=== PATIENT | male | born 1985 | race Caucasian/White ===

== ENCOUNTER 2023-08-26 14:33 | Outpatient (AMB) | payer MEDICAID, SELFPAY ==
--- NOTE | 2023-08-26 15:16 | A.SPINEOV_ITS ---
Intake Intake Visit Reasons: Recurrent back pain. Intake Note: Mr. Faust is here today c/o recurrent back pain. 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 We did an L4-S1 anterior/oblique interbody fusion on him a few years back. He recovered nicely from surgery, and eventually went back to work. 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 He was in his usual state of function, until sometime over the last 6 months to a year when he started to notice progressive intense pain in between his shoulder blades at the base of his neck radiating down into his left arm as well as a significant increase in his back pain going down to his left leg into his foot. The patient tried [id number] medications as needed without any relief. He continues to work as he needed the income. 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 He has not done any physical therapy or injections at this point because those things have not worked for him in the past. On my exam, he does have slight left hand weakness but other than that his exam is intact with normal reflexes, no Yanez's sign. What I suspect is going on here is that he has had a progression of the degeneration above his fusion that was seen on his previous MRI last year. Also, given that he is having hand weakness and pain radiating down his left arm with neck pain I suspect he also has progression of his previous cervical degenerative disc disease as well. Since all of his imaging is over a year old I would like to repeat cervical and lumbar and see him back for evaluation. I will get a set of x-rays on him when he returns to assess his lumbar hardware as well. He gets extremely claustrophobic in the MRIs, so I told him to find out what we gave him last time at his pharmacy and I would be glad to prescribe it. Total amount of time spent in this visit was 20 minutes in discussion of symptoms, previous cervical and lumbar imaging results and subsequent plan of care Yuval Valdez MD,PhD [facility] Orders: Orders MR lumbar spine wo/w con Today M51.36 - Other intervertebral disc degeneration, lumbar region MR cervical spine wo con Today M54.12 - Radiculopathy, cervical region Coding Level of Care Code Est Pt Level 3 (17996) Diagnoses Cervical radiculopathy M54.12 Lumbar degenerative disc disease M51.36
== END 2023-08-26 15:58 | disposition home or self-care (01) ==
PROVIDERS: Visit Provider Physician Assistant
DX: M54.12 Radiculopathy, cervical region (principal); M51.36 Other intervertebral disc degeneration, lumbar region
CPT/HCPCS: 99213

== ENCOUNTER → 2023-08-26 14:33 | Outpatient (BNVA) | payer MEDICAID, SELFPAY | PROVIDERS: Visit Provider Physician Assistant | DX: M54.12 Radiculopathy, cervical region (principal); M51.36 Other intervertebral disc degeneration, lumbar region | CPT/HCPCS: 99212 ==

== ENCOUNTER → 2023-12-02 14:22 | Outpatient (BNV) | payer MEDICAID, SELFPAY | PROVIDERS: Visit Provider Internal Medicine Cardiovascular Disease | DX: R94.31 Abnormal electrocardiogram [ECG] [EKG] (principal); Z01.810 Encounter for preprocedural cardiovascular examination | CPT/HCPCS: 93010 ==

== ENCOUNTER 2023-12-16 06:23 | Day surgery (SDC) | payer MEDICAID, SELFPAY ==
--- NOTE | 2023-12-02 | ECG_ITS ---
Test Reason : PREOP Blood Pressure : / mmHG Vent. Rate : 090 BPM Atrial Rate : 090 BPM P-R Int : 146 ms QRS Dur : 090 ms QT Int : 372 ms P-R-T Axes : 031 -11 027 degrees QTc Int : 455 ms Normal sinus rhythm Minimal voltage criteria for LVH, may be normal variant ( R in aVL ) Borderline ECG No previous ECGs available Referred By: Krista Camacho Electronically Signed By:JIM CHÁVEZ MD
[2023-12-02 13:23] VITALS: BP 167/82; PULSE 90; RESP 20; O2SAT 98; BMI 50.5
[2023-12-02 14:49] LABS: Hematocrit 47.6 % (42.0-52.0); Hemoglobin 15.9 g/dl (14.0-18.0); Mean Corpuscular HGB Conc 33.4 g/dl (31.0-36.0); Mean Corpuscular Hemoglobin 29.2 pg (27.0-33.0); Mean Corpuscular Volume 87.3 fL (80.0-98.0); Mean Platelet Volume 10.4 fL (9.4-12.4); Platelet Count 280 X10*3/uL (160-400); Red Blood Count 5.45 X10*6/uL (4.60-5.80); Red Cell Distribution Width 13.3 % (11.0-16.0); White Blood Count 9.6 X10*3/uL (4.8-10.8)
[2023-12-02 15:31] LABS: Estimated Average Glucose 111 mg/dL; Hemoglobin A1c % 5.5 % (<6.0)
[2023-12-02 16:13] LABS: Anion Gap 9 (12-20); Blood Urea Nitrogen 15 mg/dL (9-16); Calcium 9.5 mg/dL (8.4-10.2); Carbon Dioxide 29 mmol/L (22-29); Chloride 105 mmol/L (96-108); Creatinine Clr Calc Pharmacy 159.4; Estimated Glomerular Filt Rate > 60; Glucose Random 75 mg/dL (60-115); Potassium 3.9 mmol/L (3.3-5.1); Sodium 139 mmol/L (135-145)
[2023-12-16] VITALS (10 sets, daily range): BP systolic 107–165; BP diastolic 58–103; PULSE 81–113; RESP 12–20; TEMP 36.1–36.2; O2SAT 94–98
--- NOTE | ~2023-12-16 | FL_ITS ---
EXAMINATION: XR FLUOROSCOPY WITH IMAGES CLINICAL INFORMATION: Cervical disc replacement. COMPARISON: None available. TECHNIQUE: Fluoroscopy Supervised By: Dr. Flaquito Valdez. Fluoroscopy Time: 13.2. Cumulative Dose: 26673 mGy. DAP: 0.5420 Gy-cm2. Images: 4. FINDINGS: Intraoperative fluoroscopy and spot films were performed during a procedure in the OR. An anterior needle is seen at the C5-C6 level. A disc prosthesis is placed however based upon the cone nature of the radiographs I cannot ascertain the level but presumably this is C5-C6. Please see Dr. Flaquito Valdez' report for complete details. FL/FL guidance in OR IMPRESSION: Intraoperative fluoroscopy and spot films were obtained. Please see Dr. Flaquito Valdez' report for complete details.
[2023-12-16] MEDS: Gabapentin 300 MG CAPSULE PO ×2 (06:25)
[2023-12-16] MEDS: methocarbamoL 750 MG TABLET PO (06:25)
[2023-12-16] MEDS: Lactated Ringers 1,000 ML 100 ML IVCONT (06:48)
--- NOTE | 2023-12-16 06:57 | MHC.SHP ---
Pre-Procedural Eval Section A - 24 Hr Update-Section A only Date of Service: 12/16/23 The patient is an INPATIENT: No Changes since office visit: No Cold of Flu in the past 2 weeks, No New Medical Problems, No Changes in Medication and No Patient answered all questions The patient has been examined within 24 hours of the surgical procedure. The History & Physical has been completed within 30 days and I have reviewed it.: No Section B - Complete if H&P > 30 days Chief Complaint: Radiculopathy, cervical region Allergies: Allergies Allergy/AdvReac Type Severity Reaction Status Date / Time aluminum Allergy Intermediate Rash Verified 12/01/23 14:15 banana Allergy Intermediate Itching Verified 12/01/23 14:15 Review of Systems Sugical H&P ROS: Negative: Constitution, Cardiovascular, Respiratory, Neurological, Psychiatric, Hem-Onc, Allergic/Immunologic, Gastrointestinal, Genitourinary, Musculoskeletal, Integumentary, Endocrine and Eyes/Ears/Nose/Throat Exam Surgical H&P Exam: Not Evaluated: HEENT, Not Evaluated: Heart, Not Evaluated: Lungs, Not Evaluated: Extremities, Not Evaluated: Abdomen, Not Evaluated: Skin and Not Evaluated: Neurological Plan Diagnosis/Plan: Unchanged C5-6 total disk arthroplasty Time Spent With Patient Time: Total time managing care of this patient today __5__ minutes.
--- NOTE | 2023-12-16 07:15 | HO.ANESPROP2 ---
Documented by User: Krista Camacho NP 12/14/23 10:54 HPI - Anesthesia Eval Consult details Narrative: 38yo M for C5-6 Cervical Disc Replacement, 12/16/23 No recent illness No CP/SOB with work/walking daily Asthma. Stable. Symbicort. Albuterol 2-3 x weekly HTN. BP up at PAT. Takes arb QAM. Pt reports pain related GERD. Diet controlled, prn tums High risk STOP-bang Possible FAYE - Dr Lopez aware [facility] Active Problems Active Problems: All Active Problems Lumbar degenerative disc disease (Acute) Cervical radiculopathy (Acute) Past Medical History Medical History (Updated 12/02/23 @ 13:16 by Rand Neumann RN) History of MRSA infection Basal cell carcinoma Back pain Neck pain GERD (gastroesophageal reflux disease) Elevated cholesterol HTN (hypertension) Asthma Family History Family history of problems with anesthesia: No Surgical History Surgical History (Updated 12/02/23 @ 13:19 by Rand Neumann RN) Hx of wisdom tooth extraction Hx of tonsillectomy Hx of vasectomy Hx of hand surgery Hx of carpal tunnel repair Hx of lumbar discectomy History of lumbar fusion History of Problems with Anesthesia: No Social History Social History Are you a primary medicare sales representative to a significant other at home: No Do you presently have visiting nurse or other home services: No Patient Tobacco Use Status: Never used Tobacco Substance Use Type Other:: edibles Substance Use Frequency: Occasionally Have you been hit, kicked, punched, or otherwise hurt by someone within the past year? If so, by whom?: No Are you DNR?: No Advance Directives: No (significant other is primary contact) Advance Directives Information Provided: Yes Advance Directives on File: No Recently lost weight without trying: No Eating poorly because of decreased appetite: No Nutrition Risks: No Nutritional Risk Poor oral hygiene: No (extracted teeth) Meds Allergies Allergy/AdvReac Type Severity Reaction Status Date / Time aluminum Allergy Intermediate Rash Verified 12/01/23 14:15 banana Allergy Intermediate Itching Verified 12/01/23 14:15 Home Medications ?Medication ?Instructions ?Recorded ?Confirmed ?Last Taken ?Type albuterol sulfate 90 mcg/actuation 2 puff inhalation Q4H PRN wheezing 12/01/23 12/02/23 12/16/23 History aerosol inhaler (Ventolin HFA) budesonide-formoterol HFA 160 2 puff inhalation BID 12/01/23 12/02/23 12/16/23 History mcg-4.5 mcg/actuation aerosol inhaler (Symbicort) ibuprofen 800 mg tablet 800 mg PO TID 12/01/23 12/02/23 12/07/23 History loratadine 10 mg tablet 10 mg PO QAM 12/01/23 12/02/23 12/15/23 History losartan 25 mg tablet 25 mg PO QAM 12/01/23 12/02/23 12/15/23 History montelukast 10 mg tablet 10 mg PO QAM 12/01/23 12/02/23 12/15/23 History atorvastatin 10 mg tablet 10 mg PO QAM 12/02/23 12/02/23 12/16/23 History Exam Height,Weight and Vital Signs: Height 5 ft 4 in Weight 133.519 kg Last Vital Signs Pulse 90 12/02/23 13:23 Resp 20 12/02/23 13:23 BP 167/82 H 12/02/23 13:23 Pulse Ox 98 12/02/23 13:23 O2 Del Method Room Air 12/02/23 13:23 Pertinent Lab Results Pertinent Lab Results: Lab Results 12/02/23 Range/Units 14:18 WBC 9.6 (4.8-10.8) X10*3/uL RBC 5.45 (4.60-5.80) X10*6/uL Hgb 15.9 (14.0-18.0) g/dl Hct 47.6 (42.0-52.0) % MCV 87.3 (80.0-98.0) fL MCH 29.2 (27.0-33.0) pg MCHC 33.4 (31.0-36.0) g/dl RDW 13.3 (11.0-16.0) % Plt Count 280 (160-400) X10*3/uL MPV 10.4 (9.4-12.4) fL Absolute Nucleated RBC 0.000 (0.0-0.012) X10*3/uL Nucleated RBC % (auto) 0.0 (0.0-0.2) /100WBC Sodium 139 (135-145) mmol/L Potassium 3.9 (3.3-5.1) mmol/L Chloride 105 (96-108) mmol/L Carbon Dioxide 29 (22-29) mmol/L Anion Gap 9 L (12-20) BUN 15 (9-16) mg/dL Creatinine 0.79 (0.5-1.4) mg/dL Estim Creat Clear Calc 159.4 Estimated GFR > 60 Random Glucose 75 (60-115) mg/dL Estimat Average Glucose 111 mg/dL Hemoglobin A1c % 5.5 (<6.0) % Calcium 9.5 (8.4-10.2) mg/dL Narrative Narrative: EKG 11/2023 Vent. Rate : 090 BPM Atrial Rate : 090 BPM P-R Int : 146 ms QRS Dur : 090 ms QT Int : 372 ms P-R-T Axes : 031 -11 027 degrees QTc Int : 455 ms Normal sinus rhythm Minimal voltage criteria for LVH, may be normal variant ( R in aVL ) Borderline ECG No previous ECGs available Airway Mallampati Class: III TM Dist: <=3cm Neck ROM: Limited Loose/Missing/Broken Teeth: Yes (Molars missing, crowned molars) Heart: RRR Lungs: CTAB Assessment and Plan Assessment Anesthesia Assessment: Anesthesia Plan Discussed and PAT Visit Final Anesthetic Review Family History of Problems with Anesthesia: No History of Problems with Anesthesia: No Documented by User: Sandra Ellison DO 12/16/23 07:22 HPI - Anesthesia Eval Consult details Narrative: 38yo M for C5-6 Cervical Disc Replacement, 12/16/23 No recent illness No CP/SOB with work/walking daily Asthma. Stable. Symbicort. Albuterol 2-3 x weekly HTN. BP up at PAT. Takes arb QAM. Pt reports pain related GERD. Diet controlled, prn tums High risk STOP-bang [facility] Past Medical History Medical History (Updated 12/02/23 @ 13:16 by Rand Neumann RN) History of MRSA infection Basal cell carcinoma Back pain Neck pain GERD (gastroesophageal reflux disease) Elevated cholesterol HTN (hypertension) Asthma Family History Family history of problems with anesthesia: No Surgical History Surgical History (Updated 12/02/23 @ 13:19 by Rand Neumann RN) Hx of wisdom tooth extraction Hx of tonsillectomy Hx of vasectomy Hx of hand surgery Hx of carpal tunnel repair Hx of lumbar discectomy History of lumbar fusion History of Problems with Anesthesia: No Social History Social History Are you a primary medicare sales representative to a significant other at home: No Do you presently have visiting nurse or other home services: No Patient Tobacco Use Status: Never used Tobacco Substance Use Type Other:: edibles Substance Use Frequency: Occasionally Have you been hit, kicked, punched, or otherwise hurt by someone within the past year? If so, by whom?: No Are you DNR?: No Advance Directives: No (significant other is primary contact) Advance Directives Information Provided: Yes Advance Directives on File: No Recently lost weight without trying: No Eating poorly because of decreased appetite: No Nutrition Risks: No Nutritional Risk Poor oral hygiene: No (extracted teeth) Meds Allergies Allergy/AdvReac Type Severity Reaction Status Date / Time aluminum Allergy Intermediate Rash Verified 12/01/23 14:15 banana Allergy Intermediate Itching Verified 12/01/23 14:15 Home Medications ?Medication ?Instructions ?Recorded ?Confirmed ?Last Taken ?Type albuterol sulfate 90 mcg/actuation 2 puff inhalation Q4H PRN wheezing 12/01/23 12/02/23 12/16/23 History aerosol inhaler (Ventolin HFA) budesonide-formoterol HFA 160 2 puff inhalation BID 12/01/23 12/02/23 12/16/23 History mcg-4.5 mcg/actuation aerosol inhaler (Symbicort) ibuprofen 800 mg tablet 800 mg PO TID 12/01/23 12/02/23 12/07/23 History loratadine 10 mg tablet 10 mg PO QAM 12/01/23 12/02/23 12/15/23 History losartan 25 mg tablet 25 mg PO QAM 12/01/23 12/02/23 12/15/23 History montelukast 10 mg tablet 10 mg PO QAM 12/01/23 12/02/23 12/15/23 History atorvastatin 10 mg tablet 10 mg PO QAM 12/02/23 12/02/2312/15/24 History Exam Exam Date and Time: December 16, 2023 0712 Height,Weight and Vital Signs: Height 5 ft 4 in Weight 133.519 kg Last Vital Signs Pulse 90 12/02/23 13:23 Resp 20 12/02/23 13:23 BP 167/82 H 12/02/23 13:23 Pulse Ox 98 12/02/23 13:23 O2 Del Method Room Air 12/02/23 13:23 Height 5 ft 4 in Weight 133.519 kg Vital Signs Pulse Rate 90 12/02/23 13:23 Respiratory Rate 20 12/02/23 13:23 Blood Pressure 167/82 H 12/02/23 13:23 Pulse Oximetry 98 12/02/23 13:23 Oxygen Delivery Method Room Air 12/02/23 13:23 Temperature 97.1 F 12/16/23 06:27 Pulse Rate 81 12/16/23 06:27 Respiratory Rate 20 12/16/23 06:27 Blood Pressure 137/85 12/16/23 06:27 Pulse Oximetry 96 12/16/23 06:27 Oxygen Delivery Method Room Air 12/16/23 06:27 Airway Mallampati Class: III TM Dist: <=3cm Neck ROM: Poor (secondary to pain) Loose/Missing/Broken Teeth: Yes (some missing molars but patient denies any loose or broken teeth) Heart: S1S2 Assessment and Plan Assessment Anesthesia Assessment: Anesthesia Plan Discussed and Chart Reviewed Final Anesthetic Review Family History of Problems with Anesthesia: No History of Problems with Anesthesia: No NPO: Yes ASA Class: III Final Preanesthetic Review: No Changes in Pt Med Stat, Meds/Allgs Chart Reviewed, Consent Obtained/Reviewed and Anes Risks/Benef Reviewed Patient Risk: Intermediate Procedure Risk: Intermediate Anesthetic Plan Anesthetic Plan: GA and Agree w/ Assess. and Plan Disposition: Standard PACU
--- NOTE | 2023-12-16 07:39 | P.DS_ITS ---
DS: Providers Provider Date of Service: 12/16/23 Date of discharge: 12/16/23 Primary care physician: Nonstaff Physician Admitting clinician: Flaquito Valdez DS: Diagnosis Discharge Diagnosis (1) Cervical radiculopathy: Status: Acute DS: Summary Time Attestation Discharge Coordination Time (in mins): 4 Quality: Safe Use of Opioids Does Pt have an Active Cancer Diagnosis on the Problem List?: No Quality: Stroke Does the patient have a stroke diagnosis?: No Physical Exam Vital Signs: Vital Signs: Last Vital Signs Temp 97.1 F 12/16/23 06:27 Pulse 81 12/16/23 06:27 Resp 20 12/16/23 06:27 BP 137/85 12/16/23 06:27 Pulse Ox 96 12/16/23 06:27 O2 Del Method Room Air 12/16/23 06:27 BMI result Body Mass Index 50.5 Discharge Plan Discharge Patient Disposition: Home, Self-Care Referrals: Physician,Nonstaff [Primary Care Provider] - 1 Week Discharge Medications: New oxycodone 5 mg tablet 5 mg PO Q4H PRN (Reason: pain) Qty: 30 0RF Rx Instructions: Partial Fill upon patient request. docusate sodium [Colace] 100 mg capsule 100 mg PO BID Qty: 20 0RF Continued losartan 25 mg tablet 25 mg PO QAM albuterol sulfate [Ventolin HFA] 90 mcg/actuation HFA aerosol inhaler 2 puff INHALATION Q4H PRN (Reason: wheezing) loratadine 10 mg Tablet 10 mg PO QAM budesonide-formoterol [Symbicort] 160-4.5 mcg/actuation HFA aerosol inhaler 2 puff INHALATION BID ibuprofen 800 mg tablet 800 mg PO TID montelukast 10 mg tablet 10 mg PO QAM atorvastatin 10 mg tablet 10 mg PO QAM Discharge Orders: Discharge Order (Routine); Ordered 12/16/23 Ordered By: Yuval Franco Diet: Advance to usual diet Activity on Discharge: As tolerated Activity Restrictions/Additional Instructions: After your spinal surgery we ask you to observe the following restrictions/guidelines: Activity: It is normal to feel some discomfort as you increase your activity, but that will improve with time. We ask you avoid heavy lifting or acitivities that cause pain. As a general rule, 8lbs is a safe limit for lifting right after surgery. Walk as much as you feel comfortable but not to exhaustion. You will feel extra tired the first few days after surgery. Stay well hydrated. It is OK to walk up and down stairs You may return to driving when you are off narcotics (such as vicodin, oxycodone, dilaudid, etc), and you are back to normal functional capacity. If you have any concerns please check with office before driving. Return to work is specific to each patient and each surgery, so please speak with your doctor/PA at first follow up. Please bring paperwork such as FMLA at that time if you need it filled out. Medications: For optimum pain control, it is best to start with a combination of 500 mg of Tylenol every 4 hours with 600 mg of Motrin every 8 hours, and use narcotics as needed in between for breakthrough pain. We will give you a short supply of narcotics after surgery (usually one weeks worth). If you need more please call the office but do not use more than presc ribed. You will need to give our office 48 hours notice if you need narcotics refilled and we do not fill narcotics on weekends or evenings. If you are on a narcotic, it is a good idea to take a stool softener such as colace or senna to avoid constipation If you take blood thinner such as aspirin, Plavix, Coumadin, Effient, Eliquis etc for conditions such as Afib, DVT, Pulmonary embolus, coronary disease, stents etc please speak with your surgeon about specific details as to when you can resume these medications. You can resume NSAIDs on post op day 1 (eg: Motrin, Naproxen, etc). Follow up: Please call the office, , after surgery to arrange a 3 week follow up for wound check. Wound Care: You may remove your dressing on the first day after surgery. ?You may ?leave open to air. Please do not remove the steri strips underneath. they will fall off on their own in one week. IT IS NORMAL FOR THE WOUND TO OOZE OR BE BLOODY FOR A FEW DAYS AFTER SURGERY. ?IF THIS HAPPENS JUST PLACE NEW DRESSING OVER IT TO AVOID STAINING CLOTHES. You may shower on post op day # 1 We ask that you do not let the water soak the wound. If it does get wet, just t mayteel dry lightly. Please do not scrub your incision or place any type of chemical/ointment on the wound. No tub baths, pools or jacuzzis for one month. If you have any leaking or redness from your wound, or fevers, please call office Print Language: Mongolian
--- NOTE | 2023-12-16 09:12 | W.PM.OPN ---
Operative Note Operative Note Date of Service: 12/16/23 Narrative: Preoperative Diagnosis: Bilateral cervical radiculopathy, left more than right Procedure: C5-C6 total disc arthropathy; microscope Informed Consent was obtained for this operation. I have explained the nature, purpose and benefits of the operation. I have discussed the risks and benefit of the operation including possible complications or adverse events with patient/family. Alternative(s) were discussed with the patient with their relative benefits and risks as well as the consequences of not accepting the operation were included in obtaining consent. Surgeon: URIEL LOZANO MD, PHD Procedure Assisted By: kieran Rausch Description of Procedure: This patient is suffering from a bilateral cervical radiculopathy. MRI shows compression of the bilateral C6 nerve roots, left more than right. He was offered a total disc arthroplasty of this level. The procedure complications were explained. The patient was consented. The patient was brought to the operating room and endotracheally intubated. The patient was put in supine position with slight extension of the neck. Prep and drape was done followed by timeout. A mid cervical incision was made followed by opening of the platysma. The prevertebral fascia was reached following the natural planes while the physician assistant offset press operator provided manual retraction. The prevertebral fascia was opened to expose the disc space. A spinal needle was placed in the disk space to confirm the correct level with xray. The longus colli muscles were released bilaterally and a self retaining retractor was inserted. Two Edwards pins were placed in the [] vertebral bodies and distraction was give over the interspace. The discectomy was completed toward the posterior annulus of the disc. The microscope was brought in. The remainder of the discectomy was completed. The posterior ligament was opened and resected to expose the underlying dura. Bilateral foraminotomies were done. A trial implant was inserted and was centered in the AP projection. Then the final implant with the diameters of 17 x 14 x 5 mm height of [place] spine was inserted under fluoroscopic guidance. Final x-rays in AP and lateral projection showed a satisfactory position of the artificial disc. The physician assistant offset press operator took over. The Edwards pin was removed. Hemostasis was done. He closed the incision in 2 layers with a 3-0 Vicryl. Steri-Strips used to approximate incision. An OpSite with Tegaderm was used to cover the incision. All sponge and needle counts were correct. Patient was extubated and transported in stable is to recovery room. Anesthesia: General Estimated Blood Loss (ml): 20 mL Duration of Surgery: 50 minutes Postoperative Plan: Discharge home Complications: None
[2023-12-16] MEDS: HYDROmorphone HCl 0.5 MG/0.5 ML SYRINGE IVPUSH (09:34)
[2023-12-16] MEDS: Albuterol Sulfate (0.083%) 2.5 MG/3 ML VIAL.NEB INHALE (09:48)
[2023-12-16] MEDS: oxyCODONE HCl Immed Release 5 MG TABLET 10 MG PO (10:01)
== END 2023-12-16 11:39 | disposition home or self-care (01) ==
PROVIDERS: Nurse Practitioner; Visit Provider Neurological Surgery
PROC: (CPT 22856; principal; 2023-12-16 07:30)
DX: M54.12 Radiculopathy, cervical region (principal); M51.36 Other intervertebral disc degeneration, lumbar region; I10 Essential (primary) hypertension; J45.909 Unspecified asthma, uncomplicated; Z79.899 Other long term (current) drug therapy; Z79.51 Long term (current) use of inhaled steroids
CPT/HCPCS: 22856; 36415; 80048; 83036; 85027; 93005; C1776; J0131; J0330; J0690; J1100; J1170; J2250; J2405; J2704; J3010

== ENCOUNTER → 2023-12-16 06:23 | Outpatient (BNV) | payer MEDICAID, SELFPAY | PROVIDERS: Visit Provider Physician Assistant | DX: M54.12 Radiculopathy, cervical region (principal) | CPT/HCPCS: 22856; 99499 ==

== ENCOUNTER 2024-01-10 11:33 | Outpatient (REF) | payer MEDICAID, SELFPAY ==
--- NOTE | ~2024-01-10 | XR_ITS ---
EXAMINATION: XR LUMBOSACRAL SPINE WITH FLEXION AND EXTENSION CLINICAL INFORMATION: Other intervertebral disc degeneration, lumbar spine COMPARISON: None available. TECHNIQUE: Standing AP, lateral, lateral flexion and extension views of the lumbar spine were obtained FINDINGS: Small riblets extend off the T12 vertebral body. There are 5 nonrib-bearing lumbar-type vertebral bodies. The height of vertebral bodies is well-maintained. There is no significant disc space narrowing. Transpedicular screws and and adjoining rods are seen at L4-S1. Interbody disc spacers are seen at L4-L5 and L5-S1. The hardware appears intact. There is grade 1 anterolisthesis of L5 with respect to S1. This increases with flexion and decreases with extension. XR/XR lumbar spine 4V min IMPRESSION: 1. L4-S1 fusion without evidence of hardware complication. 2. Grade 1 anterolisthesis of L5 with respect to S1, as discussed above.
== END 2024-01-10 11:34 | disposition home or self-care (01) ==
LOC: HO.HOSX 11:33
PROVIDERS: Visit Provider Physician Assistant
DX: M51.36 Other intervertebral disc degeneration, lumbar region (principal); M54.12 Radiculopathy, cervical region; Z98.1 Arthrodesis status
CPT/HCPCS: 72110; 99212

== ENCOUNTER 2024-01-10 11:33 | Outpatient (AMB) | payer MEDICAID, SELFPAY ==
--- NOTE | 2024-01-10 12:19 | HO.SPINEOV ---
Intake Visit Reasons: 1st post op Intake Note: Mr. Faust is here today for his 1st post-op. 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 He is doing generally very well with complete resolution of his right arm pain and minimal postoperative affects. Had a little bit of dysphagia in the beginning but that went away. He still has some stiffness in between his shoulder blades lower in the cervical spine. Is strength is normal in his wound healed up beautifully. We discussed activity guidelines, restrictions and expectations after total disc arthroplasty. With regard to his lumbar spine which has been a revolving door pain and discomfort forearm over the last year. I reviewed his MRI with him again showing some early signs adjacent segment disease but he has not fully more out the disc. Despite this he has intense amounts of pain primarily on the left side of his low back. I will get a set of flexion-extension x-rays. We talked about the fact that he is very young and we would like to avoid doing anymore fusion surgeries on him unless we absolutely have to. I am going to see him back in [address] Valdez and we can re-evaluate the lumbar spine with the x-rays at that time and see how he is doing in terms of his overall pain. Yuval Valdez MD, PhD [facility] Orders: Orders XR lumbar spine 4V min Today M51.36 - Other intervertebral disc degeneration, lumbar region Coding Level of Care Code Global (62462) Diagnoses Lumbar degenerative disc disease M51.36 Cervical radiculopathy M54.12
== END 2024-01-10 13:04 | disposition home or self-care (01) ==
PROVIDERS: Visit Provider Physician Assistant
DX: M51.36 Other intervertebral disc degeneration, lumbar region (principal); M54.12 Radiculopathy, cervical region
CPT/HCPCS: 99024

== ENCOUNTER 2024-07-13 15:16 | Outpatient (AMB) | payer MEDICAID, SELFPAY ==
--- NOTE | 2024-07-13 15:18 | A.SPINEOV_ITS ---
Intake Visit Reasons: severe back pain Intake Note: Mr. Faust is here today c/o Severe back pain. Survey Coordinator Required: No Allergies aluminum Allergy (Intermediate, Verified 07/13/24 15:19) Rash banana Allergy (Intermediate, Verified 07/13/24 15:19) Itching Assessment & Plan Assessment & Plan (1) Cervical radiculopathy: Code(s): M54.12 - Radiculopathy, cervical region Category: Medical Plan: Mr Faust is here in follow up. We did a C5-6 total disc arthroplasty on him earlier this year and he seemed to have good relief of the symptoms. Unfortunately over the last few months, he has had a return of the pain shooting down his right arm even more intense than it was before surgery. It seems now to go to his hand and is giving him some weakness and he is dropping things in his hand. There is also numbness of the right hand now was well more toward the center of the hand. It is very intense when he is trying to sleep. He has tried btwy-toj-acsdjju medications for like ibuprofen and Tylenol without any relief. Muscle relaxers etc.. He is also having a lot of increased pain in his low back. We knew about some adjacent segment disease at the L3-4 area (previous history of L4-S1 anterior lumbar interbody fusion). Unfortunately the pain going down the right leg has intensified significantly since his last MRI. He works a very physical and active job and due to the amount of lifting and work on heavy equipment, the combination of these 2 pains together his made it almost impossible to get any relief. He is not sleeping, work is absolutely miserable and he is here today to follow up to see if there is anything we can do. On my exam he appears uncomfortable, he is demonstrating some right hand weakness which is new. Has diminished right triceps reflex now. Lower extremity as well, he has diminished patellar reflex now which was not present during my last visit. His strength in the lower extremities normal. My suspicion is he is getting some kind of progression of degeneration in his neck and his lumbar spine. I would like new MRIs of both of these areas to re- evaluate to see if he is a surgical candidate. He is requesting Xanax for the MRI, I told him to find out how much he took last time and I would be happy to prescribe it as it worked well for him. Total amount of time spent in this visit was 20 minutes in discussion of symptoms, ordering MRI imaging results and subsequent plan of care Yuval Valdez MD,PhD [facility] (2) Lumbar degenerative disc disease: Code(s): M51.36 - Other intervertebral disc degeneration, lumbar region Category: Medical Plan: See above Plan See above Orders: Orders MR lumbar spine wo con Today M51.36 - Other intervertebral disc degeneration, lumbar region MR cervical spine wo con Today M54.12 - Radiculopathy, cervical region Coding Level of Care Code Est Pt Level 3 (07961) Diagnoses Cervical radiculopathy M54.12 Lumbar degenerative disc disease M51.36
== END 2024-07-13 16:23 | disposition home or self-care (01) ==
PROVIDERS: Visit Provider Physician Assistant
DX: M54.12 Radiculopathy, cervical region (principal); M51.369 Other intervertebral disc degeneration, lumbar region without mention of lumbar back pain or lower extremity pain
CPT/HCPCS: 99213

== ENCOUNTER → 2024-07-13 15:16 | Outpatient (BNVA) | payer MEDICAID, SELFPAY | PROVIDERS: Visit Provider Physician Assistant | DX: M54.12 Radiculopathy, cervical region (principal); M51.369 Other intervertebral disc degeneration, lumbar region without mention of lumbar back pain or lower extremity pain | CPT/HCPCS: 99212 ==

== ENCOUNTER 2024-09-15 10:01 | Outpatient (REF) | payer MEDICAID, SELFPAY ==
--- OUTSIDE RECORDS SUMMARY | 2024-09-15 10:48 | XMS_ITS | Encounter Summary ---
Author Organization [facility] Address [address] [place] [address] Care Team Providers Care Food Service Steward Name Role Phone Jeanne Dobson Primary Care Provider +1- [phone] Encounter Details Date Type Department Care Team (Late st Contact Info) Description 09/07/2024 Orders Only [facility] 175 [facility] [address] [place] [address] Jeanne Dobson PA [address] [place] [address] Social History Tobacco Use Types Packs/Day Years Used Date Smoking Tobacco: Never Smokeless Tobacco: Never Comments:: Alcohol Use Standard Drinks/Week Comments Not Currently 0 (1 standard drink = 0.6 oz pur e alcohol) occ Sex and Gender Information Value Date Recorded Sex Assigned at Male 10/08/2023 4:06 PM EST Legal Sex Male 7:26 AM EDT Gender Identity Not on file Sexual Orientation Not on file documented as of this encounter Plan of Treatment Upcoming Encounters Date Type Department Care Team (Late st Contact Info) Description 10/03/2024 3:00 PM EST Follow-Up [facility] 175 [facility] [address] [place] [address] Jeanne Dobson PA [address] [place] [address] documented as of this encounter Visit Diagnoses Not on filedocumented in this encounter Care Teams Food Service Steward Relationship Specialty Start Date End Date Jeanne Dobson PA [address] [place] [address] PCP - General Physician Absorption Plant Operator 03/09/22 documented as of this encounter
--- OUTSIDE RECORDS SUMMARY | 2024-09-15 10:48 | XMS_ITS | Clinical Summary ---
Author Organization [facility], Address [address] [place] [address] Phone Care Team Providers Care Janitor Helper Name Role Phone Jeanne Dobson Primary Care Provider Unavailable Allergies No known active allergies Medications LISINOPRIL PO Take by mouth Active ALBUTEROL IN Inhale Active Loratadine 10 MG capsule Take by mouth Active dexamethasone (DECADRON) 4 MG tablet Take 4 mg by mouth 03/25/2021 Active diazePAM (VALIUM) 5 MG tablet TAKE 1 TABLET BY MOUTH EVERY 6 TO 8 HOURS NEEDED MUSCLE SPASMS 03/25/2021 Active doxycycline (VIBRAMYCIN) 100 MG capsule TAKE 1 CAPSULE BY MOUTH TWICE DAILY FOR 10 DAYS 04/17/2021 Active montelukast (SINGULAIR) 10 MG tablet Take 10 mg by mouth 1 (one) time each day 03/25/2021 Active oxyCODONE (ROXICODONE) 5 MG immediate release tablet TAKE 1 TABLET BY MOUTH EVERY 4 TO 6 HOURS NEEDED FOR SEVERE PAIN 03/25/2021 Active traMADol (ULTRAM) 50 MG tablet Take 50 mg by mouth 3 (three) times a day if needed 02/27/2021 Active Active Problems Problem Noted Date Diagnosed Date Chronic low back pain 05/01/2021 Hypertension 05/01/2021 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 Social History Tobacco Use Types Packs/Day Years Used Date Smoking Tobacco: Never Assessed Sex and Gender Information Value Date Recorded Sex Assigned at Not on file Legal Sex Male 9:16 AM EDT Gender Identity Not on file Sexual Orientation Not on file Last Filed Vital Signs Vital Sign Reading Time Taken Comments Blood Pressure 144/98 05/05/2021 11:08 AM EDT Pulse 76 05/05/2021 11:08 AM EDT Temperature 36.7 ??C (98.1 ??F) 05/05/2021 11:08 AM E DT Respiratory Rate - - Oxygen Saturation 98% 05/05/2021 11:08 AM EDT Inhaled Oxygen Concentration - - Weight 111 kg (245 lb) 05/05/2021 11:08 AM EDT Height 162.6 cm (5' 4 ) 05/05/2021 11:08 AM EDT Body Mass Index 42.05 05/05/2021 11:08 AM EDT Plan of Treatment Health Maintenance Due Date Last Done Comments Pneumococcal Vaccine: Pediat rics (0 to 5 Years) and At-Risk Patients (6 to 64 Years) (1 of 2 - PCV) 1991 Hepatitis B Vaccine (1 of 3 - 19+ 3-dose series) 06/27 Influenza Vaccine (#1) [address] [place] [id number] [place] Care Teams Janitor Helper Relationship Specialty Start Date End Date Jeanne Dobson PA [address] [place] [address] [place] [address] PCP - General Nutrition 05/13/21
--- OUTSIDE RECORDS SUMMARY | 2024-09-15 10:48 | XMS_ITS | Encounter Summary ---
Author Organization [facility] Address [address] [place] [address] Care Team Providers Care Drop Hammer Set Up Operator Name Role Phone Jeanne Dobson Primary Care Provider +1- [phone] Reason for Referral * MRI/CAT/PET Scan (Routine) - Pending Review Specialty Diagnoses / Procedures Referred By Fareed ramirez Referred To Contact Radiology Diagnoses Other intervertebral disc degeneration, lumbar region Radiculopathy, cervical region Procedures MRI Lumbar Spine WO Contrast Yuval Franco PA [address] [place] [address] Phone: tel: fax: Referral ID Status Reason Start Date Expiration Date V isits Requested Visits Authorized [id number] Pending Review 09/13/2024 03/15/2026 1 1 Encounter Details Date Type Department Care Team (Late st Contact Info) Description 09/13/2024 Orders Only [facility] [address] [place] [address] Yuval Franco PA [address] [place] [address] Other intervertebral disc degeneration, lumbar region; Radiculopathy, cervical region Social History Tobacco Use Types Packs/Day Years [...] Info) Description 10/03/2024 3:00 PM EST Follow-Up [facility] 175 [facility] 175 [place] [address] Jeanne Dobson PA [address] [place] [address] Scheduled Orders Name Type Priority Associated Diagnoses Orde r Schedule MRI Lumbar Spine WO Contrast Imaging [facility] Routine Other intervertebral disc degeneration, lumbar region Radiculopathy, cervical region 1 Occurrences starting 09/13/2024 until 10/11/2025 documented as of this encounter Visit Diagnoses Diagnosis Other intervertebral disc degeneration, lumbar region Radiculopathy, cervical region Brachial neuritis or radiculitis nos documented in this encounter Care Teams Drop Hammer Set Up Operator Relationship Specialty Start Date End Date Jeanne Dobson PA [address] [place] [address] PCP - General Physician Internet Architect 03/09/22 documented as of this encounter
--- OUTSIDE RECORDS SUMMARY | 2024-09-15 10:48 | XMS_ITS | Encounter Summary ---
Author Organization [facility] Address [address] [place] [address] Care Team Providers Care Physician Practice Market Manager Name Role Phone Jeanne Dobson Primary Care Provider +1- [phone] Reason for Visit * Reason Onset Date Comments Medication PA 08/30/2024 Encounter Details Date Type Department Care Team (Late st Contact Info) Description 08/30/2024 Telephone [facility] 175 [facility] [address] [place] [address] Jeanne Dobson PA [address] [place] [address] Medication PA Social History Tobacco Use Types Packs/Day Years [...] on file documented as of this encounter Miscellaneous Notes * Telephone Encounter - Duyen Hackett MA - 08/31/2024 2:51 PM EST Patient notified that the prescription does not need a new PA and he should be able to pick it up at the pharmacy when it is available. * Telephone Encounter - Duyen Hackett MA - 08/31/2024 9:21 AM EST PA was approved for Zepbound 2.5 mg/0.5 ml from 08/09/24-02/06/25, dosing was increased and sent 08/28/2024 for Zepbound 5 mg/0.5 ml. PA was attempted on Cover My Meds and was told that medication is Available without authorization. Patient does not need PA, the pharmacy should be able to fill this prescription for this patient. * Telephone Encounter - Jyoti Rowe - 08/30/2024 2:54 PM EST Patient called to report his pharmacy will need a PA for Zepbound , Please advise documented in this encounter Plan of Treatment Upcoming Encounters Date Type Department Care Team (Late st Contact Info) Description 10/03/2024 3:00 PM EST Follow-Up [facility] 175 [facility] [address] [place] [address] Jeanne Dobson PA [address] [place] [address] documented as of this encounter Visit Diagnoses Not on filedocumented in this encounter Care Teams Physician Practice Market Manager Relationship Specialty Start Date End Date Jeanne Dobson PA [address] [place] [address] PCP - General Physician Clinical Care Leader 03/09/22 documented as of this encounter
--- OUTSIDE RECORDS SUMMARY | 2024-09-15 10:48 | XMS_ITS | Encounter Summary ---
Author Organization [facility] Address [address] [place] [address] Care Team Providers Care Trichologist Name Role Phone Jeanne Dobson Primary Care Provider +1- [phone] Reason for Referral * MRI/CAT/PET Scan (Routine) - Pending Review Specialty Diagnoses / Procedures Referred By Fareed ramirez Referred To Contact Radiology Diagnoses Other intervertebral disc degeneration, lumbar region Radiculopathy, cervical region Procedures MRI Cervical Spine WO Contrast Yuval Franco PA [address] [place] [address] Phone: tel: fax: Referral ID Status Reason Start Date Expiration Date V isits Requested Visits Authorized [id number] Pending Review 09/04/2024 03/06/2026 1 1 Encounter Details Date Type Department Care Team (Late st Contact Info) Description 09/12/2024 Orders Only [facility] [address] [address] Yuval Franco PA [address] [place] [address] Other intervertebral disc degeneration, lumbar region; Radiculopathy, [...] Info) Description 10/03/2024 3:00 PM EST Follow-Up [facility] 175 [facility] 175 [place] [address] Jeanne Dobson PA [address] [place] [address] Scheduled Orders Name Type Priority Associated Diagnoses Orde r Schedule MRI Cervical Spine WO Contrast Imaging [facility] Routine Other intervertebral disc degeneration, lumbar region Radiculopathy, cervical region 1 Occurrences starting 09/04/2024 until 10/05/2025 documented as of this encounter Visit Diagnoses Diagnosis Other intervertebral disc degeneration, lumbar region Radiculopathy, cervical region Brachial neuritis or radiculitis nos documented in this encounter Care Teams Trichologist Relationship Specialty Start Date End Date Jeanne Dobson PA [address] [place] [address] PCP - General Physician Habilitation Assistant 03/09/22 documented as of this encounter
--- OUTSIDE RECORDS SUMMARY | 2024-09-15 10:48 | XMS_ITS | Clinical Summary ---
Author Organization [facility] Address [address] [place] [address] Care Team Providers Care Washing Machine Mechanic Name Role Phone Unavailable Primary Care Provider Unavailabl e Social History Tobacco Use Types Packs/Day Years Used Date Smoking Tobacco: Never Assessed Sex and Gender Information Value Date Recorded Sex Assigned at Not on file Gender Identity Not on file Sexual Orientation Not on file Job Start Date Occupation Industry Not on file Not on file Not on file Plan of Treatment Health Maintenance Due Date Last Done Comments Hepatitis B Vaccines (1 of 3 - 3-dose series) 1985 Hepatitis C Screening 1985 COVID-19 Vaccine (#1) 1985 Depression Screening 1997 Preventative Health Evaluation 2003 DTap / Tdap / Td (1 - Tdap) 2004 Influenza Vaccine (#1) 2024 Pneumococcal Vaccine Aged Out No long er eligible based on patient's age to complete this topic RSV Ped < 20 months Aged Out No longe r eligible based on patient's age to complete this topic
--- OUTSIDE RECORDS SUMMARY | 2024-09-15 10:48 | XMS_ITS | Encounter Summary ---
Author Organization [facility] Address [address] [place] [address] Care Team Providers Care Care Process Manager Name Role Phone Jeanne Dobson Primary Care Provider +1- [phone] Reason for Visit * Reason Comments Med Refill Encounter Details Date Type Department Care Team (Late st Contact Info) Description 08/22/2024 Refill [facility] 175 [facility] [address] [place] [address] Jeanne Dobson PA [address] [place] [address] Hyperlipidemia, unspecified hyperlipidemia type Social History Tobacco Use Types Packs/Day Years Used Date Smoking Tobacco: Never Smokeless Tobacco: Never Comments:: Alcohol Use Standard Drinks/Week Comments Yes 0 (1 standard drink = 0.6 oz [...] Info) Description 10/03/2024 3:00 PM EST Follow-Up [facility] 175 [facility] [address] [place] [address] Jeanne Dobson PA [address] [place] [address] documented as of this encounter Visit Diagnoses Diagnosis Hyperlipidemia, unspecified hyperlipidemia type documented in this encounter Care Teams Care Process Manager Relationship Specialty Start Date End Date Jeanne Dobson PA [address] [place] [address] [place] [address] PCP - General Physician Stained Glass Glazier Helper 03/09/22 documented as of this encounter
--- OUTSIDE RECORDS SUMMARY | 2024-09-15 10:48 | XMS_ITS | Clinical Summary ---
Author Organization [facility] Address [address] [place] [address] Care Team Providers Care Isotope Hydrologist Name Role Phone Unavailable Primary Care Provider Unavailabl e Social History Tobacco Use Types Packs/Day Years Used Date Smoking Tobacco: Never Assessed Sex and Gender Information Value Date Recorded Sex Assigned at Not on file Gender Identity Not on file Sexual Orientation Not on file Plan of Treatment Health Maintenance Due Date Last Done Comments DTaP,Tdap,and Td Vaccines (1 - Tdap) 2004 Hepatitis B Vaccines (1 of 3 - 19+ 3-dose series) 2004 Cholesterol Screening (Lipid Panel) 07/11/2022 Depression Screening 07/11/2022 HIV Screening 07/11/2022 Hepatitis C Screening 07/11/2022 Social Influencers of Health Screening 07/11/2022 COVID-19 Vaccine (2023-2 5 season) 2024 Influenza Vaccine (#1) 2024 HIB Vaccines Aged Out No longer eligi ble based on patient's age to complete this topic HPV Vaccines Aged Out No longer eligi ble based on patient's age to complete this topic Hepatitis A Vaccines Aged Out No long er eligible based on patient's age to complete this topic IPV Vaccines Aged Out No longer eligi ble based on patient's age to complete this topic MMR Vaccines Aged Out No longer eligi ble based on patient's age to complete this topic Meningococcal ACWY Vaccine Aged Out N o longer eligible based on patient's age to complete this topic Pneumococcal Vaccine: Pediat rics (0 to 5 Years) and At-Risk Patients (6 to 64 Years) Aged Out No longer eligible b ased on patient's age to complete this topic RSV Immunization Patients Un chanelle 20 months Aged Out No longer eligible b ased on patient's age to complete this topic Varicella Vaccines Aged Out No longer eligible based on patient's age to complete this topic
--- OUTSIDE RECORDS SUMMARY | 2024-09-15 10:48 | XMS_ITS | Encounter Summary ---
Author Organization [facility] Address [address] [place] [address] Care Team Providers Care Rn Case Management Name Role Phone Jeanne Dobson Primary Care Provider +1- [phone] Reason for Referral * MRI/CAT/PET Scan (Routine) - Pending Review Specialty Diagnoses / Procedures Referred By Fareed ramirez Referred To Contact Radiology Diagnoses Other intervertebral disc degeneration, lumbar region Radiculopathy, cervical region Procedures MRI Cervical Spine WO Contrast Yuval Franco PA [address] [place] [address] Phone: tel: fax: Referral ID Status Reason Start Date Expiration Date V isits Requested Visits Authorized [id number] Pending Review 09/13/2024 03/15/2026 1 1 Encounter Details Date Type Department Care Team (Late st Contact Info) Description 09/13/2024 Orders Only [facility] [address] [address] Yuval Franco PA [address] [place] [address] Other intervertebral disc degeneration, lumbar region; Radiculopathy, [...] Info) Description 10/03/2024 3:00 PM EST Follow-Up [facility] 175 [facility] 175 [place] [address] Jeanne Dobson PA [address] [place] [address] Pending Results Name Type Priority Associated Diagnoses Date /Time MRI Cervical Spine WO Contrast Imaging [facility] Routine Other intervertebral disc degeneration, lumbar region Radiculopathy, cervical region 09/13/2024 10:00 PM EST Scheduled Orders Name Type Priority Associated Diagnoses Orde r Schedule MRI Cervical Spine WO Contrast Imaging [facility] Routine Other intervertebral disc degeneration, lumbar region Radiculopathy, cervical region 1 Occurrences starting 09/13/2024 until 10/11/2025 documented as of this encounter Visit Diagnoses Diagnosis Other intervertebral disc degeneration, lumbar region Radiculopathy, cervical region Brachial neuritis or radiculitis nos documented in this encounter Care Teams Rn Case Management Relationship Specialty Start Date End Date Jeanne Dobson PA [address] [place] [address] PCP - General Physician Burnishing Machine Operator 03/09/22 documented as of this encounter
--- OUTSIDE RECORDS SUMMARY | 2024-09-15 10:48 | XMS_ITS | Data Portability ---
Author Organization [facility] [employer] [facility] Address [address] [place] [address] Care Team Providers Care Cyber Systems Operations Specialist Name Role Phone ESTRELLA GORDILLO Primary Care Provider [phone] DUY ESTRELLA Referring Provider Assessment No assessment recorded. Plan of Treatment Reminders Order Date Submit Date Provider Last Modified By Organization Details Last Modified Time Details Appointments None recorded. Lab drug of abuse panel, urine - chain of custody - 10 drug screen 018 018 [facility] Patient Reg, [address] [place], [address], 8 17:27:37 Referral None recorded. Procedures None recorded. Surgeries None recorded. Imaging None recorded. Medication Orders None recorded. Patient TargetsNo targets recorded. Patient InstructionsNo instructions recorded. Reason for Referral None Reported. Results Created Date Observation Date Name Description Value Unit Range Abnormal Flag Note LastModifiedBy Organization Detail LastModifiedTime Result Notes None recorded. Medical Equipment None Reported. Allergies No known drug allergies Medications Name Sig Start Date Stop Date Status Note LastModified by Organization Details LastModified Time topiramate 100 mg tablet active Not Available Not Availabl e Not Available topiramate 50 mg tablet active Not Available Not Available No t Available loratadine active Not Available Not Av ailable Not Available Singulair active Not Available Not Casie ilable Not Available ProAir HFA active Not Available Not Av ailable Not Available Vitals Date Recorded Heart rate Body height Body mass index (BMI) Body weight Systolic blood pressure Diastolic blood pressure Provider Name and Address Organization Details Last Updated DateTime 8 93 /min 162.56 cm 36 kg/m2 56868.4 g 124 mm[Hg] 86 mm[Hg] Denise Lobato NP [facility] 8 10:58:29 Social History None recorded. Functional Status None recorded. Mental Status None recorded. Family History Nothing Reported. Medical History No medical history recorded. Past Encounters Encounter ID Performer Location Encounter Start Date Encounter Closed Date Diagnosis/Indication Diagnosis SNOMED-CT Code Diagnosis ICD10 Code Diagnosis Note [id number] Denise Lobato NP Occupatio formerly [employer], 1928–[address] [place] [address] 05/06/2018 09:44:02 05/06/2018 11:24:25 History and physical examination, pre-employment [id number] Z02.1 [id number] Silvio carrasquillo DO [facility] [address] [address] 08/14/2019 09:00:48 08/14/2019 09:59:25 [id number] Silvio carrasquillo DO [facility] [address] [address] 09/22/2019 12:57:49 09/22/2019 13:04:10 Health Concerns Section Related Observation LastModified by Organization Detai ls LastModified Time None Recorded Concern Status LastModified by Organization Details LastModified Time None Recorded Advance Directives Directive None Recorded Payers Encounter Date Sequence Insurance Name Policy Number Policy Drake Covered Member ID Drake Member ID Guarantor Name 05/06/2018 [employer] Yuval Faust [employer] Yuval Faust Notes Date Note Type Note Provider Name and Address Organization Details Recorded Time 05/06/2018 text/html Patient presents to the office for a pre-employment physical as a new employee for [employer]. He believes, based upon the job description that was provided to him that he can handle all duties and responsibilities of the job. He denies any history of work related injuries. Denise Lobato NP [facility] 05/06/2018 10:58:43
--- OUTSIDE RECORDS SUMMARY | 2024-09-15 10:48 | XMS_ITS | Encounter Summary ---
Author Organization [facility] Address [address] [place] [address] Care Team Providers Care Slps Name Role Phone Jeanne Dobson Primary Care Provider +1- [phone] Reason for Visit * Reason Onset Date Comments [facility] Medication Refill 09/05/2024 Encounter Details Date Type Department Care Team (Late st Contact Info) Description 09/05/2024 Telephone [facility] 175 [facility] [address] [place] [address] Jeanne Dobson PA [address] [place] [address] CHC Medication Refill Social History Tobacco Use Types Packs/Day Years [...] encounter Miscellaneous Notes * Telephone Encounter - Olya Eric RN - 09/07/2024 12:19 PM EST Spoke to patient, confirmed by full name and , made him aware Jeanne was sending Ativan for him and that he will need a ride to and from his MRI appointment. Patient verbalized understanding and stated he already has one set up for that day. * Telephone Encounter - Edgardo Mosqueda - 09/05/2024 1:05 PM EST Pt has come in stating he has an MRI being done 09/13 and is requesting medications be sent. PT does not remember what meds PCP sent last time Pt had MRI. Please advise documented in this encounter Plan of Treatment Upcoming Encounters Date Type Department Care Team (Late st Contact Info) Description 10/03/2024 3:00 PM EST Follow-Up [facility] 175 [facility] [address] [place] [address] Jeanne Dobson PA [address] [place] [address] documented as of this encounter Visit Diagnoses Not on filedocumented in this encounter Care Teams Slps Relationship Specialty Start Date End Date Jeanne Dobson PA [address] [place] [address] PCP - General Physician Office Worker 03/09/22 documented as of this encounter
--- OUTSIDE RECORDS SUMMARY | 2024-09-15 10:48 | XMS_ITS | Encounter Summary ---
Author Organization [facility] Address [address] [place] [address] Care Team Providers Care Neurology Physician Assistant Name Role Phone Jeanne Dobson Primary Care Provider +1- [phone] Reason for Visit * Reason Comments Medication Visit Flu Vaccine Pt denied Encounter Details Date Type Department Care Team (Late st Contact Info) Description 08/28/2024 1:20 PM EST Follow-Up [facility] 175 [facility] [address] [place] [address] Jeanne Dobson PA [address] [place] [address] Morbid obesity (HCC) (Primary Dx); BMI 40.0-44.9, adult (HCC) [Z68.41]; Encounter for tobacco use screening [Z01.89]; Screening for depression; Screening for substance abuse; Dietary counseling; Exercise counseling Social History Tobacco Use Types Packs/Day Years [...] on file documented as of this encounter Last Filed Vital Signs Vital Sign Reading Time Taken Comments Blood Pressure 134/87 08/28/2024 1:14 PM EST Pulse 85 08/28/2024 1:14 PM EST Temperature 36.4 ??C (97.5 ??F) 08/28/2024 1:14 PM ES T Respiratory Rate - - Oxygen Saturation 96% 08/28/2024 1:14 PM EST Inhaled Oxygen Concentration - - Weight 121 kg (266 lb 12.8 oz) 08/28/2024 1:14 P M EST Height 164.2 cm (5' 4.65 ) 08/28/2024 1:14 PM ES T Body Mass Index 44.89 08/28/2024 1:14 PM EST documented in this encounter Patient Instructions * Attachments The following attachments cannot be sent through Care Everywhere. * Heart Healthy Diet (Indian) documented in this encounter Progress Notes * MARI Rudolph - 08/28/2024 1:36 PM EST Images from the original note were not included. Patient ID: Yuval Faust is a 39 y.o. male. : 1985. . PCP: MARI Rudolph Assessment & Plan Problem List Morbid obesity (HCC) - Primary Overview Patient with alcohol use disorder and HTN, phentermine not recommended. Will increase to zepbound 5mg. Also recommend continued lifestyle changes including diet and exercise. Congratulated on his efforts! Other Visit Diagnoses BMI 40.0-44.9, adult (HCC) [Z68.41] Encounter for tobacco use screening [Z01.89] Screening for depression Screening for substance abuse Dietary counseling Exercise counseling Follow-up: Return in about 5 weeks (around 10/02/2024). Subjective Chief Complaint Patient presents with Medication Visit Flu Vaccine Pt denied He has been sober since 08/09/24. He has been eating much better, increasing his protein to around 200g and avoiding carbs. He started on zepbound 3wks ago and admits to decreased appetite otherwise noside effects. He is struggling with his pain at night since he has not been drinking. He is very restless at night. He is sleeping 4hrs at night but admits to more energy since quitting alcohol. He is happy to see he has lost 21lbs in 20days. He is feeling great. Review of Systems Eyes: Negative for blurred vision. Respiratory: Negative for shortness of breath. Cardiovascular: Negative for chest pain. Gastrointestinal: Negative for abdominal pain. Neurological: Negative for dizziness, headaches and weakness. Allergies as of 08/28/2024 - Reviewed 08/28/2024 Allergen Reaction Noted Banana Itching and Angioedema Aluminum Rash 05/13/2023 Banana extract Itching 11/09/2022 No known drug allergies Unknown Other Unknown 04/18/2019 Current Medications (Taking) as of 08/28/2024 albuterol (Ventolin HFA) 90 mcg inhaler Inhale 2 puffs (180 mcg total) by mouth every 4 hours as needed for wheezing or shortness of breath. Use with spacer. atorvastatin (LIPITOR) 10 mg tablet TAKE 1 TABLET(10 MG) BY MOUTH EVERY NIGHT budesonide-formoteroL (SYMBICORT) 160-4.5 mcg inhaler Inhale 2 puffs by mouth 2 times a day. Rinse mouth with water after use. Do not swallow. calcium carbonate (TUMS) 200 mg calcium (500 mg) chewable tablet Chew and swallow 2 tablets by mouth as needed for indigestion or heartburn. ibuprofen (MOTRIN) 800 mg tablet Take 1 tablet (800 mg total) by mouth every 8 hours as needed for pain. loratadine (CLARITIN) 10 mg tablet Take 10 mg by mouth every morning. losartan (COZAAR) 50 mg tablet Take 1 tablet (50 mg total) by mouth once a day. montelukast (SINGULAIR) 10 mg tablet Take 1 tablet (10 mg total) by mouth nightly. No results found for this or any previous visit (from the past week). Screenings PHQ-9 Assessment Little Interest or Pleasure in Doing Things: 0 Feeling Down, Depressed, or Hopeless: 0 Trouble Falling or Staying Asleep, or Sleeping too Much: 0 Feeling Tired or Having Little Energy: 0 Poor Appetite or Overeatin Feeling Bad About Yourself - or That You are a Failure or Have Let Yourself or Your Family Down: 0 Trouble Concentrating on Things, Such as Reading the Newspaper or Watching Television: 0 Moving or Speaking so Slowly That Other People Could Have Noticed, or the Opposite - Being so Fidgety or Restless That You Have Been Moving Around a lot More Than Usual: 0 Thoughts That You Would be Better off , or of Hurting Yourself in Some Way: 0 If you checked off any problems on the PHQ-9, how difficult have these problems made it for you to do your work, take care of things at home, or get along with other people?: Not difficult at all PHQ-9 Total Score (calculated): PHQ-9 Total Score: 0 (08/28/2024 1:17 PM) Depression screen: PHQ-2 0 (08/28/2024 1:17 PM) PHQ-9 0 (08/28/2024 1:17 PM) Interpretation: Based on today's screening test and additional history, I believe this patient doesnot meet criteria for depression. No further evaluation needed at this time. Plan: Screen again in 1 year. DEYVI-7 Total: DEYVI 7 Total Score: 0 (08/28/2024 1:18 PM) Interpretation: Based on today's screening test and additional history, I believe this patient doesnot meet criteria for anxiety. No further evaluation needed at this time Plan: Screen again in 1 year Alcohol/Substance Use Screening: Last 12 months: alcohol >4-5/day: Daily or Almost Daily (08/28/2024 1:17 PM) Last 12 months: use of drugs: Never (08/28/2024 1:17 PM) Last 12 months: misuse of prescription meds: Never (08/28/2024 1:17 PM) Assessment: Alcohol/Substance Use Assessment: High risk substance use (frequent use/high risk substances) Plan: Dicussed plan to reduce use. BP Readings from Last 3 Encounters: 08/28/24 134/87 07/25/24 138/76 07/19/24 (!) 176/142 Objective Vitals: 08/28/24 1314 BP: 134/87 BP Location: Right arm Patient Position: Sitting Pulse: 85 Temp: 36.4 ??C (97.5 ??F) TempSrc: Oral SpO2: 96% Weight: 121 kg (266 lb 12.8 oz) Height: 1.642 m (5' 4.65 ) Body mass index is 44.89 kg/m??. Wt Readings from Last 3 Encounters: 08/28/24 121 kg (266 lb 12.8 oz) 07/25/24 130.2 kg (287 lb) 07/19/24 132 kg (291 lb) Physical Exam Constitutional: Appearance: Normal appearance. HENT: Head: Normocephalic and atraumatic. Eyes: Conjunctiva/sclera: Conjunctivae normal. Cardiovascular: Rate and Rhythm: Normal rate. Pulmonary: Effort: Pulmonary effort is normal. Neurological: Mental Status: He is alert and oriented to person, place, and time. Mental status is at baseline. Psychiatric: Mood and Affect: Mood normal. Behavior: Behavior normal. documented in this encounter Plan of Treatment Upcoming Encounters Date Type Department Care Team (Late st Contact Info) Description 10/03/2024 3:00 PM EST Follow-Up [facility] 175 [facility] [address] [place] [address] Jeanne Dobson PA [address] [place] [address] documented as of this encounter Visit Diagnoses Diagnosis Morbid obesity (HCC)- Primary Morbid obesity BMI 40.0-44.9, adult (HCC) [Z68.41] Encounter for tobacco use screening [Z01.89] Screening for depression Screening for substance abuse Screening for unspecified condition Dietary counseling Dietary surveillance and counseling Exercise counseling documented in this encounter Care Teams Neurology Physician Assistant Relationship Specialty Start Date End Date Jeanne Dobson PA [address] [place] [address] PCP - General Physician Health Assessment And Treatment Teacher 03/09/22 documented as of this encounter
--- OUTSIDE RECORDS SUMMARY | 2024-09-15 10:48 | XMS_ITS | Encounter Summary ---
Author Organization [facility] Address [address] [place] [address] Care Team Providers Care Insulator Apprentice Name Role Phone Jeanne Dobson Primary Care Provider +1- [phone] Reason for Referral * MRI/CAT/PET Scan (Routine) - Pending Review Specialty Diagnoses / Procedures Referred By Fareed ramirez Referred To Contact Radiology Diagnoses Other intervertebral disc degeneration, lumbar region Radiculopathy, cervical region Procedures MRI Lumbar Spine WO Contrast Yuval Franco PA [address] [place] [address] Phone: tel: fax: Referral ID Status Reason Start Date Expiration Date V isits Requested Visits Authorized [id number] Pending Review 09/13/2024 03/15/2026 1 1 Encounter Details Date Type Department Care Team (Late st Contact Info) Description 09/13/2024 Orders Only [facility] MRI [facility] [address] [place] [address] Yuval Franco PA [address] [place] [phone] Other intervertebral disc degeneration, lumbar region; Radiculopathy, [...] Info) Description 10/03/2024 3:00 PM EST Follow-Up [address] [place] [address] Jeanne Dobson PA [address] [place] [address] documented as of this encounter Results * Due to [place] state law, this organization might not be sharing negative HIV tests. * MRI Lumbar Spine WO Contrast (09/13/2024 10:20 PM EST) Anatomical Region Laterality Modality Spine, L-spine Magnetic Resonan ce 09/14/2024 9:50 AM EST Impressions 09/14/2024 10:19 AM EST 1. ??Degenerative and postsurgical changes throughout the lumbar spine, as described above. 2. ??Disc protrusion at L3-L4 has mildly progressed since 2022, contributing to moderate spinal canal narrowing with moderate bilateral neural foraminal narrowing. If this radiology report contains a blank impression section, it is an incomplete radiology report. ??Please contact the interpreting radiologist or applicable radiology division as soon as possible to obtain the completed interpretation. ? Workstation ID: [id number] Narrative 09/14/2024 10:19 AM EST INDICATION: ?? M51.369 - I10 - Other intervertebral disc degeneration, lumbar region without mention of lumbar back pain or lower extremity pain M51.369 - I10 - Other intervertebral disc degeneration, lumbar region without mention of lumbar back pain or lower extremity pain TECHNIQUE: Multiplanar, multisequence MRI of the lumbar spine was performed ??without contrast using standard departmental protocol. COMPARISON: Lumbar spine MRI: 09/07/2022. FINDINGS: For the purposes of this dictation, the lowest complete intervertebral disc space is designated L5-S1. Prior multilevel posterior instrumented fusion with interbody spacers at L4-L5 and L5-S1. Hardware remains unchanged in position compared to the prior MRI. Metallic susceptibility artifact somewhat limits assessment of surrounding structures. Within these limitations, there are no hardware-related complications. There is intervertebral disc desiccation at L3-L4. No destructive osseous lesions. Vertebral body heights are preserved. Conus is normal in caliber and signal, terminating at the T12-L1 level. ??No canal collection or mass is identified. ??Normal distribution of the cauda equina nerve roots in the thecal sac. Midline scarring in the dorsal paraspinal soft tissues, related to prior surgery. No fluid collection is identified. Level by level analysis of the lumbar spine demonstrates the following: T12-L1 (sagittal images only): Tiny disc bulge. No spinal canal or neural foraminal narrowing. L1-L2: Tiny disc bulge. No spinal canal or neural foraminal narrowing. L2-L3: Tiny disc bulge. Bilateral facet arthropathy. No spinal canal or neural foraminal narrowing. L3-L4: Circumferential disc bulge, asymmetric to left, with superimposed central disc protrusion. Advanced bilateral facet arthropathy. Moderate spinal canal narrowing. Moderate bilateral neural foraminal narrowing. Findings have mildly progressed since the prior MRI from 2022. L4-L5: Postsurgical changes. No spinal canal narrowing. Mild bilateral neural foraminal narrowing. L5-S1: Postsurgical changes. Mild disc uncovering. Small central disc protrusion. No spinal canal narrowing. Mild bilateral neural foraminal narrowing. Resulting Agency Comment [id number] Procedure Note Pierce Grullon MD - 09/14/2024 INDICATION: M51.369 - I10 - Other intervertebral disc degeneration,lumbar region without mention of lumbar back pain or lower extremity painM51.369 - I10 - Other intervertebral disc degeneration, lumbar regionwithout mention of lumbar back pain or lower extremity pain TECHNIQUE: Multiplanar, multisequence MRI of the lumbar spine wasperformed without contrast using standard departmental protocol. COMPARISON: Lumbar spine MRI: 09/07/2022. FINDINGS: For the purposes of this dictation, the lowest complete intervertebraldisc space is designated L5-S1. Prior multilevel posterior instrumented fusion with interbody spacers atL4-L5 and L5-S1. Hardware remains unchanged in position compared to theprior MRI. Metallic susceptibility artifact somewhat limits assessment ofsurrounding structures. Within these limitations, there are nohardware-related complications. There is intervertebral disc desiccationat L3-L4. No destructive osseous lesions. Vertebral body heights arepreserved. Conus is normal in caliber and signal, terminating at the T12-L1 level.No canal collection or mass is identified. Normal distribution of thecauda equina nerve roots in the thecal sac. Midline scarring in the dorsalparaspinal soft tissues, related to prior surgery. No fluid collection isidentified. Level by level analysis of the lumbar spine demonstrates the following: T12-L1 (sagittal images only): Tiny disc bulge. No spinal canal or neuralforaminal narrowing. L1-L2: Tiny disc bulge. No spinal canal or neural foraminal narrowing. L2-L3: Tiny disc bulge. Bilateral facet arthropathy. No spinal canal orneural foraminal narrowing. L3-L4: Circumferential disc bulge, asymmetric to left, with superimposedcentral disc protrusion. Advanced bilateral facet arthropathy. Moderatespinal canal narrowing. Moderate bilateral neural foraminal narrowing.Findings have mildly progressed since the prior MRI from 2022. L4-L5: Postsurgical changes. No spinal canal narrowing. Mild bilateralneural foraminal narrowing. L5-S1: Postsurgical changes. Mild disc uncovering. Small central discprotrusion. No spinal canal narrowing. Mild bilateral neural foraminalnarrowing. IMPRESSION: 1. Degenerative and postsurgical changes throughout the lumbar spine, asdescribed above. 2. Disc protrusion at L3-L4 has mildly progressed since 2022,contributing to moderate spinal canal narrowing with moderate bilateralneural foraminal narrowing. If this radiology report contains a blank impression section, it is anincomplete radiology report. Please contact the interpreting radiologistor applicable radiology division as soon as possible to obtain thecompleted interpretation. Workstation ID: [id number] us Yuval GUERRA IMG MRI PROCEDURES Final R esult documented in this encounter Visit Diagnoses Diagnosis Other intervertebral disc degeneration, lumbar region Radiculopathy, cervical region Brachial neuritis or radiculitis nos documented in this encounter Care Teams Insulator Apprentice Relationship Specialty Start Date End Date Jeanne Dobson PA [address] [place] [id number] PCP - General Physician Bladder Trimmer 03/09/22 documented as of this encounter
--- OUTSIDE RECORDS SUMMARY | 2024-09-15 10:48 | XMS_ITS | Encounter Summary ---
Author Organization [facility] Address [address] [place] [address] Care Team Providers Care Human Factors Engineer Name Role Phone Jeanne Dobson Primary Care Provider +1- [phone] Reason for Referral * MRI/CAT/PET Scan (Routine) - Pending Review Specialty Diagnoses / Procedures Referred By Fareed ramirez Referred To Contact Radiology Diagnoses Other intervertebral disc degeneration, lumbar region Radiculopathy, cervical region Procedures MRI Lumbar Spine WO Contrast Yuval Franco PA [address] [place] [address] Phone: tel: fax: Referral ID Status Reason Start Date Expiration Date V isits Requested Visits Authorized [id number] Pending Review 09/04/2024 03/06/2026 1 1 Encounter Details Date Type Department Care Team (Late st Contact Info) Description 09/12/2024 Orders Only [facility] [address] [address] Yuval Franco PA [address] [place] [id number] Other intervertebral disc degeneration, lumbar region; Radiculopathy, [...] Info) Description 10/03/2024 3:00 PM EST Follow-Up [facility] 175 [facility] [address] [place] [address] Jeanne Dobson PA [address] [place] [address] Scheduled Orders Name Type Priority Associated Diagnoses Orde r Schedule MRI Lumbar Spine WO Contrast Imaging [facility] Routine Other intervertebral disc degeneration, lumbar region Radiculopathy, cervical region 1 Occurrences starting 09/04/2024 until 10/05/2025 documented as of this encounter Visit Diagnoses Diagnosis Other intervertebral disc degeneration, lumbar region Radiculopathy, cervical region Brachial neuritis or radiculitis nos documented in this encounter Care Teams Human Factors Engineer Relationship Specialty Start Date End Date Jeanne Dobson PA [address] [place] [address] PCP - General Physician Engine Wiper 03/09/22 documented as of this encounter
--- OUTSIDE RECORDS SUMMARY | 2024-09-15 10:49 | XMS_ITS | Data Portability ---
Author Organization [facility] [place] [address] [place] [address] Care Team Providers Care Sexual Assault Counselor Name Role Phone HELENE LANGFORD Primary Care Provider [phone] HELENE LANGFORD Referring Provider [phone] SAM JOHNSON Primary Care Provider Assessment No assessment recorded. Plan of Treatment Reminders Order Date Submit Date Provider Last Modified By Organization Details Last Modified Time Details Appointments None record ed. Lab None record ed. Referral None record ed. Procedures None record ed. Surgeries None record ed. Imaging None record ed. Medication Orders None record ed. Patient TargetsNo targets recorded. Patient InstructionsNo instructions recorded. Reason for Referral None Reported. Results Created Date Observation Date Name Description Value Unit Range Abnormal Flag Note LastModifiedBy Organization Detail LastModifiedTime 09/07/19 20 09/07/2019 surgi chica patho logy study surgical ----- ----- ----- ----- ----- ----- ----- ----- ----- ----- ----- ----- ----- ----- ----- ----- ----- ----- -- PATIE NT: ELSIE KEEN 840 LOC: [facility] [place] U #: [id number] AGE/S X: 34/M ROOM: RE09/[address]: Robe Alex DO : 06/27 BED: DIS: STATU S: DEP REF PROCE DURE/ OPERA TION PERFO RMED: EXCIS ION SPEC #: [id number] RECD: 09/08-0 911 STATU S: RUBIA PONCE #: [id number] ALBERTA: 09/07-[address]: Robe Alex DO ENTER ED: 09/08-0 913 SP TYPE: Surgi chica OTHR DR: Helene Langford MD TISSU E:Ski n ----- ----- ----- ----- ----- ----- ----- ----- ----- ----- ----- ----- ----- ----- ----- ----- ----- ----- -- Final Diagn osis A. SKIN, LEFT SCALP , EXCIS ION: - Epide rmal inclu kelsi cyst. B. SKIN, RIGHT SCALP , EXCIS ION: - Epide rmal inclu kelsi cyst. C. SKIN LESIO N, RIGHT NECK, EXCIS ION: - [facility] l melan ocyti c nevus . Gross Exami natio n A. Recei les in forma simi label ed [facility] Front e, 06/27 and left scalp , cyst . It consi sts of an a well- circu mscri bed cysti c lesio n measu ring 0.7 x 0.4 x 0.4 cm. Bisec ana lilia, AP, one casse tte. B. Recei les in forma simi label ed [facility] Front e, 06/27 and rig t scalp , cyst . It consi sts of a well- circu mscri bed cysti c lesio n measu ring 1 x 0.5 x 0.5 cm. Also found in the conta iner is a fragm ent of ovalle/g ray, soft tissu e measu ring 1 x 0.2 x 0.3 cm. RS, one casse tte. C. Recei les in forma simi label ed [facility], 06/27 and righ t neck, skin lesio n . It consi sts of a minut e fragm ent of ovalle/w jaqueline skin measu ring 0.2 x 0.2 x 0.2 cm. The resec timirta chuy ns are inked blue. AP, one paigee tte. (VZ) 09-08 WALTER Maria MD 09/11 1225 ----- ----- ----- ----- ----- ----- ----- ----- ----- ----- ----- ----- ----- ----- ----- ----- ----- ----- -- Not Available [facility] [address] [place], [address], 09/11/2019 12:25:56 Result Notes None recorded. Problems No Known Problems Procedures Surgical History Date Name Laterality Status Provider Name and Address Organization Details Recorded Time 0 excision of cyst completed Denise Blas [facility] 09/20/2019 15:18:59 Imaging Results None recorded. Procedure Notes None recorded. Medical Equipment None Reported. Allergies Allergen ID Allergen Name Allergen Category Reaction Reaction Severity Criticality Documentation Date Start Date Code Code System Note Provider Name and Address Organization Details Recorded Time 344562 banana extract food,medi cation itching mild Not available 08/14/2019 25[facility] 0 09:32:35 911201 aluminum environme nt,medica tion rash moderate Not available 08/14/2019 20638 [facility] 0 09:33:16 Medications Name Sig Start Date Stop Date Status Note LastModified by Organization Details LastModified Time topiramate 100 mg tablet 08/14 completed Not Available Not Available Not Available topiramate 50 mg tablet 08/14 completed Not Available Not Available Not Available loratadine active Not Available Not Av ailable Not Available Singulair active Not Available Not Casie ilable Not Available albuterol sulf 90 mcg/actuati on breath activated powder inhaler,sen sor Inhale 2 puffs every 4 hours by inhalatio n route. active Not Available Not Available No t Available Vitals Date Recorded Body weight Body height Body mass index (BMI) Heart rate Systolic blood pressure Diastolic blood pressure Provider Name and Address Organization Details Last Updated DateTime 0 105799. 83 g 162.56 cm 40.7 kg/m2 87 /min 132 mm[Hg] 84 mm[Hg] Hanna Mosqueda [facility] 0 09:31:49 Date Recorded Body height Body mass index (BMI) Body weight Provider Name and Address Organization Details Last Updated DateTime 09/22/2019 162.56 cm 40.9 kg/m2 461538.42 g Olya Mohanasseur [facility] 09/22/2019 13:00:46 Social History None recorded. Functional Status None recorded. Mental Status None recorded. Family History Nothing Reported. Medical History No medical history recorded. Past Encounters Encounter ID Performer Location Encounter Start Date Encounter Closed Date Diagnosis/Indication Diagnosis SNOMED-CT Code Diagnosis ICD10 Code Diagnosis Note [id number] Denise Lobato NP [facility] [address] [place] [address] 05/06/2018 09:44:02 05/06/2018 11:24:25 [id number] Silvio carrasquillo DO [facility] [address],[place] [address] 08/14/2019 09:00:48 08/14/2019 09:59:25 Cyst of scalp 534639953 L72.9 book for local excision Consent obtained [id number] Silvio carrasquillo DO [facility] [address],[place] [address] 09/22/2019 12:57:49 09/22/2019 13:04:10 Postoperative visit 502464001 Z09 OK to D/C and follow up prn Health Concerns Section Related Observation LastModified by Organization Detai ls LastModified Time None Recorded Concern Status LastModified by Organization Details LastModified Time None Recorded Advance Directives Directive None Recorded Payers Encounter Date Sequence Insurance Name Policy Number Policy Drake Covered Member ID Drake Member ID Guarantor Name 08/14/2019 1 [employer] [facility] [id number] Yuval Faust [id number] 1 Yuval Faust 08/14/2019 1 [place] Yuval Faust [id number] Yuval Faust 09/22/2019 1 [employer] [facility] [id number] Yuval Faust [id number] 1 Yuval Faust 09/22/2019 1 [place] Yuval Faust [id number] Yuval Faust Notes Date Note Type Note Provider Name and Address Organization Details Recorded Time 08/14/2019 text/html 34 yo M with history o2 scalp cysts 3x3 and 1x1 cysts. No erythema or induration. Denies any pain, but notes discomfort due to location. Silvio Eason DO [address] [place] [address] NAGI Schaefer, [address], [facility] 08/18/2019 13:02:37 09/22/2019 text/html 2 week follow-up from surgery fro scalp cysts removal. No complaints. Incisions healing well. Path cysts. Silvio Eason DO [address] [place] [address] NAGI Schaefer, [address], [facility] 09/22/2019 13:15:27
--- OUTSIDE RECORDS SUMMARY | 2024-09-15 10:49 | XMS_ITS | Clinical Summary ---
Author Organization [facility] Address [address] [place] [address] Care Team Providers Care Ground Intelligence Officer Name Role Phone Jeanne Dobson Primary Care Provider +1- [phone] Allergies Active Allergy Reactions Criticality Noted Date Comments Aluminum Rash Medium 05/13/2023 ALUMINUM CANS Banana Itching,Angioedema High PER PATIENT Banana Extract Itching 11/09/2022 No Known Drug Allergies Unknown Other Unknown 04/18/2019 Medications * This document contains information received from the source organization and may not represent a complete record from that organization. loratadine (CLARITIN) 10 mg tablet Take 10 mg by mouth every morning. Active calcium carbonate (TUMS) 200 mg calcium (500 mg) chewable tablet Chew and swallow 2 tablets by mouth as needed for indigestion or heartburn. Active ibuprofen (MOTRIN) 800 mg tabletIndications :Spondylolysis Take 1 tablet (800 mg total) by mouth every 8 hours as needed for pain. 90 tablet 1 024 Active montelukast (SINGULAIR) 10 mg tabletIndications :Moderate persistent asthma, unspecified whether complicated Take 1 tablet (10 mg total) by mouth nightly. 90 tablet 1 024 Active losartan (COZAAR) 50 mg tabletIndications :Essential hypertension Take 1 tablet (50 mg total) by mouth once a day. 90 tablet 024 Active budesonide-formot Tho (SYMBICORT) 160-4.5 mcg inhalerIndication s:Moderate persistent asthma without complication Inhale 2 puffs by mouth 2 times a day. Rinse mouth with water after use. Do not swallow. 10.2 g 5 024 Active albuterol (Ventolin HFA) 90 mcg inhalerIndication s:Moderate persistent asthma, unspecified whether complicated Inhale 2 puffs (180 mcg total) by mouth every 4 hours as needed for wheezing or shortness of breath. Use with spacer. 18 g 3 024 Active atorvastatin (LIPITOR) 10 mg tabletIndications :Hyperlipidemia, unspecified hyperlipidemia type TAKE 1 TABLET(10 MG) BY MOUTH EVERY NIGHT 30 tablet 2 025 Active tirzepatide, weight loss, (Zepbound) 5 mg/0.5 mL pen injector pen injector Inject 0.5 mL (5 mg total) under the skin once a week. 2 mL 1 025 Active LORazepam (ATIVAN) 0.5 mg tablet One po 1hr prior to procedure, may repeat x1 2 tablet 025 Active atorvastatin (LIPITOR) 10 mg tabletIndications :Hyperlipidemia, unspecified hyperlipidemia type Take 1 tablet (10 mg total) by mouth nightly. 30 tablet 024 2024 Discontinued tirzepatide, weight loss, (Zepbound) 2.5 mg/0.5 mL pen injector pen injectorIndicatio ns:Morbid obesity (HCC) Inject 0.5 mL (2.5 mg total) under the skin once a week. 2 mL 1 024 2024 Discontinued Active Problems Problem Noted Date Diagnosed Date Hyperlipidemia 01/12/2024 Assessment & Plan (01/12/2024 6:48 PM EDT): Check fasting labs at earliest convenience. Continue lipitor and lifestyle changes. Morbid obesity 10/13/2023 Overview (08/28/2024): Patient with alcohol use disorder and HTN, phentermine not recommended. Will increase to zepbound 5mg. Also recommend continued lifestyle changes including diet and exercise. Congratulated on his efforts! Assessment & Plan (07/19/2024 8:42 AM EST): Discuss GLP1s at OV next week. Assessment & Plan (01/12/2024 6:47 PM EDT): Continue with weight loss efforts. Use food for fuel, not comfort. Basal cell carcinoma (BCC) o f skin of left upper extremity including shoulder 05/26/2023 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 Trigger middle finger of right hand 09/12/2020 Left arm numbness 06/08/2017 Assessment & Plan (06/09/2017 7:19 AM EDT): Patient complains of intermittent shoulder, arm, leg numbness that is more prominent on L vs R side. No recent injury, trauma. 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 No clear triggers. -MRI brain -MRI cervical spine Assessment & Plan (06/08/2017 11:26 AM EDT): Admit to inpatient for further workup concerning stroke vs complex migraine vs MS MRI brain and C spine with and without contrast Cervicogenic headache 06/08/2017 Assessment & Plan (06/08/2017 3:02 PM EDT): Physical therapy and massage Cubital tunnel syndrome 03/27/2016 Bilateral carpal tunnel syndrome 01/28/2016 Overview (05/11/2017): Right hand pain mostly around the right thumb which returned after the carpal tunnel surgery last year. Assessment & Plan (06/08/2017 3:03 PM EDT): Recommend using splint Physical therapy Assessment & Plan (05/11/2017 10:44 AM EDT): Hard splint for right hand during sleep for 6-8 weeks and soft splint during awake time. Probable Post-traumatic stress disorder 07/07/20 12 Essential hypertension 2012 3 Assessment & Plan (07/19/2024 8:49 AM EST): Distracted by the of his father's which he found out while in waiting room. Did well on losartan 25mg. Will increased to 50mg based on current BP and recent weight gain, stress, pain level. Follow up 1wk. Go to ER with GARRIDO, CP, shortness of breath, dizziness, blurry vision, confusion, weakness. Assessment & Plan (01/12/2024 6:36 PM EDT): Stable on losartan Assessment & Plan (11/10/2023 9:27 AM EDT): Follow up 2-3mo for HTN. Continue losartan. Assessment & Plan (10/13/2023 8:35 AM EST): Start losartan. Follow up 4wks. Assessment & Plan (10/08/2023 4:47 PM EST): BP elevated today. Reviewed past values. Patient states PCP aware. Likely would benefit from anti-hypertensive medication. Will defer to PCP during follow up appointment. Asymptomatic at present time. Hypertrophy of nasal turbinates 05/13/2012 Lower back pain 05/12/2012 Overview (05/11/2017): Patient has been having increasing low back pain. Hasn't been able to go physical therapy due to scheduling issues. He has history of low back surgery. Assessment & Plan (05/11/2017 1:30 PM EDT): Physical therapy Massage Stretching exercises Ibuprofen/Tylenol as needed Asthma 04/05/2012 Assessment & Plan (01/12/2024 6:36 PM EDT): Continue symbicort. Claustrophobia 04/05/2012 Possible Tics of organic origin 04/05/2012 Obstructive sleep apnea 04/05/2012 Attention-deficit hyperactivity disorder 012 Allergic rhinitis 09/08/2011 11/09/2022 Resolved Problems Problem Noted Date Diagnosed Date Resolved Date Alcohol use disorder, moderate, dependence 01/12/2024 01/12/2024 Seizure disorder 05/23/2014 10/13/2023 Overview (05/11/2017): No breakthrough seizures or anything concerning for seizure like activities. Patient complains of some word finding difficulties. Assessment & Plan (07/12/2019 8:29 AM EST): Patient is a 34 year old man with history of epilepsy with semiology of staring. He has been off Topiramate since May 2017 and was seizure free until an episode of loss of consciousness at work 04/04/2019. This episode happened under the circumstance of sleep deprivation and drinking excessive energy drinks. He has been free of any types of seizure like activities since and he continues to be off medication. 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 Terri suggested the patient to check with [employer] leaders to see what type of accomodation they can make for him. After our conversation with Terri was completed, I also extensively discussed with the patient and his regarding various other vocational options. Seizure and fall precaution No driving until seizure free for 6 months in [place]. Please check with local DMV if need to drive elsewhere Please avoid sleep deprivation, excessive caffeine/energy drink, dehydration, prolonged fasting and other potential seizure triggering factors. Follow up in 3 months Assessment & Plan (06/08/2017 11:25 AM EDT): Patient has been off Topiramate since the last visit and he is currently complaining of memory issues. Differential diagnosis includes subclinical seizures vs other causes of memory issues such as mood disorder. In addition, the fact that he started having left sided numbness, concerns me of multiple sclerosis. Recommend urgent Epilepsy Monitoring Unit admission today for continuous video EEG and MRI brain and C spine with and without contrast. Spoke to Dr. Scott, EMU attending on service regarding this admission. Assessment & Plan (05/11/2017 10:43 AM EDT): Wean off Topiramate by 50 mg weekly. Seizure and fall precaution Call me if there are any concerns for recurrent seizures while weaning or after completing the weaning. Encounters Date Type Department Care Team Description 09/13/2024 Orders Only [facility] [address] [address] Yuval Franco, MARI Other intervertebral disc degeneration, lumbar region; Radiculopathy, cervical region 09/13/2024 Orders Only [facility] [address] [place] [address] Yuval Fracno PA Other intervertebral disc degeneration, lumbar region; Radiculopathy, cervical region 09/13/2024 Orders Only [facility] [address] [address] Yuval Franco, MARI Other intervertebral disc degeneration, lumbar region; Radiculopathy, cervical region 09/12/2024 Orders Only [facility] [address] [address] Yuval Franco PA Other intervertebral disc degeneration, lumbar region; Radiculopathy, cervical region 09/12/2024 Orders Only [facility] [address] [address] Yuval Franco, MARI Other intervertebral disc degeneration, lumbar region; Radiculopathy, cervical region 09/07/2024 Orders Only [facility] [address] [address] Jeanne Dobson PA 09/05/2024 Telephone [facility] [address] [address] Jeanne Dobson PA [facility] Medication Refill 08/30/2024 Telephone [facility] [address] [address] Jeanne Dobson PA Medication PA 08/28/2024 1:20 PM EST Follow-Up [facility] [address] [address] Jeanne Dobson PA Morbid obesity (HCC) (Primary Dx); BMI 40.0-44.9, adult (HCC) [Z68.41]; Encounter for tobacco use screening [Z01.89]; Screening for depression; Screening for substance abuse; Dietary counseling; Exercise counseling 08/22/2024 Refill [facility] [address] [address] Jeanne Dobson PA Hyperlipidemia, unspecified hyperlipidemia type 08/07/2024 myChart Message [facility] [address] [address] Elizabeth Biggs RNgluing pressman- Zepbound 08/07/2024 Telephone [facility] [address] [address] Jeanne Dobson PA 07/26/2024 Orders Only [facility] [address] [address] Yuval Franco PA 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); Other intervertebral disc degeneration, lumbar region 07/26/2024 Orders Only [facility] [address] [address] Yuval Franco PA Other intervertebral disc degeneration, lumbar region 07/26/2024 Orders Only [facility] [address] [address] Yuval Franco PA Other intervertebral disc degeneration, lumbar region 07/26/2024 Orders Only [facility] [address] [address] Yuval Franco PA Radiculopathy, cervical region 07/26/2024 Orders Only [facility] [address] [address] Yuval Franco PA Other intervertebral disc degeneration, lumbar region 07/26/2024 Orders Only [facility] [address] [address] Yuval Franco PA Other intervertebral disc degeneration, lumbar region 07/26/2024 Orders Only [facility] [address] [address] Yuval Franco PA Radiculopathy, cervical region 07/25/2024 3:20 PM EST Follow-Up [facility] [address] [address] Jeanne Dobson PA Morbid obesity (HCC) (Primary Dx); Essential hypertension; Need for pneumococcal vaccination; Encounter for tobacco use screening [Z01.89] 07/25/2024 Telephone [facility] [address] [place] [address] Jeanne Dobson PA [facility] Other 07/19/2024 8:20 AM EST Office Visit [facility] [address] [place] [address] Jeanne Dobson PA Morbid obesity (HCC) (Primary Dx); BMI 45.0-49.9, adult (HCC) [Z68.42]; Encounter for tobacco use screening [Z01.89]; Essential hypertension; Hyperlipidemia, unspecified hyperlipidemia type; Moderate persistent asthma without complication; Moderate persistent asthma, unspecified whether complicated [address] [facility] [address] [place] [id number] Supervisor Plastering: Jluis Combs [place] OTHER (Called to see if patient is coming in for his follow-up appointment. LVM with office phone numbers so patient can reschedule his appointment.) from Last 3 Months Immunizations Name Administration Dates Next Due Covid-19 Monovalent Vaccine, Moderna, mRNA, PF 07/31/2021,11/11/2020,10/14/2020 Pneumococcal conjugate PCV20 ,polysaccharide HQN144 conjugate, adjuvant, PF (Prevnar 20) 07/25/2024 Tetanus Toxoid, Reduced Diph theria Toxoid, and Acellular Pertussis Vaccine, Adsorbed 05/19/2023,09/15/2010 Family History Medical History Relation Name Comments Other Father Family history of Emphysema/COPD /Family History of type C viral hepatitis Other Mother Family history of No pertinent family history Other Paternal Grandfather Family History of lung cancer Relation Name Status Comments Father Mother Paternal Grandfather Social History Tobacco Use Types Packs/Day Years Used Date Smoking Tobacco: Never Smokeless Tobacco: Never Tobacco Cessation:Counseling Given: Not Answered Comments:: Alcohol Use Standard Drinks/Week Comments Not [...] 08/28/2024 1:14 PM ES T Respiratory Rate 20 05/20/2023 1:10 PM EDT Oxygen Saturation 96% 08/28/2024 1:14 PM EST Inhaled Oxygen Concentration - - Weight 121 kg (266 lb 12.8 oz) 08/28/2024 1:14 P M EST Height 164.2 cm (5' 4.65 ) 08/28/2024 1:14 PM ES T Body Mass Index 44.89 08/28/2024 1:14 PM EST Plan of Treatment Upcoming Encounters Date Type Department Care Team (Late st Contact Info) Description 10/03/2024 3:00 PM EST Follow-Up [facility] 175 [facility] [address] [place], [place] [id number] Jeanne Dobson PA [address] [place] [address] Health Maintenance Due Date Last Done Comments COVID-19 Vaccine (2023-2 5 season) 2024 07/31/2021, 11/11/2020, 10/14/2020 Influenza Vaccine (#1) 2024 Basic Metabolic Panel 05/19/2024 05/19/2023 , 06/08/2017, 04/23/2015, Additional history exists Depression Screening and Follow-Up 08/28/2025 08/28/2024, 08/28/2024 DTaP,Tdap,and Td Vaccines (3 - Td or Tdap) 05/19/2033 05/19/2023, 09/15/2010 RSV Vaccine (60+ years old a nd patients) (1 - 1-dose 75+ series) 2060 HIV Screening Completed 05/19/2023 Hepatitis C Screening Completed 05/19/2023 Pneumococcal Vaccine: Pediat theron (0-5 Years) and At-Risk Patients (6-64 Years) Completed 07/25/2024 Alcohol/Substance Use Screening Completed Oral Health Screening Completed 08/28/2024 Hepatitis B Vaccines Discontinued Varicella Vaccines Discontinued Procedures * Due to [place] DDRdrive law, this organization might not be sharing negative HIV tests. Procedure Name Priority Date/Time Associated Diagnosis Comments MRI LUMBAR SPINE WO CONTRAST Routine 09/13/2024 10:20 PM EST Other intervertebral disc degeneration, lumbar region Radiculopathy, cervical region HEPATITIS C ANTIBODY W/REFLEX TO HCV RNA, QUANTITATIVE PCR Routine 05/19/2023 10:31 AM EDT Essential (primary) hypertension COMPREHENSIVE METABOLIC PANEL Routine 05/19/2023 10:31 AM EDT Essential (primary) hypertension from Last 3 Months or Most Recently Relevant to Health Maintenance Results * Due to [place] DDRdrive law, this organization might not be sharing [...] obtain the completed interpretation. ? Workstation ID: [id number] Narrative 09/14/2024 10:19 AM EST INDICATION: ?? [...] bilateral neural foraminal narrowing. Resulting Agency Comment [id number] Procedure Note Pierce Grullon MD - 09/14/2024 [...] possible to obtain thecompleted interpretation. Workstation ID: [id number] Yuval [facility]RA [facility] MRI PROCEDURES Final R esult * Hepatitis C Antibody w/Reflex to HCV RNA, Quantitative PCR (05/19/2023 10:31 AM EDT) Hepatitis C Antibody NON-REACT SVETLANA NON-REACT SVETLANA 05/20/2023 7:25 AM EDT [facility] Comment: HCV antibody was non-reactive. There is no laboratory evidence of HCV infection. In most cases, no further action is required. However, if recent HCV exposure is suspected, a test for HCV RNA (test code 20201) is suggested. For additional information please refer to http://education.[facility]/faq/IEB91a6 (This link is being provided for informational/ educational purposes only.) Blood Structure of peripheral vein / Unknown 05/19/2023 10:31 AM EDT 05/19/2023 11:20 PM EDT Narrative [facility] - 05/20/2023 7:28 AM EDT FASTING:NO Jeanne GUERRA LAB BLOOD ORDERABLES Final Result [facility] [address] [facility] 3rd Floor, [place] [address], [employer] [facility] [address] [place] [address] * Comprehensive Metabolic Panel (05/19/2023 10:31 AM EDT) Glucose 93 65 - 139 mg/dL 05/20/2023 2:36 AM EDT [facility] Comment: ? Non-fasting reference interval BUN 12 7 - 25 mg/dL 05/20/2023 2:36 AM EDT [facility] Creatinine 0.89 0.60 - 1.26 mg/dL 05/20/2023 2:36 AM EDT [facility] eGFR 113 > OR = 60 mL/min/1. 73m2 05/20/2023 2:36 AM [facility] Bun/Creatinine Ratio SEE NOTE: 6 - 22 (calc) 05/20/2023 2:36 AM [facility] Comment: ?? Not Reported: BUN and Creatinine are within ?? reference range. ? Sodium 137 135 - 146 mmol/L 05/20/2023 2:36 AM [facility] Potassium 4.5 3.5 - 5.3 mmol/L 05/20/2023 2:36 AM [facility] Chloride 101 98 - 110 mmol/L 05/20/2023 2:36 AM [facility] Carbon Dioxide 27 20 - 32 mmol/L 05/20/2023 2:36 AM [facility] Calcium 9.6 8.6 - 10.3 mg/dL 05/20/2023 2:36 AM [facility] Protein, Total 6.9 6.1 - 8.1 g/dL 05/20/2023 2:36 AM [employer] [facility] Albumin 4.4 3.6 - 5.1 g/dL 05/20/2023 2:36 AM [employer] [facility] Globulin 2.5 1.9 - 3.7 g/dL (calc) 05/20/2023 2:36 AM [employer] [facility] Albumin/Globuli n Ratio 1.8 1.0 - 2.5 (calc) 05/20/2023 2:36 AM [employer] [facility] Bilirubin, Total 0.5 0.2 - 1.2 mg/dL 05/20/2023 2:36 AM [employer] [facility] Alkaline Phosphatase 57 36 - 130 U/L 05/20/2023 2:36 AM [employer] [facility] AST 19 10 - 40 U/L 05/20/2023 2:36 AM [employer] [facility] ALT 29 9 - 46 U/L 05/20/2023 2:36 AM [facility] Blood Structure of peripheral vein / Unknown 05/19/2023 10:31 AM EDT 05/19/2023 11:02 PM EDT Narrative [facility] - 05/20/2023 7:28 AM EDT FASTING:NO us Jeanne GUERRA LAB BLOOD ORDERABLES Final Result [facility] [address] [facility] 3rd Floor, [place] [address], [place] [phone] [facility] [address] [place] [address] from Last 3 Months or Most Recently Relevant to Health Maintenance Insurance [facility] Advance Directives Documents on File Type Date Recorded Patient Nail Professional Expl anation Advance Directive 01/16/2013 12:00 AM Adva nce Care Directives Advance Directive 01/12/2013 12:00 AM sf Me dical Dec Making (Adv.Dir) * Full Code (Latest Code Status on File) Date Activated Date Inactivated Comments 09/08/2017 8:04 AM 09/08/2017 1:14 PM * Full Code Date Activated Date Inactivated Comments 06/08/2017 3:51 PM 06/11/2017 2:33 PM * Full Code Date Activated Date Inactivated Comments 06/08/2017 3:12 PM 06/08/2017 3:51 PM Care Teams Ground Intelligence Officer Relationship Specialty Start Date End Date Jeanne Dobson PA [address] [place] [id number] PCP - General Physician Volunteer Services Specialist 03/09/22
--- OUTSIDE RECORDS SUMMARY | 2024-09-15 10:49 | XMS_ITS | Encounter Summary ---
Author Organization [facility] Address [address] [place] [address] Care Team Providers Care Marketing Database Analyst Name Role Phone Jeanne Dobson Primary Care Provider +1- [phone] Reason for Visit * Reason Onset Date Comments [facility] Other 07/25/2024 Encounter Details Date Type Department Care Team (Late st Contact Info) Description 07/25/2024 Telephone [facility] 175 [facility] 175 [place] [address] Jeanne Dobson PA [address] [place] [address] [facility] Other Social History Tobacco Use Types Packs/Day Years [...] encounter Miscellaneous Notes * Telephone Encounter - Yann Rios - 07/25/2024 1:20 PM EST Mary calling from [facility] neurosurgery. The patients insurance is requesting notes on patients physical therapy visits to approve the neuro referral. Mary would like to have those Ov dates and notes faxed to them if possible, to fax#[phone]. documented in this encounter Plan of Treatment Upcoming Encounters Date Type Department Care Team (Late st Contact Info) Description 10/03/2024 3:00 PM EST Follow-Up [facility] 175 [facility] 175 [place] [address] Jeanne Dobson PA [address] [place] [address] documented as of this encounter Visit Diagnoses Not on filedocumented in this encounter Care Teams Marketing Database Analyst Relationship Specialty Start Date End Date Jeanne Dobson PA 175 [facility] [place] [address] PCP - General Physician Material Controller 03/09/22 documented as of this encounter
--- OUTSIDE RECORDS SUMMARY | 2024-09-15 10:49 | XMS_ITS | Encounter Summary ---
Author Organization [facility] Address [address] [place] [address] Care Team Providers Care Chemical Dependency Nurse Name Role Phone Jeanne Dobson Primary Care Provider +1- [phone] Encounter Details Date Type Department Care Team (Late st Contact Info) Description 08/07/2024 Telephone [facility] 175 [facility] 175 [place] [address] Jeanne Dobson PA [address] [place] [address] Social History Tobacco Use Types Packs/Day Years [...] encounter Miscellaneous Notes * Telephone Encounter - Edgardo Mosqueda - 08/21/2024 10:32 AM EST Pt received medication 2 weeks ago and using without issue. Pt will follow up with PCP during 08/28appt * Telephone Encounter - Duyen Hackett MA - 08/10/2024 1:57 PM EST Patient notified of approval, he is going to call the pharmacy as they needed to order the medication. Patient was also told that he needs appointment with a Nurse to go over how to use the medication. Advised I would have someone from that department reach out to the patient. * Telephone Encounter - Duyen Hackett MA - 08/10/2024 1:55 PM EST PA Case: [id number], Status: Approved, Coverage Starts on: 08/09/2024, Coverage Ends on: 02/06/2025 * Telephone Encounter - Duyen Hackett MA - 08/10/2024 11:05 AM EST PA completed on Cover My Meds. (Ge: [id number]) * Telephone Encounter - Sherry Tom RN - 08/08/2024 1:14 PM EST Please complete PA for zepbound * Telephone Encounter - Elizabeth Biggs RN - 08/07/2024 2:44 PM EST There has been no documentation listed on PA. Pharmacy never stated this needed to be completed. One can be initiated catherine. * Telephone Encounter - Cara Galeano - 08/07/2024 2:17 PM EST Patient walked in inquiring about the Prior Authorization for his medication Tirepatide (Zepbound) he still waiting for it and asking or a call back from PCP or Nurse . documented in this encounter Plan of Treatment Upcoming Encounters Date Type Department Care Team (Late st Contact Info) Description 10/03/2024 3:00 PM EST Follow-Up [address] [place] [address] Jeanne Dobson PA [address] [place] [address] documented as of this encounter Visit Diagnoses Not on filedocumented in this encounter Care Teams Chemical Dependency Nurse Relationship Specialty Start Date End Date Jeanne Dobson PA [address] [place] [address] PCP - General Physician Custodial Engineer 03/09/22 documented as of this encounter
--- OUTSIDE RECORDS SUMMARY | 2024-09-15 10:49 | XMS_ITS | Referral Summary ---
Author Organization [facility] Address [address] [place] [address] Care Team Providers Care Improvement Engineer Name Role Phone Jeanne Dobson Primary Care Provider +1- [phone] Encounters Date Type Department Care Team Description 09/13/2024 Orders Only [facility] [address] [address] Yuval Franco PA Other intervertebral disc degeneration, lumbar region; Radiculopathy, cervical region 09/13/2024 Orders Only [facility] [address] [address] Yuval Franco PA Other intervertebral disc degeneration, lumbar region; Radiculopathy, cervical region 09/13/2024 Orders Only [facility] [address] [address] Yuval Franco PA Other intervertebral disc degeneration, lumbar region; Radiculopathy, cervical region 09/12/2024 Orders Only [facility] [address] [address] Yuval Franco PA Other intervertebral disc degeneration, lumbar region; Radiculopathy, cervical region 09/12/2024 Orders Only [facility] [address] [address] Yuval Franco PA Other intervertebral disc degeneration, lumbar region; Radiculopathy, cervical region 09/07/2024 Orders Only [address] [address] Jeanne Dobson PA 09/05/2024 Telephone [facility] [address] [address] Jeanne Dobson PA CHC Medication Refill 08/30/2024 Telephone [facility] [address] [address] Jeanne Dobson PA Medication PA 08/28/2024 1:20 PM EST Follow-Up [facility] [address] [address] Jeanne Dobson PA Morbid obesity (HCC) (Primary Dx); BMI 40.0-44.9, adult (HCC) [Z68.41]; Encounter for tobacco use screening [Z01.89]; Screening for depression; Screening for substance abuse; Dietary counseling; Exercise counseling 08/22/2024 Refill [facility] [address] [address] Jeanne Dobson PA Hyperlipidemia, unspecified hyperlipidemia type 08/07/2024 myChart Message [facility] [address] [address] Elizabeth Biggs 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- Zepbound 08/07/[address] [address] Jeanne Dobson PA 07/26/2024 Orders Only [facility] [address] [address] Yuval Franco, PA 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); Other intervertebral disc degeneration, lumbar region 07/26/2024 Orders Only [facility] [address] [address] Yuval Franco, PA Other intervertebral disc degeneration, lumbar region 07/26/2024 Orders Only [facility] [address] [address] Yuval Franco PA Other intervertebral disc degeneration, lumbar region 07/26/2024 Orders Only [facility] [address] [address] Yuval Franco PA Radiculopathy, cervical region 07/26/2024 Orders Only [facility] [address] [address] Yuval Franco PA Other intervertebral disc degeneration, lumbar region 07/26/2024 Orders Only [facility] [address] [address] Yuval Franco PA Other intervertebral disc degeneration, lumbar region 07/26/2024 Orders Only [facility] [address] [address] Yuval Franco PA Radiculopathy, cervical region 07/25/2024 Telephone [facility] [address] [place] [address] Jeanne Dobson PA CHC Other 07/25/2024 3:20 PM EST Follow-Up [address] [address] Jeanne Dobson PA Morbid obesity (HCC) (Primary Dx); Essential hypertension; Need for pneumococcal vaccination; Encounter for tobacco use screening [Z01.89] 07/19/2024 8:20 AM EST Office Visit [address] [address] Jeanne Dobson PA Morbid obesity (HCC) (Primary Dx); BMI 45.0-49.9, adult (HCC) [Z68.42]; Encounter for tobacco use screening [Z01.89]; Essential hypertension; Hyperlipidemia, unspecified hyperlipidemia type; Moderate persistent asthma without complication; Moderate persistent asthma, unspecified whether complicated 2024 Documentation [facility] [address] [place] [id number] Apparel Designer: Jluis Combs MA OTHER (Called to see if patient is coming in for his follow-up appointment. LVM with office phone numbers so patient can reschedule his appointment.) from Last 3 Months Allergies Active Allergy Reactions Criticality Noted Date [...] stress disorder 07/07/20 12 Essential hypertension 2012 Assessment & Plan (07/19/2024 8:49 AM EST): [...] with the patient, his and Terri, his disease case manager who connected with us over the phone regarding the seizure and fall precaution and he needs to follow to ensure safety. Terri suggested the patient to check with [employer] to see what type of accomodation they can make for him. After our conversation with Terri was completed, I also extensively discussed with the patient and his regarding various other vocational options. Seizure and fall precaution No driving until seizure free for 6 months in [place]. Please check with local DMV if need [...] while weaning or after completing the weaning. Immunizations Name Administration Dates Next Due Covid-19 Monovalent Vaccine, Moderna, mRNA, PF 07/31/2021,11/11/2020,10/14/2020 Pneumococcal conjugate PCV20 ,polysaccharide UHI054 conjugate, adjuvant, PF (Prevnar 20) 07/25/2024 Tetanus Toxoid, Reduced Diph theria Toxoid, and Acellular Pertussis Vaccine, Adsorbed 05/19/2023,09/15/2010 Social History Tobacco Use Types Packs/Day Years [...] Info) Description 10/03/2024 3:00 PM EST Follow-Up [facility] 175 [facility] 175 [place], [place] [id number] Jeanne Dobson PA [address] [place] [address] Procedures * Due to [place] Ail[place]ing net law, this organization might not be sharing [...] to Health Maintenance Results * Due to [place] Ail[place]ing net law, this organization might not be sharing [...] obtain the completed interpretation. ? Workstation ID: [id number] Narrative 09/14/2024 10:19 AM EST INDICATION: ?? [...] bilateral neural foraminal narrowing. Resulting Agency Comment [id number] Procedure Note Pierce Grullon MD - 09/14/2024 [...] possible to obtain thecompleted interpretation. Workstation ID: [id number] Yuval GUERRA IMG MRI PROCEDURES Final R esult * Hepatitis C Antibody w/Reflex to HCV RNA, Quantitative PCR (05/19/2023 10:31 AM EDT) Hepatitis C Antibody NON-REACT SVETLANA NON-REACT SVETLANA 05/20/2023 7:25 AM EDT [employer] [facility] Comment: HCV antibody was non-reactive. There is no laboratory evidence of HCV infection. In most cases, no further action is required. However, if recent HCV exposure is suspected, a test for HCV RNA (test code 65051) is suggested. For additional information please refer to http://education.Circa.Tendr/faq/RSZ32p5 (This link is being provided for informational/ educational purposes only.) Blood Structure of peripheral vein / Unknown 05/19/2023 10:31 AM EDT 05/19/2023 11:20 PM EDT Narrative [facility] - 05/20/2023 7:28 AM EDT FASTING:NO Jeanne GUERRA LAB BLOOD ORDERABLES Final Result [facility] [address], [place] [address], [place] [phone] [employer] [address] [place] [address] * Comprehensive Metabolic Panel (05/19/2023 10:31 AM EDT) [facility] Glucose 93 65 - 139 mg/dL 05/20/2023 2:36 AM EDT [employer] Comment: ? Non-fasting reference interval BUN 12 7 - 25 mg/dL 05/20/2023 2:36 AM [employer] Creatinine 0.89 0.60 - 1.26 mg/dL 05/20/2023 2:36 AM [facility] eGFR 113 > OR = 60 mL/min/1. 73m2 05/20/2023 2:36 AM [employer] Bun/Creatinine Ratio SEE NOTE: 6 (calc) 05/20/2023 2:36 AM [employer] Comment: ?? Not Reported: BUN and Creatinine are within ?? reference range. ? Sodium 137 135 - 146 mmol/L 05/20/2023 2:36 AM [employer] Potassium 4.5 3.5 - 5.3 mmol/L 05/20/2023 2:36 AM [facility] Chloride 101 98 - 110 mmol/L 05/20/2023 2:36 AM [facility] Carbon Dioxide 27 20 - 32 mmol/L 05/20/2023 2:36 AM [facility] Calcium 9.6 8.6 - 10.3 mg/dL 05/20/2023 2:36 AM [facility] Protein, Total 6.9 6.1 - 8.1 g/dL 05/20/2023 2:36 AM [facility] Albumin 4.4 3.6 - 5.1 g/dL 05/20/2023 2:36 AM [facility] Globulin 2.5 1.9 - 3.7 g/dL (calc) 05/20/2023 2:36 AM [facility] Albumin/Globuli n Ratio 1.8 1.0 - 2.5 (calc) 05/20/2023 2:36 AM EDT [employer] [facility] Bilirubin, Total 0.5 0.2 - 1.2 mg/dL 05/20/2023 2:36 AM EDT [employer] [facility] Alkaline Phosphatase 57 36 - 130 U/L 05/20/2023 2:36 AM EDT [employer] [facility] AST 19 10 - 40 U/L 05/20/2023 2:36 AM EDT [employer] [facility] ALT 29 9 - 46 U/L 05/20/2023 2:36 AM EDT [employer] [facility] Blood Structure of peripheral vein / Unknown 05/19/2023 10:31 AM EDT 05/19/2023 11:02 PM EDT Narrative [facility] - 05/20/2023 7:28 AM EDT FASTING:NO Jeanne GUERRA LAB BLOOD ORDERABLES Final Result [facility] [address] [facility] [address], [place] [address], [employer] [facility] [address] [place] [address] from Last 3 Months or Most Recently Relevant to Health Maintenance Insurance [facility] Advance Directives Documents on File Type Date Recorded Patient Retail Client Solutions Analyst Expl anation Advance Directive 01/16/2013 12:00 AM [...] 3:12 PM 06/08/2017 3:51 PM Care Teams Improvement Engineer Relationship Specialty Start Date End Date Jeanne Dobson PA [address] [place] [address] PCP - General Physician Lead Athlete 03/09/22
== END 2024-09-15 10:02 | disposition home or self-care (01) ==
LOC: HO.HOSX 10:01
PROVIDERS: Visit Provider Physician Assistant
DX: Z13.89 Encounter for screening for other disorder (principal)

== ENCOUNTER 2024-09-29 13:12 | Outpatient (REF) | payer MEDICAID, SELFPAY ==
--- NOTE | ~2024-09-29 | XR_ITS ---
EXAMINATION: XR LUMBOSACRAL SPINE WITH FLEXION AND EXTENSION CLINICAL INFORMATION: Other intervertebral disc degeneration, lumbar spine COMPARISON: 01/10/2024. TECHNIQUE: Standing AP, lateral, lateral flexion and extension views of the lumbar spine were obtained. FINDINGS: There is no scoliosis. There is a normal lumbar lordosis. There is a stable 8 mm anterolisthesis of L5 upon S1, unchanged. Alignment is otherwise anatomic. There is no fracture, compression deformity, or suspicious bone lesion. There has been prior posterior fusion and discectomy of L4-S1, with transpedicular screws, posterior connecting rods, and disc prostheses. Hardware appears intact, well seated, without periprosthetic lucency. There is normal facet alignment. Nonoperative disc levels appear normal. On flexion examination, the anterolisthesis at L5-S1 decreases to 7 mm approximately. On extension, the anterolisthesis at L5-S1 measures 8 mm approximately. There is no definitive evidence of instability (less than 2 mm change). XR/XR lumbar spine 4V min IMPRESSION: 1. No acute bony abnormalities of lumbar spine. 2. L4-S1 posterior instrumented fusion without complication. 3. Grade 1, 8 mm anterolisthesis L5 on S1, without definite evidence of instability on flexion and extension. Electronically signed by: Gamal Michaud MD 10/03/2024 09:56 AM ZEINA
--- NOTE | ~2024-09-29 | XR_ITS ---
EXAMINATION: XR CERVICAL SPINE CLINICAL INFORMATION: M54.12 - Radiculopathy, cervical region COMPARISON: None available. TECHNIQUE: 6 views of the cervical spine, inclusive of flexion and extension views, were obtained. FINDINGS: Status post intervertebral body disc spacer placement/arthrodesis at C5-6. There is normal alignment in neutral position. There is 1 mm anterolisthesis at C3-4 during flexion which reduces in extension. Craniocervical junction is intact. No acute cortical disruption. No lytic or blastic lesions. XR/XR cervical spine 4V IMPRESSION: Questionable instability during flexion position which reduces in neutral and extension at C3-4. Electronically signed by: Jeovanny Hatfield MD 10/03/2024 09:58 AM EST
--- NOTE | ~2024-09-29 | XR_ITS ---
EXAMINATION: XR HIP 2 OR MORE VIEWS RIGHT HISTORY: M25.551 - Pain in right hip COMPARISON: There are no prior studies for comparison. FINDINGS: Two views of the right hip are submitted. Osseous mineralization is normal. There is no fracture or dislocation. The joint space is maintained. The patient is status post fusion of the lower lumbar spine. The soft tissues are unremarkable. XR/XR hip RT min 2V IMPRESSION: Unremarkable examination of the right hip. Electronically signed by: Markel Vargas MD 10/03/2024 09:44 AM [facility] KRAMER
--- NOTE | ~2024-09-29 | XR_ITS ---
EXAMINATION: XR KNEE 1-2 VIEWS RIGHT HISTORY: M25.561 - Pain in right knee COMPARISON: There are no prior studies available for comparison. FINDINGS: AP and lateral views of the right knee are submitted. Osseous mineralization is normal. There is no fracture or dislocation. The joint spaces are preserved. The soft tissues are unremarkable. XR/XR knee RT 2V IMPRESSION: Unremarkable examination of the right knee. Electronically signed by: Markel Vargas MD 10/03/2024 09:43 AM ZEINA
== END 2024-09-29 13:13 | disposition home or self-care (01) ==
LOC: HO.HOSX 13:12
PROVIDERS: Visit Provider Physician Assistant
DX: M25.551 Pain in right hip (principal); M25.561 Pain in right knee; M51.360 Other intervertebral disc degeneration, lumbar region with discogenic back pain only; M54.12 Radiculopathy, cervical region
CPT/HCPCS: 72050; 72110; 73502; 73560; 99212

== ENCOUNTER 2024-09-29 13:12 | Outpatient (AMB) | payer MEDICAID, SELFPAY ==
--- OUTSIDE RECORDS SUMMARY | 2024-09-29 13:38 | XMS_ITS | Clinical Summary ---
Author Organization [facility] Address [address] [place] [address] Care Team Providers Care Resident Associate Name Role Phone Unavailable Primary Care Provider [...]
--- OUTSIDE RECORDS SUMMARY | 2024-09-29 13:39 | XMS_ITS | Encounter Summary ---
Author Organization [facility] Address [address] [place] [address] Care Team Providers Care Waistband Setter Lockstitch Name Role Phone Jeanne Dobson Primary Care Provider +1- [phone] Reason for Visit * Reason Onset Date Comments Medication PA 08/30/2024 Encounter Details Date Type Department Care Team (Late st Contact Info) Description 08/30/2024 Telephone [facility] 175 [facility] 175 [place] [address] Jeanne Dobson PA 175 [place] [address] Medication PA Social History Tobacco Use Types [...] Info) Description 10/03/2024 3:00 PM EST Follow-Up [facility] 175 [facility] [address] [place] [address] Jeanne Dobson PA [address] [place] [address] documented as of this encounter Visit Diagnoses Not on filedocumented in this encounter Care Teams Waistband Setter Lockstitch Relationship Specialty Start Date End Date Jeanne Dobson PA [address] [place] [address] PCP - General Physician Skiing Instructor 03/09/22 documented as of this encounter
--- OUTSIDE RECORDS SUMMARY | 2024-09-29 13:39 | XMS_ITS | Encounter Summary ---
Author Organization [facility] Address [address] [place] [address] Care Team Providers Care Cement Mason Helper Name Role Phone Jeanne Dobson Primary Care Provider +1- [phone] Encounter Details Date Type Department Care Team (Late st Contact Info) Description 09/07/2024 Orders Only [facility] 175 [facility] 175 [place] [address] Jeanne Dobson PA [address] [place] [address] Social History Tobacco Use Types Packs/Day Years [...] Info) Description 10/03/2024 3:00 PM EST Follow-Up [facility] 175 [facility] 175 [place] [address] Jeanne Dobson PA [address] [place] [address] documented as of this encounter Visit Diagnoses Not on filedocumented in this encounter Care Teams Cement Mason Helper Relationship Specialty Start Date End Date Jeanne Dobson PA [address] [place] [address] PCP - General Physician Meters Superintendent 03/09/22 documented as of this encounter
--- OUTSIDE RECORDS SUMMARY | 2024-09-29 13:39 | XMS_ITS | Encounter Summary ---
Author Organization [facility] Address [address] [place] [address] Care Team Providers Care Rn Imaging Name Role Phone Jeanne Dobson Primary Care Provider +1- [phone] Reason for Referral * MRI/CAT/PET Scan (Routine) - Pending Review Specialty Diagnoses / Procedures Referred By Fareed ramirez Referred To Contact Radiology Diagnoses Other intervertebral disc degeneration, lumbar region Radiculopathy, cervical region Procedures MRI Cervical Spine WO Contrast Yuval Franco PA [address] [place] [address] Phone: tel: fax: Referral ID Status Reason Start Date Expiration Date V isits Requested Visits Authorized [id number] Pending Review 09/13/2024 03/15/2026 1 1 Encounter Details Date Type Department Care Team (Late st Contact Info) Description 09/13/2024 Orders Only [facility] [address] [address] Yuval Franco PA [address] [place] [address] Other intervertebral disc degeneration, lumbar region; Radiculopathy, [...] Info) Description 10/03/2024 3:00 PM EST Follow-Up [address] 175 [place] [address] Jeanne Dobson PA [address] [place] [address] documented as of this encounter Results * Due to [place] state law, this organization might not be sharing negative HIV tests. * MRI Cervical Spine WO Contrast (09/13/2024 10:00 PM EST) Anatomical Region Laterality Modality Spine, C-spine Magnetic Resonan ce 09/15/2024 11:0 9 AM EST Impressions 09/15/2024 3:24 PM EST Status post anterior fusion at C5-C6 with susceptibility artifacts from the hardware causing limited evaluation of the adjacent spinal canal. Multilevel degenerative changes without high-grade spinal canal stenosis at any level. Moderate to severe neural foramina narrowing at C3-C4. No intrinsic cord signal abnormality. ? IRavinder, have reviewed the examination and concur with the findings as reported or so edited. Trainee: ??Michelle Dimas If this radiology report contains a blank impression section, it is an incomplete radiology report. ??Please contact the interpreting radiologist or applicable radiology division as soon as possible to obtain the completed interpretation. ? Workstation ID: [id number] Narrative 09/15/2024 3:24 PM EST EXAMINATION: MRI of cervical spine without contrast TECHNIQUE: Multiplanar and multisequence MR imaging of cervical spine spine performed without intravenous contrast administration. Sequences obtained include, Sagittal plane: T1, T2 and STIR Axial plane: T2 and gradient CLINICAL INFORMATION: Cervical region radiculopathy COMPARISON: ??MRI cervical spine 07/09/2022 FINDINGS: Suboptimal evaluation due to streak artifacts from the spinal hardware which limits evaluation of the adjacent soft tissue structures. Cerebellar tonsils are normally positioned. There is mild straightening cervical lordosis, could be positional. The alignment of the cervical spine is otherwise preserved. The vertebral body heights are preserved. ??The marrow signal appears unremarkable without focal suspicious marrow lesion seen. Within limitations related to susceptibility artifacts, spinal cord appears unremarkable without focal cord signal abnormality or significant cord expansion. There is multilevel disc desiccation with mild loss in intervertebral disc height at T3-T4. The visualized prevertebral, paravertebral and paraspinous soft tissues appear unremarkable. At C2-C3, facet and left uncovertebral arthropathy causing mild left neural foramina narrowing. No significant spinal canal stenosis or right neural foraminal narrowing. Unchanged from prior MRI. At C3-C4, bilateral uncovertebral arthropathy and facet degeneration causing moderate to severe bilateral neural foramina narrowing. No canal stenosis. Unchanged from prior MRI. At C4-C5, limited evaluation due to susceptibility artifacts, within these limitations: There is bilateral uncovertebral arthropathy and facet degeneration causing bilateral cahy-ij-kdddrcso neural foramen narrowing. No canal stenosis. Unchanged since prior MRI.. At C5-C6, status post anterior fusion at C5-C6 with susceptibility artifacts from the hardware causing limited evaluation of the adjacent soft tissue structures. Neuroforamina are obscured. No high-grade canal stenosis At C6-C7, no canal stenosis or neural foramina narrowing. At C7-T1, not fully included in the axial images. However no spinal canal stenosis or neural foramina narrowing. Resulting Agency Comment [id number] Procedure Note Ravinder Mcmillan MD - 09/15/2024 EXAMINATION: MRI of cervical spine without contrast TECHNIQUE: Multiplanar and multisequence MR imaging of cervical spine spine performedwithout intravenous contrast administration. Sequences obtained include, Sagittal plane: T1, T2 and STIR Axial plane: T2 and gradient CLINICAL INFORMATION: Cervical region radiculopathy COMPARISON: MRI cervical spine 07/09/2022 FINDINGS: Suboptimal evaluation due to streak artifacts from the spinalhardware which limits evaluation of the adjacent soft tissue structures. Cerebellar tonsils are normally positioned. There is mild straightening cervical lordosis, could be positional. Thealignment of the cervical spine is otherwise preserved. The vertebral body heights are preserved. The marrow signal appearsunremarkable without focal suspicious marrow lesion seen. Within limitations related to susceptibility artifacts, spinal cordappears unremarkable without focal cord signal abnormality or significantcord expansion. There is multilevel disc desiccation with mild loss in intervertebral discheight at T3-T4. The visualized prevertebral, paravertebral and paraspinous soft tissuesappear unremarkable. At C2-C3, facet and left uncovertebral arthropathy causing mild leftneural foramina narrowing. No significant spinal canal stenosis or rightneural foraminal narrowing. Unchanged from prior MRI. At C3-C4, bilateral uncovertebral arthropathy and facet degenerationcausing moderate to severe bilateral neural foramina narrowing. No canalstenosis. Unchanged from prior MRI. At C4-C5, limited evaluation due to susceptibility artifacts, within theselimitations: There is bilateral uncovertebral arthropathy and facetdegeneration causing bilateral bqoa-xb-wueljvrr neural foramen narrowing.No canal stenosis. Unchanged since prior MRI.. At C5-C6, status post anterior fusion at C5-C6 with susceptibilityartifacts from the hardware causing limited evaluation of the adjacentsoft tissue structures. Neuroforamina are obscured. No high-grade canalstenosis At C6-C7, no canal stenosis or neural foramina narrowing. At C7-T1, not fully included in the axial images. However no spinal canalstenosis or neural foramina narrowing. IMPRESSION: Status post anterior fusion at C5-C6 with susceptibility artifacts fromthe hardware causing limited evaluation of the adjacent spinal canal. Multilevel degenerative changes without high-grade spinal canal stenosisat any level. Moderate to severe neural foramina narrowing at C3-C4. No intrinsic cord signal abnormality. Ravinder Umana, have reviewed the examination and concurwith the findings as reported or so edited. Trainee: Michelle Dimas If this radiology report contains a blank impression section, it is anincomplete radiology report. Please contact the interpreting radiologistor applicable radiology division as soon as possible to obtain thecompleted interpretation. Workstation ID: [id number] us Yuval GUERRA IMG MRI PROCEDURES Final R esult documented in this encounter Visit Diagnoses Diagnosis Other intervertebral disc degeneration, lumbar region Radiculopathy, cervical region Brachial neuritis or radiculitis nos documented in this encounter Care Teams Rn Imaging Relationship Specialty Start Date End Date Jeanne Dobson PA [address] [place] [address] PCP - General Physician Web Solutions Architect 03/09/22 documented as of this encounter
--- OUTSIDE RECORDS SUMMARY | 2024-09-29 13:39 | XMS_ITS | Encounter Summary ---
Author Organization [facility] Address [address] [place] [address] Care Team Providers Care Diesel Lube Tech Name Role Phone Jeanne Dobson Primary Care Provider +1- [phone] Reason for Referral * MRI/CAT/PET Scan (Routine) - Pending Review Specialty Diagnoses / Procedures Referred By Fareed ramirez Referred To Contact Radiology Diagnoses Other intervertebral disc degeneration, lumbar region Radiculopathy, cervical region Procedures MRI Lumbar Spine WO Contrast Yuval Franco PA [address] [place] [address] Phone: tel: fax: Referral ID Status Reason Start Date Expiration Date V isits Requested Visits Authorized [id number] Pending Review 09/04/2024 03/06/2026 1 1 Encounter Details Date Type Department Care Team (Late st Contact Info) Description 09/12/2024 Orders Only [facility] MRI [facility] [address] [place] [address] Yuval Franco PA [address] [place] [address] Other intervertebral disc degeneration, lumbar region; Radiculopathy, [...] Info) Description 10/03/2024 3:00 PM EST Follow-Up [facility] 175 [facility] 175 [place] [address] Jeanne Dobson PA [address] [place] [address] Scheduled Orders Name Type Priority Associated Diagnoses Orde r Schedule MRI Lumbar Spine WO Contrast Imaging [facility] Routine Other intervertebral disc degeneration, lumbar region Radiculopathy, cervical region 1 Occurrences starting 09/04/2024 until 10/05/2025 documented as of this encounter Visit Diagnoses Diagnosis Other intervertebral disc degeneration, lumbar region Radiculopathy, cervical region Brachial neuritis or radiculitis nos documented in this encounter Care Teams Diesel Lube Tech Relationship Specialty Start Date End Date Jeanne Dobson PA [address] [place] [address] PCP - General Physician Fiber Designer 03/09/22 documented as of this encounter
--- OUTSIDE RECORDS SUMMARY | 2024-09-29 13:39 | XMS_ITS | Data Portability ---
Author Organization [facility] Address [address] [place] [address] Care Team Providers Care Personal Lines Appraiser Name Role Phone HELENE LANGFORD Primary Care Provider [phone] HELENE LANGFORD Referring Provider SAM JOHNSON Primary Care Provider Assessment No [...] -- PATIE NT: ELSIE KEEN 840 [place] [facility] [place] #: [id number] AGE/S X: 34/M ROOM: RE09/[address]: Robe Alex DO : 06/27 BED: DIS: STATU S: DEP REF PROCE DURE/ OPERA TION PERFO RMED: EXCIS ION SPEC #: [id number] RECD: 09/08-0 911 STATU S: RUBIA PONCE #: [id number] ALBERTA: 09/07-[address]: Robe [...] LESIO N, RIGHT NECK, EXCIS ION: - Gardners l melan ocyti c nevus . Gross Exami natio n A. Recei les in forma simi label ed [facility], 06/27 and left scalp , cyst . It consi sts of an a well- circu mscri bed cysti c lesio n measu ring 0.7 x 0.4 x 0.4 cm. Bisec ana lilia, AP, one casse tte. B. Recei les in forma simi label ed [facility], 06/27 and rig t [...] ----- ----- ----- ----- -- Not Available [facility] [address] [place], [address], 09/11/2019 12:25:56 Result Notes None recorded. Problems No Known Problems Procedures Surgical History Date Name Laterality Status Provider Name and Address Organization Details Recorded Time 0 excision of cyst completed Denise Blas [facility] 09/20/2019 15:18:59 Imaging Results None recorded. Procedure Notes None recorded. Medical Equipment None Reported. Allergies Allergen ID Allergen Name Allergen Category Reaction Reaction Severity Criticality Documentation Date Start Date Code Code System Note Provider Name and Address Organization Details Recorded Time 631719 banana extract food,medi cation itching mild Not available 08/14/2019 90599 9 [facility] 0 09:32:35 677764 aluminum environme nt,medica tion rash moderate Not available 08/14/2019 60438 04 [facility] 0 09:33:16 Medications Name Sig Start Date [...] Address Organization Details Last Updated DateTime 0 077915. 83 g 162.56 cm 40.7 kg/m2 87 /min 132 mm[Hg] 84 mm[Hg] Hanna Mosqueda [facility] 0 09:31:49 Date Recorded Body height Body mass index (BMI) Body weight Provider Name and Address Organization Details Last Updated DateTime 09/22/2019 162.56 cm 40.9 kg/m2 343426.42 g Olya Mohanasseur [facility] 09/22/2019 13:00:46 Social History None recorded. Functional Status None recorded. Mental Status None recorded. Family History Nothing Reported. Medical History No medical history recorded. Past Encounters Encounter ID Performer Location Encounter Start Date Encounter Closed Date Diagnosis/Indication Diagnosis SNOMED-CT Code Diagnosis ICD10 Code Diagnosis Note [id number] Denise Lobato NP [facility] [address] [facility],[address] [place] [address] 05/06/2018 09:44:02 05/06/2018 11:24:25 [id number] Silvio carrasquillo DO [facility] [address] [facility] [place] [address] 08/14/2019 09:00:48 08/14/2019 09:59:25 Cyst of scalp 319011277 L72.9 book for local excision Consent obtained [id number] Silvio carrasquillo DO [facility] [address] [facility] [place] [address] 09/22/2019 12:57:49 09/22/2019 13:04:10 Postoperative visit 797935551 Z09 OK to D/C and follow up prn Health Concerns Section Related Observation LastModified by Organization Detai ls LastModified Time None Recorded Concern Status LastModified by Organization Details LastModified Time None Recorded Advance Directives Directive None Recorded Payers Encounter Date Sequence Insurance Name Policy Number Policy Drake Covered Member ID Drake Member ID Guarantor Name 08/14/2019 1 BCBS-ID BLUE [facility] ([place]) [id number] Yuval Faust [id number] 1 Yuval Faust 08/14/2019 1 [place] Yuval Faust [id number] Yuval Faust 09/22/2019 1 BCBS-ID BLUE [facility] ([place]) [id number] Yuval Faust [id number] 1 Yuval Faust 09/22/2019 1 [place] Yuval Faust [id number] Yuval Faust Notes Date Note Type Note Provider Name and Address Organization Details Recorded Time 08/14/2019 text/html 34 yo M with history o2 scalp cysts 3x3 and 1x1 cysts. No erythema or induration. Denies any pain, but notes discomfort due to location. Silvio Eason DO [address] [place] [address] NAIG Schaefer, [id number], [facility] 08/18/2019 13:02:37 09/22/2019 text/html 2 week follow-up from surgery fro scalp cysts removal. No complaints. Incisions healing well. Path cysts. Silvio Eason DO [address] [place] [address] NAGI Schaefer, [id number], [facility] 09/22/2019 13:15:27
--- OUTSIDE RECORDS SUMMARY | 2024-09-29 13:39 | XMS_ITS | Clinical Summary ---
Author Organization [facility] Address [address] [place] [address] Care Team Providers Care Two Way Radio Technician Name Role Phone Jeanne Dobson Primary Care Provider [phone] Allergies Active Allergy Reactions Criticality Noted Date [...] or heartburn. Active ibuprofen (MOTRIN) 800 mg tabletIndications: Spondylolysis Take 1 tablet (800 mg total) by mouth every 8 hours as needed for pain. 90 tablet 1 11/10/19 24 Active montelukast (SINGULAIR) 10 mg tabletIndications: Moderate persistent asthma, unspecified whether complicated Take 1 tablet (10 mg total) by mouth nightly. 90 tablet 1 11/10/19 24 Active losartan (COZAAR) 50 mg tabletIndications: Essential hypertension Take 1 tablet (50 mg total) by mouth once a day. 90 tablet 07/19/20 24 Active budesonide-formote roL (SYMBICORT) 160-4.5 mcg inhalerIndications :Moderate persistent asthma without complication Inhale 2 puffs by mouth 2 times a day. Rinse mouth with water after use. Do not swallow. 10.2 g 5 07/19/20 24 Active albuterol (Ventolin HFA) 90 mcg inhalerIndications :Moderate persistent asthma, unspecified whether complicated Inhale 2 puffs (180 mcg total) by mouth every 4 hours as needed for wheezing or shortness of breath. Use with spacer. 18 g 3 07/19/20 24 Active atorvastatin (LIPITOR) 10 mg tabletIndications: Hyperlipidemia, unspecified hyperlipidemia type TAKE 1 TABLET(10 MG) BY MOUTH EVERY NIGHT 30 tablet 2 08/22/19 25 Active tirzepatide, weight loss, (Zepbound) 5 mg/0.5 mL pen injector pen injector Inject 0.5 mL (5 mg total) under the skin once a week. 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 Please check with local DMV if need [...] Team Description 09/13/2024 Orders Only [facility] [address] [address] Yuval Franco PA Other intervertebral disc degeneration, lumbar region; Radiculopathy, cervical region 09/13/2024 Orders Only [facility] [address] [address] Yuval Franco PA Other intervertebral disc degeneration, lumbar region; Radiculopathy, cervical region 09/13/2024 Orders Only [facility] [address] [address] Yuval Franco PA Other intervertebral disc degeneration, lumbar region; Radiculopathy, cervical region 09/12/2024 Orders Only [facility] [address] [place] [address] Yuval Franco, PA Other intervertebral disc degeneration, lumbar region; Radiculopathy, cervical region 09/12/2024 Orders Only [facility] [address] [address] Yuval Franco, PA Other intervertebral disc degeneration, lumbar region; Radiculopathy, cervical region 09/07/2024 Orders Only [facility] [address] [address] Jeanne Dobson PA 09/05/2024 Telephone [facility] [address] [address] Jeanne Dobson PA [facility] Medication Refill 08/30/2024 Telephone [facility] [address] [address] Jeanne Dobson PA Medication PA 08/28/2024 1:20 PM EST Follow-Up [address] [address] Jeanne Dobson PA Morbid obesity (HCC) (Primary Dx); BMI 40.0-44.9, adult (HCC) [Z68.41]; Encounter for tobacco use screening [Z01.89]; Screening for depression; Screening for substance abuse; Dietary counseling; Exercise counseling 08/22/2024 Refill [facility] [address] [address] Jeanne Dobson PA Hyperlipidemia, unspecified hyperlipidemia type 08/07/2024 myChart Message [facility] [address] [address] Elizabeth Biggs RNtheology teacher- Zepbound 08/07/2024 Telephone [facility] [address] [address] Jeanne Dobson PA 07/26/2024 Orders Only [facility] [address] [address] Yuval Franco PA 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); Other intervertebral disc degeneration, lumbar region 07/26/2024 Orders Only [facility] [address] [address] Yuval Franco PA Other intervertebral disc degeneration, lumbar region 07/26/2024 Orders Only [facility] [address] [address] Yuval Franco PA Other intervertebral disc degeneration, lumbar region 07/26/2024 Orders Only [facility] [address] [address] Yuval Franco PA Radiculopathy, cervical region 07/26/2024 Orders Only [facility] [address] [address] Yuval Franco PA Other intervertebral disc degeneration, lumbar region 07/26/2024 Orders Only [facility] [address] [address] Yuval Franco PA Other intervertebral disc degeneration, lumbar region 07/26/2024 Orders Only [facility] [address] [address] Yuval Franco PA Radiculopathy, cervical region 07/25/2024 3:20 PM EST Follow-Up [address] [address] Jeanne Dobson PA Morbid obesity (HCC) (Primary Dx); Essential hypertension; Need for pneumococcal vaccination; Encounter for tobacco use screening [Z01.89] 07/25/[address] [address] Jeanne Dobson PA CHC Other 07/19/2024 8:20 AM EST Office Visit [address] [address] Jeanne Dobson PA Morbid obesity (HCC) (Primary Dx); BMI 45.0-49.9, adult (HCC) [Z68.42]; Encounter for tobacco use screening [Z01.89]; Essential hypertension; Hyperlipidemia, unspecified hyperlipidemia type; Moderate persistent asthma without complication; Moderate persistent asthma, unspecified whether complicated from Last 3 Months Immunizations Immunization Administration Dates Next Due Covid-19 Monovalent Vaccine, Moderna, mRNA, PF 07/31/2021,11/11/2020,10/14/2020 Pneumococcal conjugate PCV20 ,polysaccharide ORW901 conjugate, adjuvant, PF (Prevnar 20) 07/25/2024 Tetanus [...] Info) Description 10/03/2024 3:00 PM EST Follow-Up [facility] 175 [facility] [address] [place] [address] Jeanne Dobson PA [address] [place] [address] Health Maintenance Due Date Last Done Comments COVID-19 Vaccine ( - 2023-2 5 season) 2024 07/31/2021, 11/11/2020, 10/14/2020 Influenza [...] Pediat theron (0-5 Years) and At-Risk Patients (6-50 Years) Completed 07/25/2024 Alcohol/Substance Use Screening Completed Oral Health Screening Completed 08/28/2024 Hepatitis B Vaccines Discontinued Varicella Vaccines Discontinued Procedures * Due to [place] state law, this organization might not be sharing negative HIV tests. Procedure Name Priority Date/Time Associated Diagnosis Comments MRI LUMBAR SPINE WO CONTRAST Routine 09/13/2024 10:20 PM EST Other intervertebral disc degeneration, lumbar region Radiculopathy, cervical region MRI CERVICAL SPINE WO CONTRAST Routine 09/13/2024 10:00 PM EST Other intervertebral disc degeneration, lumbar region Radiculopathy, cervical region HEPATITIS C ANTIBODY W/REFLEX TO HCV RNA, QUANTITATIVE PCR Routine 05/19/2023 10:31 AM EDT Essential (primary) hypertension COMPREHENSIVE METABOLIC PANEL Routine 05/19/2023 10:31 AM EDT Essential (primary) hypertension from Last 3 Months or Most Recently Relevant to Health Maintenance Results * Due to [place] state law, this organization might not be [...] obtain the completed interpretation. ? Workstation ID: [id number] Narrative 09/14/2024 10:19 AM EST INDICATION: ?? [...] bilateral neural foraminal narrowing. Resulting Agency Comment [id number] Procedure Note Pierce Grullon MD - 09/14/2024 [...] possible to obtain thecompleted interpretation. Workstation ID: [id number] us Yuval GUERRA IMG MRI PROCEDURES Final R esult * MRI Cervical Spine WO Contrast (09/13/2024 [...] C3-C4. No intrinsic cord signal abnormality. ? Ravinder Umana, have reviewed the examination and concur with the findings as reported or so edited. Trainee: ??Michelle Dimas If this radiology report contains a blank impression section, it is an incomplete radiology report. ??Please contact the interpreting radiologist or applicable radiology division as soon as possible to obtain the completed interpretation. ? Workstation ID: [id number] Narrative 09/15/2024 3:24 PM EST EXAMINATION: MRI [...] uncovertebral arthropathy and facet degeneration causing bilateral guyc-[id number]-ulgrffvv neural foramen narrowing. No canal stenosis. Unchanged [...] or neural foramina narrowing. Resulting Agency Comment [id number] Procedure Note Ravinder Mcmillan MD - 09/15/2024 [...] bilateral uncovertebral arthropathy and facetdegeneration causing bilateral xxim-kx-oufwejye neural foramen narrowing.No canal stenosis. Unchanged since [...] possible to obtain thecompleted interpretation. Workstation ID: [id number] us Yuval [facility] MRI PROCEDURES Final R esult * Hepatitis C Antibody w/Reflex to HCV RNA, Quantitative PCR (05/19/2023 10:31 AM EDT) Hepatitis C Antibody NON-REACT SVETLANA NON-REACT SVETLANA 05/20/2023 7:25 AM EDT [facility] Comment: HCV antibody was non-reactive. There is no laboratory evidence of HCV infection. In most cases, no further action is required. However, if recent HCV exposure is suspected, a test for HCV RNA (test code 44239) is suggested. For additional information please refer to http://education.PicaHome.com.ticketscript/faq/NVN82r8 (This link is being provided for informational/ educational purposes only.) Blood Structure of peripheral vein / Unknown 05/19/2023 10:31 AM EDT 05/19/2023 11:20 PM EDT Narrative [facility] - 05/20/2023 7:28 AM EDT FASTING:NO Jeanne GUERRA LAB BLOOD ORDERABLES Final Result [facility] [address] [facility] [address], [place] [address], [facility] [address] [place] [address] * Comprehensive Metabolic Panel (05/19/2023 10:31 AM EDT) [facility] Glucose 93 65 - 139 mg/dL 05/20/2023 2:36 AM [facility] Comment: ? Non-fasting reference interval BUN 12 7 - 25 mg/dL 05/20/2023 2:36 AM [facility] Creatinine 0.89 0.60 - 1.26 mg/dL 05/20/2023 2:36 AM [facility] eGFR 113 > OR = 60 mL/min/1. 73m2 05/20/2023 2:36 AM [facility] Bun/Creatinine Ratio SEE NOTE: (calc) 05/20/2023 2:36 AM [facility] Comment: ?? Not Reported: BUN and Creatinine are within ?? reference range. ? Sodium 137 135 - 146 mmol/L 05/20/2023 2:36 AM [facility] Potassium 4.5 3.5 - 5.3 mmol/L 05/20/2023 2:36 AM [facility] Chloride 101 98 - 110 mmol/L 05/20/2023 2:36 AM [facility] Carbon Dioxide 27 20 - 32 mmol/L 05/20/2023 2:36 AM [facility] Calcium 9.6 8.6 - 10.3 mg/dL 05/20/2023 2:36 AM [facility] Protein, Total 6.9 6.1 - 8.1 g/dL 05/20/2023 2:36 AM [facility] Albumin 4.4 3.6 - 5.1 g/dL 05/20/2023 2:36 AM EDT [facility] Globulin 2.5 1.9 - 3.7 g/dL (calc) 05/20/2023 2:36 AM EDT [facility] Albumin/Globuli n Ratio 1.8 1.0 - 2.5 (calc) 05/20/2023 2:36 AM EDT [facility] Bilirubin, Total 0.5 0.2 - 1.2 mg/dL 05/20/2023 2:36 AM EDT [facility] Alkaline Phosphatase 57 36 - 130 U/L 05/20/2023 2:36 AM EDT [facility] AST 19 10 - 40 U/L 05/20/2023 2:36 AM EDT [facility] ALT 29 9 - 46 U/L 05/20/2023 2:36 AM EDT [facility] Blood Structure of peripheral vein / Unknown 05/19/2023 10:31 AM EDT 05/19/2023 11:02 PM EDT Narrative [facility] - 05/20/2023 7:28 AM EDT FASTING:NO Jeanne GUERRA LAB BLOOD ORDERABLES Final Result [facility] [address] [facility] [address], [place] [address], [facility] [address] [place] [address] from Last 3 Months or Most Recently Relevant to Health Maintenance Insurance Payment plugin HSNO/FREE CARE [facility] Advance Directives Documents on File Type Date Recorded Patient Physicians Assistant Expl anation Advance Directive 01/16/2013 12:00 AM [...] 3:12 PM 06/08/2017 3:51 PM Care Teams Two Way Radio Technician Relationship Specialty Start Date End Date Jeanne Dobson PA [address] [place] [address] PCP - General Physician Fashion Photographer 03/09/22
--- OUTSIDE RECORDS SUMMARY | 2024-09-29 13:39 | XMS_ITS | Clinical Summary ---
Author Organization [facility], Address [address] [place] [address] Phone Care Team Providers Care Loan Documentation Specialist Name Role Phone Jeanne Dobson Primary Care [...] 06/27 Influenza Vaccine (#1) [address] [id number] [place]ICAID [place] Care Teams Loan Documentation Specialist Relationship Specialty Start Date End Date Jeanne Dobson PA [address] [place] [address] [place] [address] PCP - General Nutrition 05/13/21
--- OUTSIDE RECORDS SUMMARY | 2024-09-29 13:39 | XMS_ITS | Referral Summary ---
Author Organization [facility] Address [address] [place] [address] Care Team Providers Care Paper Reel Operator Name Role Phone Jeanne Dobson Primary Care Provider +1- [phone] Encounters Date Type Department Care Team Description 09/13/2024 Orders Only [facility] [address] [address] Yuval Franco PA Other intervertebral disc degeneration, lumbar region; Radiculopathy, cervical region 09/13/2024 Orders Only [facility] [address] [address] Yuval Franco PA Other intervertebral disc degeneration, lumbar region; Radiculopathy, cervical region 09/13/2024 Orders Only [facility] [address] [address] Yuval Franco PA Other intervertebral disc degeneration, lumbar region; Radiculopathy, cervical region 09/12/2024 Orders Only [facility] [address] [address] Yuval Franco PA Other intervertebral disc degeneration, lumbar region; Radiculopathy, cervical region 09/12/2024 Orders Only [facility] [address] [address] Yuval Franco PA Other intervertebral disc degeneration, lumbar region; Radiculopathy, cervical region 09/07/2024 Orders Only [address] [address] Jeanne Dobson PA 09/05/2024 Telephone [facility] [address] [address] Jeanne Dobson PA CH[facility] Medication Refill 08/30/2024 Telephone [facility] [address] [address] Jeanne Dobson PA Medication PA 08/28/2024 1:20 PM EST Follow-Up [facility] [address] [address] Jeanne Dobson PA Morbid obesity (HCC) (Primary Dx); BMI 40.0-44.9, adult (HCC) [Z68.41]; Encounter for tobacco use screening [Z01.89]; Screening for depression; Screening for substance abuse; Dietary counseling; Exercise counseling 08/22/2024 Refill [facility] [address] [address] Jeanne Dobson PA Hyperlipidemia, unspecified hyperlipidemia type 08/07/2024 myChart Message [facility] [address] [address] Elizabeth Biggs RNlead ios developer- Zepbound 08/07/[address] [address] Jeanne Dobson PA 07/26/2024 Orders Only [facility] [address] [address] Yuval Franco, PA 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); Other intervertebral disc degeneration, lumbar region 07/26/2024 Orders Only [facility] [address] [address] Yuval Franco, PA Other intervertebral disc degeneration, lumbar region 07/26/2024 Orders Only [facility] [address] [address] Yuval Franco PA Other intervertebral disc degeneration, lumbar region 07/26/2024 Orders Only [facility] [address] [address] Yuval Franco PA Radiculopathy, cervical region 07/26/2024 Orders Only [facility] [address] [address] Yuval Franco PA Other intervertebral disc degeneration, lumbar region 07/26/2024 Orders Only [facility] [address] [address] Yuval Franco PA Other intervertebral disc degeneration, lumbar region 07/26/2024 Orders Only [facility] [address] [address] Yuval Franco PA Radiculopathy, cervical region 07/25/2024 Telephone [facility] [address] [place] [address] Jeanne Dobson PA CHC Other 07/25/2024 3:20 PM EST Follow-Up [address] [address] Jeanne Dobson PA Morbid obesity (HCC) (Primary Dx); Essential hypertension; Need for pneumococcal vaccination; Encounter for tobacco use screening [Z01.89] 07/19/2024 8:20 AM EST Office Visit [address] [address] Jeanne Dobson PA Morbid obesity (HCC) (Primary Dx); BMI 45.0-49.9, adult (HCC) [Z68.42]; Encounter for tobacco use screening [Z01.89]; Essential hypertension; Hyperlipidemia, unspecified hyperlipidemia type; Moderate persistent asthma without complication; Moderate persistent asthma, unspecified whether complicated from Last 3 Months Allergies Active Allergy [...] with the patient, his and Terri, 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 Terri suggested the patient to check with [employer] leaders to see what type of accomodation they can make for him. After our conversation with Terri was completed, I also extensively discussed with the patient and his regarding various other vocational options. Seizure and fall precaution No driving until seizure free for 6 months in [place]. Please check with local DMV if need [...] weaning or after completing the weaning. Immunizations Immunization Administration Dates Next Due Covid-19 Monovalent Vaccine, Moderna, mRNA, PF 07/31/2021,11/11/2020,10/14/2020 Pneumococcal conjugate PCV20 ,polysaccharide [id number] conjugate, adjuvant, PF (Prevnar 20) 07/25/2024 Tetanus [...] Info) Description 10/03/2024 3:00 PM EST Follow-Up [address] [address] Jeanne Dobson PA [address] [place] [address] Procedures * Due to [place] law, this organization might not be sharing [...] to Health Maintenance Results * Due to [place] 3[place] law, this organization might not be sharing [...] obtain the completed interpretation. ? Workstation ID: [id number] Narrative 09/14/2024 10:19 AM EST INDICATION: ?? [...] bilateral neural foraminal narrowing. Resulting Agency Comment [id number] Procedure Note Pierce Grullon MD - 09/14/2024 [...] possible to obtain thecompleted interpretation. Workstation ID: [id number] us Yuval GUERRA IMG MRI PROCEDURES Final [...] obtain the completed interpretation. ? Workstation ID: [id number] Narrative 09/15/2024 3:24 PM EST EXAMINATION: MRI [...] uncovertebral arthropathy and facet degeneration causing bilateral goej-ms-xkihggvw neural foramen narrowing. No canal stenosis. Unchanged [...] or neural foramina narrowing. Resulting Agency Comment [id number] Procedure Note Ravinder Mcmillan MD - 09/15/2024 [...] bilateral uncovertebral arthropathy and facetdegeneration causing bilateral iuzu-wn-ddknijhz neural foramen narrowing.No canal stenosis. Unchanged since [...] at C3-C4. No intrinsic cord signal abnormality. I, Ravinder Mcmillan, have reviewed the examination and concurwith the findings as reported or so edited. Trainee: Michelle Dimas If this radiology report contains a blank impression section, it is anincomplete radiology report. Please contact the interpreting radiologistor applicable radiology division as soon as possible to obtain thecompleted interpretation. Workstation ID: [id number] Yuval GUERRA IMG MRI PROCEDURES Final R esult * Hepatitis C Antibody w/Reflex to HCV RNA, Quantitative PCR (05/19/2023 10:31 AM EDT) [facility] Hepatitis C Antibody NON-REACT SVETLANA NON-REACT SVETLANA 05/20/2023 7:25 AM EDT [facility] Comment: HCV antibody was non-reactive. There is no laboratory evidence of HCV infection. In most cases, no further action is required. However, if recent HCV exposure is suspected, a test for HCV RNA (test code 88374) is suggested. For additional information please refer to http://education.Unica/faq/IFQ94q8 (This link is being provided for informational/ educational purposes only.) Blood Structure of peripheral vein / Unknown 05/19/2023 10:31 AM EDT 05/19/2023 11:20 PM EDT Narrative [facility] - 05/20/2023 7:28 AM EDT FASTING:NO Jeanne GUERRA LAB BLOOD ORDERABLES Final Result [facility] [address], [place] [address], [employer] [facility] [address] [place] [address] * Comprehensive Metabolic Panel (05/19/2023 10:31 AM EDT) [facility] Glucose 93 65 - 139 mg/dL 05/20/2023 2:36 AM EDT [employer] [facility] Comment: ? Non-fasting reference interval BUN 12 7 - 25 mg/dL 05/20/2023 2:36 AM EDT [facility] Creatinine 0.89 0.60 - 1.26 mg/dL 05/20/2023 2:36 AM EDT [employer] [facility] eGFR 113 > OR = 60 mL/min/1. 73m2 05/20/2023 2:36 AM EDT [facility] Bun/Creatinine Ratio SEE NOTE: (calc) 05/20/2023 2:36 AM EDT [facility] Comment: ?? Not Reported: BUN and Creatinine are within ?? reference range. ? Sodium 137 135 - 146 mmol/L 05/20/2023 2:36 AM EDT [facility] Potassium 4.5 3.5 - 5.3 mmol/L 05/20/2023 2:36 AM [employer] Chloride 101 98 - 110 mmol/L 05/20/2023 2:36 AM EDT [facility] Carbon Dioxide 27 20 - 32 mmol/L 05/20/2023 2:36 AM [employer] Calcium 9.6 8.6 - 10.3 mg/dL 05/20/2023 2:36 AM [employer] Protein, Total 6.9 6.1 - 8.1 g/dL 05/20/2023 2:36 AM [employer] Albumin 4.4 3.6 - 5.1 g/dL 05/20/2023 2:36 AM [employer] Globulin 2.5 1.9 - 3.7 g/dL (calc) 05/20/2023 2:36 AM [facility] Albumin/Globuli n Ratio 1.8 1.0 - 2.5 (calc) 05/20/2023 2:36 AM [employer] Bilirubin, Total 0.5 0.2 - 1.2 mg/dL 05/20/2023 2:36 AM [employer] [facility] Alkaline Phosphatase 57 36 - 130 U/L 05/20/2023 2:36 AM [employer] [facility] AST 19 10 - 40 U/L 05/20/2023 2:36 AM [employer] [facility] ALT 29 9 - 46 U/L 05/20/2023 2:36 AM [employer] Blood Structure of peripheral vein / Unknown 05/19/2023 10:31 AM EDT 05/19/2023 11:02 PM EDT Narrative [facility] - 05/20/2023 7:28 AM EDT FASTING:NO us Jeanne GUERRA LAB BLOOD ORDERABLES Final Result [facility] [address], [place] [address], [facility] [address] [place] [address] from Last 3 Months or Most Recently Relevant to Health Maintenance Insurance [place] [facility] Advance Directives Documents on File Type Date Recorded Patient Customer Support Associate Expl anation Advance Directive 01/16/2013 12:00 AM [...] 3:12 PM 06/08/2017 3:51 PM Care Teams Paper Reel Operator Relationship Specialty Start Date End Date Jeanne Dobson PA [address] [place] [address] PCP - General Physician Sugar Laboratory Assistant 03/09/22
--- OUTSIDE RECORDS SUMMARY | 2024-09-29 13:39 | XMS_ITS | Clinical Summary ---
Author Organization [facility] Address [address] [place] [address] Care Team Providers Care Python Web Developer Name Role Phone Unavailable Primary Care Provider Unavailabl e Social History Tobacco Use Types Packs/Day Years Used Date Smoking Tobacco: Never Assessed Sex and Gender Information Value Date Recorded Sex Assigned at Not on file Legal Sex Male 5:28 PM EST Gender Identity Not on file Sexual Orientation [...] patient's age to complete this topic Meningococcal B Vacine Aged Out No lo nger eligible based on patient's age to complete [...]
--- OUTSIDE RECORDS SUMMARY | 2024-09-29 13:39 | XMS_ITS | Encounter Summary ---
Author Organization [facility] Address [address] [place] [address] Care Team Providers Care Dumper Bulk System Name Role Phone Jeanne Dobson Primary Care Provider +1- [phone] Reason for Referral * MRI/CAT/PET Scan (Routine) - Pending Review Specialty Diagnoses / Procedures Referred By Fareed ramirez Referred To Contact Radiology Diagnoses Other intervertebral disc degeneration, lumbar region Radiculopathy, cervical region Procedures MRI Lumbar Spine WO Contrast Yuval Franco PA [address] [place] [address] Phone: tel: fax: Referral ID Status Reason Start Date Expiration Date V isits Requested Visits Authorized [id number] Pending Review 09/13/2024 03/15/2026 1 1 Encounter Details Date Type Department Care Team (Late st Contact Info) Description 09/13/2024 Orders Only [facility] MRI [facility] [address] [place] [address] Yuval Franco PA [address] [place] [address] Other intervertebral disc degeneration, lumbar region; Radiculopathy, [...] Info) Description 10/03/2024 3:00 PM EST Follow-Up [address] [place] [address] Jeanne Dobson PA [address] [place] [address] documented as of this encounter Results * Due to [place] state law, this organization might not be [...] obtain the completed interpretation. ? Workstation ID: [id number] Narrative 09/14/2024 10:19 AM EST INDICATION: ?? [...] bilateral neural foraminal narrowing. Resulting Agency Comment [id number] Procedure Note Pierce Grullon MD - 09/14/2024 [...] possible to obtain thecompleted interpretation. Workstation ID: [id number] us Yuval GUERRA IMG MRI PROCEDURES Final R esult documented in this encounter Visit Diagnoses Diagnosis Other intervertebral disc degeneration, lumbar region Radiculopathy, cervical region Brachial neuritis or radiculitis nos documented in this encounter Care Teams Dumper Bulk System Relationship Specialty Start Date End Date Jeanne Dobson PA [address] [place] [address] PCP - General Physician Embroidery Designer 03/09/22 documented as of this encounter
--- OUTSIDE RECORDS SUMMARY | 2024-09-29 13:39 | XMS_ITS | Encounter Summary ---
Author Organization [facility] Address [address] [place] [address] Care Team Providers Care Vp Product Name Role Phone Jeanne Dobson Primary Care Provider +1- [phone] Reason for Visit * Reason Onset Date Comments [facility] Medication Refill 09/05/2024 Encounter Details Date Type Department Care Team (Late st Contact Info) Description 09/05/2024 Telephone [facility] 175 [facility] [address] [place] [address] Jeanne Dobson PA [address] [place] [address] CHC Medication Refill Social History Tobacco Use [...] Info) Description 10/03/2024 3:00 PM EST Follow-Up [facility] 175 [facility] [address] [place] [address] Jeanne Dobson PA [address] [place] [address] documented as of this encounter Visit Diagnoses Not on filedocumented in this encounter Care Teams Vp Product Relationship Specialty Start Date End Date Jeanne Dobson PA [address] [place] [address] PCP - General Physician Mushroom Grower 03/09/22 documented as of this encounter
--- OUTSIDE RECORDS SUMMARY | 2024-09-29 13:39 | XMS_ITS | Encounter Summary ---
Author Organization [facility] Address [address] [place] [address] Care Team Providers Care Payroll Administrator Name Role Phone Jeanne Dobson Primary Care Provider +1- [phone] Reason for Referral * MRI/CAT/PET Scan (Routine) - Pending Review Specialty Diagnoses / Procedures Referred By Fareed ramirez Referred To Contact Radiology Diagnoses Other intervertebral disc degeneration, lumbar region Radiculopathy, cervical region Procedures MRI Lumbar Spine WO Contrast Yuval Franco PA [address] [place] [address] Phone: tel: fax: Referral ID Status Reason Start Date Expiration Date V isits Requested Visits Authorized [id number] Pending Review 09/13/2024 03/15/2026 1 1 Encounter Details Date Type Department Care Team (Late st Contact Info) Description 09/13/2024 Orders Only [facility] [address] [place] [address] Yuval Franco PA [address] [place] [address] Other intervertebral disc degeneration, lumbar region; Radiculopathy, [...] Info) Description 10/03/2024 3:00 PM EST Follow-Up [facility] 175 [facility] 175 [place] [address] Jeanne Dobson PA [address] [place] [address] Scheduled Orders Name Type Priority Associated Diagnoses Orde r Schedule MRI Lumbar Spine WO Contrast [facility] Routine Other intervertebral disc degeneration, lumbar region Radiculopathy, cervical region 1 Occurrences starting 09/13/2024 until 10/11/2025 documented as of this encounter Visit Diagnoses Diagnosis Other intervertebral disc degeneration, lumbar region Radiculopathy, cervical region Brachial neuritis or radiculitis nos documented in this encounter Care Teams Payroll Administrator Relationship Specialty Start Date End Date Jeanne Dobson PA [address] [place] [address] PCP - General Physician Aeroplane Pilot 03/09/22 documented as of this encounter
--- OUTSIDE RECORDS SUMMARY | 2024-09-29 13:39 | XMS_ITS | Data Portability ---
Author Organization [facility], [employer] [facility] Address [address] [place] [address] Care Team Providers Care Aerobics Teacher Name Role Phone ESTRELLA GORDILLO Primary Care Provider DUY ESTRELLA Referring Provider Assessment No assessment recorded. Plan of Treatment Reminders Order Date Submit Date Provider Last Modified By Organization Details Last Modified Time Details Appointments None recorded. Lab drug of abuse panel, urine - chain of custody - 10 drug screen 018 018 [facility], [address] [place], [address], 8 17:27:37 Referral None recorded. Procedures None [...] 8 93 /min 162.56 cm 36 kg/m2 03329.4 g 124 mm[Hg] 86 mm[Hg] Denise Lobato NP [facility] 8 10:58:29 Social History None recorded. Functional Status None recorded. Mental Status None recorded. Family History Nothing Reported. Medical History No medical history recorded. Past Encounters Encounter ID Performer Location Encounter Start Date Encounter Closed Date Diagnosis/Indication Diagnosis SNOMED-CT Code Diagnosis ICD10 Code Diagnosis Note [id number] Denise Lobato NP [facility] [address] [place] [address] 05/06/2018 09:44:02 05/06/2018 11:24:25 History and physical examination, pre-employment [id number] Z02.1 [id number] Silvio carrasquillo DO [facility] [address],[place] [address] 08/14/2019 09:00:48 08/14/2019 09:59:25 [id number] Silvio carrasquillo DO [facility] [address] [address] 09/22/2019 12:57:49 09/22/2019 13:04:10 Health Concerns Section Related Observation LastModified by Organization Detai ls LastModified Time None Recorded Concern Status LastModified by Organization Details LastModified Time None Recorded Advance Directives Directive None Recorded Payers Encounter Date Sequence Insurance Name Policy Number Policy Drake Covered Member ID Drake Member ID Guarantor Name 05/06/2018 Bazaart Yuval Faust Artaic Yuval Fuast Notes Date Note Type Note Provider Name and Address Organization Details Recorded Time 05/06/2018 text/html Patient presents to the office for a pre-employment physical as a new employee for [employer]. He believes, based upon the job description that was provided to him that he can handle all duties and responsibilities of the job. He denies any history of work related injuries. Denise Lobato NP [facility] 05/06/2018 10:58:43
--- OUTSIDE RECORDS SUMMARY | 2024-09-29 13:39 | XMS_ITS | Encounter Summary ---
Author Organization [facility] Address [address] [place] [address] Care Team Providers Care Applied Statistician Name Role Phone Jeanne Dobson Primary Care Provider +1- [phone] Reason for Referral * MRI/CAT/PET Scan (Routine) - Pending Review Specialty Diagnoses / Procedures Referred By Fareed ramirez Referred To Contact Radiology Diagnoses Other intervertebral disc degeneration, lumbar region Radiculopathy, cervical region Procedures MRI Cervical Spine WO Contrast Yuval Franco PA [address] [place] [address] Phone: tel: fax: Referral ID Status Reason Start Date Expiration Date V isits Requested Visits Authorized [id number] Pending Review 09/04/2024 03/06/2026 1 1 Encounter Details Date Type Department Care Team (Late st Contact Info) Description 09/12/2024 Orders Only [facility] [address] [address] Yuval Franco PA [address] [place] [address] Other intervertebral disc degeneration, lumbar region; Radiculopathy, [...] Info) Description 10/03/2024 3:00 PM EST Follow-Up [facility] 175 [facility] 175 [place] [address] Jeanne Dobson PA [address] [place] [address] Scheduled Orders Name Type Priority Associated Diagnoses Orde r Schedule MRI Cervical Spine WO Contrast Imaging [facility] Routine Other intervertebral disc degeneration, lumbar region Radiculopathy, cervical region 1 Occurrences starting 09/04/2024 until 10/05/2025 documented as of this encounter Visit Diagnoses Diagnosis Other intervertebral disc degeneration, lumbar region Radiculopathy, cervical region Brachial neuritis or radiculitis nos documented in this encounter Care Teams Applied Statistician Relationship Specialty Start Date End Date Jeanne Dobson PA [address] [place] [address] PCP - General Physician Shipyard Painter Helper 03/09/22 documented as of this encounter
--- NOTE | 2024-09-29 13:55 | HO.SPINEOV ---
Intake Visit Reasons: F/u discuss sx Intake Note: Mr. Faust is here today to discuss surgery. Repair Department Supervisor Required: No Allergies aluminum Allergy (Intermediate, Verified 09/29/24 14:03) Rash banana Allergy (Intermediate, Verified 09/29/24 14:03) Itching Assessment & Plan Assessment & Plan (1) Right hip pain: Code(s): M25.551 - Pain in right hip Category: Medical (2) Right knee pain: Code(s): M25.561 - Pain in right knee Category: Medical Plan Mr Faust is here in follow-up. Last time we saw him he had been complaining of severe back pain going down both of his legs, greater on the right. Specifically going into his anterior thigh into his knee. The pain has been getting particularly worse, we reordered a new MRI done at [facility] and unfortunately this shows that he has now progressively worsening stenosis above his fusion at L3-4. He has on exam severe pain with weakness of his right quadriceps and absent patellar reflex. I would rate as weakness as 4- out of 5. He has been using Motrin, he has lost 40 lb, has been actively doing home therapy exercises now for months without relief. He is unable to stand for more even the just a few minutes here in the office without limping around. He is having a hard time maintaining his focus with work as he has a very physical job. 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 Unfortunately though I think this is progressed to where he is developing significant adjacent segment disease that would benefit from surgery. Dr. Valdez reviewed the imaging as well and believes he would benefit from an L3-4 oblique lumbar interbody fusion, revision of posterior instrumentation. We did hip and knee x-rays a precaution just to check because he did have some tenderness with internal rotation but these do not show any signs of avascular necrosis or severe osteoarthritis. Pt was given risk and benefits of surgery including but not limited to infection, hematoma , nerve injury,durotomy, weakness,bowel/bladder injury, persistent pain, adjacent segment disease as well as the option to continue with conservative treatment and patient wishes to proceed with surgery. Pt is aware they should stop their motrin, and Zepbound 7 days prior to surgery. All questions were answered to the best of our ability. If there is anything about this patients medical history that we have overlooked or concerns you have about us proceeding with surgery we would appreciate any input you can offer. Total amount of time spent in this visit was 20 minutes in discussion of symptoms, lumbar imaging results and subsequent plan of care Yuval Valdez MD,PhD [facility] Orders: Orders XR hip RT min 2V Today M25.551 - Pain in right hip XR knee RT 2V Today M25.561 - Pain in right knee Coding Level of Care Code Est Pt Level 3 (31732) Diagnoses Right hip pain M25.551 Right knee pain M25.561
== END 2024-09-29 16:04 | disposition home or self-care (01) ==
PROVIDERS: Visit Provider Physician Assistant
DX: M25.551 Pain in right hip (principal); M25.561 Pain in right knee
CPT/HCPCS: 99213

== ENCOUNTER → 2024-09-29 13:22 | Outpatient (BNV) | payer MEDICAID, SELFPAY | PROVIDERS: Visit Provider Radiology Diagnostic Radiology | DX: M54.12 Radiculopathy, cervical region (principal); M51.369 Other intervertebral disc degeneration, lumbar region without mention of lumbar back pain or lower extremity pain; Z98.1 Arthrodesis status; M25.551 Pain in right hip; M25.561 Pain in right knee | CPT/HCPCS: 72050; 72110; 73502; 73560 ==

== ENCOUNTER 2024-10-24 06:39 | Outpatient (BNV) | payer MEDICAID, SELFPAY | END 2024-10-26 09:48 | PROVIDERS: Admitting Provider Physician Assistant; PCP Physician Assistant; Visit Provider Radiology Diagnostic Radiology | DX: M25.551 Pain in right hip (principal); M25.561 Pain in right knee | CPT/HCPCS: 72131 ==

== ENCOUNTER 2024-10-24 06:39 | Inpatient (IN) | payer MEDICAID, SELFPAY ==
[2024-10-13 10:13] VITALS: BP 125/73; PULSE 78; RESP 20; O2SAT 97; BMI 41.9
[2024-10-13 11:49] LABS: Hematocrit 50.2 % (42.0-52.0); Hemoglobin 16.3 g/dl (14.0-18.0); Mean Corpuscular HGB Conc 32.5 g/dl (31.0-36.0); Mean Corpuscular Hemoglobin 28.6 pg (27.0-33.0); Mean Corpuscular Volume 88.1 fL (80.0-98.0); Platelet Count 259 X10*3/uL (160-400); Red Cell Distribution Width 13.4 % (11.0-16.0); White Blood Count 8.1 X10*3/uL (4.8-10.8)
[2024-10-13 12:39] LABS: Alanine Aminotransferase 37 U/L (0-40); Albumin Level 4.4 g/dL (3.5-5.0); Alkaline Phosphatase 54 U/L (39-117); Anion Gap 10 (12-20); Aspartate Amino Transferase 26 U/L (5-37); Bilirubin Total 0.5 mg/dL (0.0-1.0); Blood Urea Nitrogen 15 mg/dL (9-16); Calcium 9.3 mg/dL (8.4-10.2); Carbon Dioxide 26 mmol/L (22-29); Chloride 108 mmol/L (96-108); Creatinine Clr Calc Pharmacy 157.6; Estimated Glomerular Filt Rate > 60; Glucose Random 81 mg/dL (60-115); Potassium 3.9 mmol/L (3.3-5.1); Sodium 140 mmol/L (135-145); Total Protein 7.6 g/dL (6.5-8.0)
[2024-10-24] VITALS (17 sets, daily range): BP systolic 112–132; BP diastolic 57–86; PULSE 82–115; RESP 16–20; TEMP 36.2–36.9; O2SAT 92–100; BMI 43.3
--- NOTE | ~2024-10-24 | FL_ITS ---
EXAMINATION: FL GUIDANCE ONLY HISTORY: L3-L4 OLIF COMPARISON: Correlation is made with plain films of the lumbar spine dated 09/29/2024. TECHNIQUE: Fluoroscopy time: 1 minute, 20 seconds.. Cumulative Dose: 7 2.382 mGy. DAP: 30.087 mGym2 Images: 3. FINDINGS: Images demonstrate removal of S1 pedicle screws and spinal stabilization rods and placement of a disc prosthesis at L3-4. FL/FL guidance in OR IMPRESSION: Fluoroscopy during procedure. Please see procedure report for additional information. Electronically signed by: Markel Vargas MD 10/24/2024 11:13 AM EDT
--- NOTE | ~2024-10-24 | CT_ITS ---
EXAMINATION: CT LUMBAR SPINE WITHOUT CONTRAST CLINICAL INFORMATION: Status post surgery. Pain, right lower extremity. COMPARISON: Correlated to x-ray dated September 29, 2024 demonstrated status post L4 S1 fusion and grade 1 anterolisthesis L5-S1. TECHNIQUE: Contiguous axial images through the lumbar spine using 2 mm collimation with bone and soft tissue algorithm. Sagittal and coronal reformatted images acquired. This CT examination was performed using dose optimization techniques as appropriate, variously including the following: *Automated exposure control *Adjustment of mA and/or kV according to patient size (this includes techniques or standardized protocols for targeted exams where dose is matched to indication/reason for exam; i.e. extremities or head) *Use of iterative reconstruction technique. DLP: 1197 mGy centimeter. FINDINGS: Last rib-bearing vertebra labeled T12. There is being hardening artifact secondary to the metallic hardware placed through the pedicles L3-L4 and right S1 as well as the intervertebral discs body spacers at L3-4 L4-L5 and L5-S1. There is sclerosis of the inferior endplate of L5 and superior endplate of S1 with associated the subchondral cyst formation. There is a grade 1 anterolisthesis L5-S1 secondary to spondylolysis pars interarticularis. Status post removal of the screws at L5 and left S1. Inadequate evaluation of the thecal sac central spinal canal or the neural foramina. Spina bifida occulta in the sacrum and L5. There is of fluid density in the deep fat planes of the lumbosacral region extending from L2 to the sacrum with subcutaneous emphysema in the right psoas to a lesser extent left psoas and the lower lumbosacral muscles likely related to recent surgical procedure. CT/CT lumbar spine wo IV con IMPRESSION: Post surgical changes in the muscular plane and soft tissues without gross fluid collections. The possibility of epidural hematoma cannot be excluded. Status post removal chest pedicle screws at L5 and the left S1. No ovarian pseudomeningocele. Sclerosis in the endplates of L5 and S1 suggesting of the possible inflammatory process. Spina bifida sacrum and L5. Electronically signed by: Jeovanny Hatfield MD 10/26/2024 10:27 AM EDT
[2024-10-24] MEDS: methocarbamoL 750 MG TABLET PO ×2 (06:47→21:57)
[2024-10-24] MEDS: Gabapentin 300 MG CAPSULE PO (06:47)
--- NOTE | 2024-10-24 06:56 | MHC.SHP ---
Pre-Procedural Eval Section A - 24 Hr Update-Section A only Date of Service: 10/24/24 The patient is an INPATIENT: No Changes since office visit: No Cold of Flu in the past 2 weeks, No New Medical Problems, No Changes in Medication and No Patient answered all questions The patient has been examined within 24 hours of the surgical procedure. The History & Physical has been completed within 30 days and I have reviewed it.: No Section B - Complete if H&P > 30 days Chief Complaint: S/p L-4 OLIF Allergies: Allergies Allergy/AdvReac Type Severity Reaction Status Date / Time aluminum Allergy Intermediate Rash Verified 10/24/24 06:25 banana Allergy Intermediate Itching Verified 10/24/24 06:25 Review of Systems Sugical H&P ROS: Negative: Constitution, Cardiovascular, Respiratory, Neurological, Psychiatric, Hem-Onc, Allergic/Immunologic, Gastrointestinal, Genitourinary, Musculoskeletal, Integumentary, Endocrine and Eyes/Ears/Nose/Throat Exam Surgical H&P Exam: Normal: HEENT, Normal: Heart, Normal: Lungs, Normal: Extremities, Normal: Abdomen, Normal: Skin and Normal: Neurological (awake, alert,oriented x 3 ) Plan Diagnosis/Plan: Unchanged L3-4 oblique lumbar interbody fusion/revision posterior instrumentation Time Spent With Patient Time: Total time managing care of this patient today _5___ minutes.
--- NOTE | 2024-10-24 07:24 | P.CONAN_ITS ---
HPI - Anesthesia Eval Consult details Narrative: 39 yo M presenting for L3-4 OLIF PMFSH Active Problems Active Problems: All Active Problems Right knee pain (Acute) Right hip pain (Acute) Lumbar degenerative disc disease (Acute) Cervical radiculopathy (Acute) Past Medical History Medical History (Updated 10/13/24 @ 10:05 by Rand Neumann RN) Alcohol use disorder in remission Weight loss History of MRSA infection Basal cell carcinoma Back pain GERD (gastroesophageal reflux disease) Elevated cholesterol HTN (hypertension) Asthma Family History Family history of problems with anesthesia: No Surgical History Surgical History (Updated 10/13/24 @ 10:01 by Rand Neumann RN) Hx of neck surgery Hx of wisdom tooth extraction Hx of tonsillectomy Hx of vasectomy Hx of hand surgery Hx of carpal tunnel repair Hx of lumbar discectomy History of lumbar fusion History of Problems with Anesthesia: No Social History Social History Household Members Other:: S.O. & minor children Are you a primary direct support professional caregiver to a significant other at home: No Do you presently have visiting nurse or other home services: No Comment: advised of trip hazard Patient Tobacco Use Status: Never used Tobacco Use of substances other than those prescribed or required for medical reasons: No Have you been hit, kicked, punched, or otherwise hurt by someone within the past year? If so, by whom?: No Spiritual Healthcare Practices: none Roman Catholic Healthcare Practices: none Cultural Healthcare Practices: none Are you DNR?: No Advance Directives: No Advance Directives Information Provided: No Advance Directives on File: No Recently lost weight without trying: No Eating poorly because of decreased appetite: No Nutrition Risks: No Nutritional Risk Poor oral hygiene: No (extracted teeth & crowns-multiple) Meds Allergies Allergy/AdvReac Type Severity Reaction Status Date / Time aluminum Allergy Intermediate Rash Verified 10/24/24 06:25 banana Allergy Intermediate Itching Verified 10/24/24 06:25 Home Medications ?Medication ?Instructions ?Recorded ?Confirmed ?Last Taken ?Type albuterol sulfate 90 mcg/actuation 2 puff inhalation Q4H PRN wheezing 12/01/23 10/24/24 12/16/23 History aerosol inhaler (Ventolin HFA) ibuprofen 800 mg tablet 800 mg PO TID PRN Pain 12/01/23 10/24/24 12/07/23 History loratadine 10 mg tablet 10 mg PO QAM 12/01/23 10/24/24 12/15/23 History losartan 25 mg tablet 50 mg PO BEDTIME 12/01/23 10/24/24 12/15/23 History atorvastatin 10 mg tablet 10 mg PO BEDTIME 12/02/23 10/24/24 12/16/23 History inulin 2 gram chewable tablet 4 g PO BEDTIME 10/13/24 10/24/24 Unknown History multivitamin 1 tab PO BEDTIME 10/13/24 10/24/24 Unknown History oxycodone 5 mg tablet 10 mg PO Q6-8H PRN severe pain 10/13/24 10/24/24 Unknown History (scale score 7-10) Exam Exam Date and Time: 10/24/24724 Height,Weight and Vital Signs: Height 5 ft 4 in Weight 110.677 kg Last Vital Signs Temp 97.7 F 10/24/24 06:42 Pulse 82 10/24/24 06:42 Resp 16 10/24/24 06:42 BP 132/85 10/24/24 06:42 Pulse Ox 95 10/24/24 06:42 O2 Del Method Room Air 10/24/24 06:42 Pertinent Lab Results Pertinent Lab Results: Laboratory Tests 10/13/24 10/13/24 10:46 10:52 WBC 8.1 RBC 5.70 Hgb 16.3 Hct 50.2 MCV 88.1 MCH 28.6 MCHC 32.5 RDW 13.4 Plt Count 259 MPV 12.0 Absolute Nucleated RBC 0.000 Nucleated RBC % (auto) 0.0 Sodium 140 Potassium 3.9 Chloride 108 Carbon Dioxide 26 Anion Gap 10 L BUN 15 Creatinine 0.71 Estim Creat Clear Calc 157.6 Estimated GFR > 60 Random Glucose 81 Calcium 9.3 Total Bilirubin 0.5 AST 26 ALT 37 Alkaline Phosphatase 54 Total Protein 7.6 Albumin 4.4 Blood Type A Negative Antibody Screen NEGATIVE Airway Mallampati Class: III TM Dist: <=3cm Neck ROM: Poor Loose/Missing/Broken Teeth: Yes (missing molars) Heart: S1S2 Lungs: CTAB Assessment and Plan Assessment Anesthesia Assessment: Anesthesia Plan Discussed and Chart Reviewed Final Anesthetic Review Family History of Problems with Anesthesia: No History of Problems with Anesthesia: No NPO: Yes ASA Class: III Final Preanesthetic Review: No Changes in Pt Med Stat, Meds/Allgs Chart Reviewe d, Consent Obtained/Reviewed and Anes Risks/Benef Reviewed Patient Risk: Intermediate Procedure Risk: Intermediate Anesthetic Plan Anesthetic Plan: GA and Agree w/ Assess. and Plan Disposition: Standard PACU
[2024-10-24] MEDS: ceFAZolin Sodium/Dextrose,Iso 2 GM/50 ML PIGGYBACK IV ×3 (07:45→20:01)
--- NOTE | 2024-10-24 10:30 | W.PM.OPN ---
Operative Note Operative Note Date of Service: 10/24/24 Narrative: Preop Diagnosis: 1.) Adjacent degenerative disc disease L3-4 with back pain and neurogenic claudication 2) status post L4-S1 lumbar fusion Procedure: 1) L3-4 discectomy, arthrodesis and implantation cage through an anterolateral, retroperitoneal approach 2) Removal L5 and S1 posterior instrumented fusion 3) insertion L3 pedicle screws connected to in situ L4 pedicle screws 4) posterolateral fusion L3-L4 5) allograft Consent Informed Consent was obtained for this operation. I have explained the nature, purpose and benefits of the operation. I have discussed the risks and benefit of the operation including possible complications or adverse events with patient/family. Alternative(s) were discussed with the patient with their relative benefits and risks as well as the consequences of not accepting the operation were included in obtaining consent. Surgeon: URIEL LOZANO MD, PHD Procedure Assisted By: kieran Rausch Description of Procedure This patient had a previous L4-S1 fusion done. The presented with progressive back pain and neurogenic claudication symptoms due to adjacent degenerative disc disease with central spinal stenosis. The patient was offered an oblique lumbar interbody fusion L3-L4 with revision and extension of the posterior instrumentation. The procedure and complications were explained. The patient was consented. The patient was brought to the operating room and endotracheally intubated. The patient was turned in a lateral position with the left side up. Prep and drape was done followed by timeout. A small incision was made in the left lower abdominal quadrant. The muscle fascia was opened after which the 3 muscle layer was split to enter the retroperitoneal space. Dilators were docked in the anterior one third of the L3-4 disc space followed by a retractor. The retractor was opened. The L3-4 disc space was exposed. An annulotomy was done after which an elevator Arreaga was used to release the disc material from its endplates and to perforate the contralateral side. A partial discectomy was done. An 8 and 10 mm height trial implant was inserted. The discectomy was completed. The endplates were prepared. An 10 x 50 mm with was 0 degree lordosis 4 web cage filled with allograft was inserted into the disc space under fluoroscopic guidance. This resulted in indirect decompression of the nerve structures. The retractor was removed. Hemostasis was done. The incision was closed in 2 layers. Steri-Strips used to approximate incision. An OpSite with Tegaderm was used to cover the incision. This marked first part of the procedure. T he patient was turned prone on the Fantasma spine table. 2C arms were installed for fluoroscopy. Prep and drape was done followed by a second timeout. The previous two paramedian incisions were opened and the posterior L4-S1 instrumentation was exposed. Locking caps and rods were removed. Accordingly, the L 5 and S1 screws were removed bilaterally. The Tulip head of the right S1 screw was broken and was therefore the screw was left in place. The following steps were taken. A pediguard tap was used to create a transpedicular trajectory into the vertebral body. A K wire was placed. A specially designed instrument was advanced over the K wire to decorticate the posterolateral gutter in preparation for the posterolateral fusion. A pedicle screw was advanced over the K wire and the K wire was removed. The steps were done for the bilateral L3 pedicles. A total of 2 screws were placed with a diameter of 6.5 x 45 mm. The L3 pedicle screws were connected to the L4 pedicle screws with a 40 mm ave bilaterally and locked down with locking caps. The extension towers were removed. The posterolateral gutter was filled with allograft to complete the posterolateral L3-4 fusion Hemostasis was done and the incision was closed in 2 layers. Steri-Strips were used to approximate the incision. An OpSite with tegaderm was used to cover the incision. All sponge and needle counts were correct. Patient was extubated and transferred in stable is to recovery room. Anesthesia: General Estimated Blood Loss (ml): 50 Duration of Surgery: 2 hours 30 minutes Complications: None Postoperative Plan: Admit to inpatient for observation
[2024-10-24] MEDS: HYDROmorphone HCl 0.5 MG/0.5 ML SYRINGE IVPUSH ×4 (10:44→11:10)
--- NOTE | 2024-10-24 12:49 | PHA.MEDREC ---
Pharmacy Consult ? Medication Reconciliation Pharmacy has reviewed the medication reconciliation done by nursing and also spoke to patient to confirm med list. Per patient, he is not taking oxycodone regularly, he only took it pre-op. He is injectin Zepbound 5 mg every , last dose was about 10 days ago.
[2024-10-24] MEDS: 0.9 % Sodium Chloride 1,000 ML 75 ML IVCONT (13:09)
[2024-10-24] MEDS: Loratadine 10 MG TABLET PO (13:24)
[2024-10-24] MEDS: HYDROmorphone HCl 1 MG/ML SYRINGE IVPUSH ×2 (13:58→17:04)
[2024-10-24] MEDS: Ketorolac Tromethamine 15 MG/ML VIAL IVPUSH ×2 (16:46→21:56)
[2024-10-24] MEDS: Acetaminophen 1,000 MG/100 ML PIGGYBACK 400 MG IV ×2 (16:46→21:57)
[2024-10-24] MEDS: Atorvastatin Calcium 10 MG TABLET PO (20:00)
[2024-10-24] MEDS: Losartan Potassium 50 MG TABLET PO (20:00)
[2024-10-24] MEDS: Multivitamin TABLET 1 TAB PO (20:00)
[2024-10-24] MEDS: Docusate Sodium 100 MG CAPSULE PO (20:00)
[2024-10-24] MEDS: HYDROmorphone HCl 2 MG TABLET 4 MG PO ×2 (20:00→23:06)
[2024-10-25] VITALS (8 sets, daily range): BP systolic 114–123; BP diastolic 56–64; PULSE 80–91; RESP 16–18; TEMP 36.2–36.8; O2SAT 94–96
[2024-10-25] MEDS: HYDROmorphone HCl 2 MG TABLET 4 MG PO ×7 (01:57→22:36)
[2024-10-25] MEDS: ceFAZolin Sodium/Dextrose,Iso 2 GM/50 ML PIGGYBACK IV (01:58)
[2024-10-25] MEDS: 0.9 % Sodium Chloride 1,000 ML 75 ML IVCONT ×2 (01:58→14:54)
[2024-10-25] MEDS: Acetaminophen 1,000 MG/100 ML PIGGYBACK 400 MG IV ×4 (04:31→22:37)
[2024-10-25] MEDS: Ketorolac Tromethamine 15 MG/ML VIAL IVPUSH ×4 (04:31→22:36)
[2024-10-25] MEDS: methocarbamoL 750 MG TABLET PO ×2 (05:17→13:07)
[2024-10-25] MEDS: Docusate Sodium 100 MG CAPSULE PO ×2 (08:17→20:10)
[2024-10-25] MEDS: Loratadine 10 MG TABLET PO (08:17)
--- NOTE | 2024-10-25 08:55 | MHC.CM.PN ---
S/P L4 ORIF Patient lives with . He is independent with ADLs. He reports using a cane pre-op. DP home self care. Patient will arrange for a family member to provide transportation home.
--- NOTE | 2024-10-25 10:53 | HO.NEUROPN_ITS ---
Neurosurgery Operative Note Date of Service: 10/25/24 Narrative: Procedure: L3-4 OLIF Yuval is a pleasant 39-year-old male who underwent L3-[address] Valdez yesterday. He is currently admitted to [address] [place] [address]. He was seen sitting in the bedside recliner this morning. He has been doing well in the immediate postoperative period, however he continues to have fairly severe low back pain and weakness in his right leg. To recap when last evaluated in clinic he did have right-sided leg weakness, but he reports that it is worse now postoperatively. This may be due to his overall self-reported poor pain control. He has been utilizing his Dilaudid 4 mg q3h or Dilaudid 1 mg IV push as needed. He reports he has been up out of bed to the bathroom, but needed assistance to do so. No new neurological deficits. The patient has about 3/5 strength with right- sided strength testing, and does elicit quite a bit of pain to strength testing on this side. His left-sided strength remains full. Although this objective strength testing while the patient is in the bedside recliner is worse than preoperatively, he was able to bear weight on this side and ambulate with the assist to the bathroom. Antonieta 39-year-old male who underwent L3-[address] Valdez yesterday. He has been struggling with pain control, and we would like to see him try and ambulate and work with physical therapy today. He reported that he has either been getting p.o. Dilaudid or IV Dilaudid, further stating that he has not been getting p.o. Dilaudid when he gets IV Dilaudid and has had to choose between the two. He had previous surgery with us at [facility], and stated that p.o. Dilaudid alongside the IV Dilaudid was the only thing that could get his pain under control. For this reason I scheduled his Dilaudid 4 mg every 4 hours, and advised the nursing staff via tiger text that he can still get his Dilaudid IV push when needed. He will remain admitted to [address] [place] [address] today for continued neurological assessment and pain control. The patient was also evaluated by Dr. Valdez this morning, who understands and agrees to this plan. Nolan Valdez MD,PhD [facility]
--- NOTE | 2024-10-25 11:44 | HO.POSTANES ---
Post Anesthesia Evaluation Post Anesthesia Evaluation Date of Service: 10/25/24 Vital Signs: Vital Signs Temp Pulse Resp BP Pulse Ox O2 Del Method 10/25/24 10:17 80 123/64 96 10/25/24 07:41 97.9 F 80 16 123/64 96 Room Air 10/25/24 03:46 97.4 F 91 18 114/64 95 Room Air Anesthesia: General Endotracheal-GETA Mental Status: Awake Pain Control: Satisfactory Nausea/Vomiting: None Hydration: Adequate Anesthesia-Related Issues: No Anes. Related Issues
[2024-10-25] MEDS: HYDROmorphone HCl 1 MG/ML SYRINGE IVPUSH ×3 (13:04→20:02)
[2024-10-25] MEDS: Gabapentin 300 MG CAPSULE PO ×2 (14:56→20:16)
[2024-10-25] MEDS: Multivitamin TABLET 1 TAB PO (20:07)
[2024-10-25] MEDS: Atorvastatin Calcium 10 MG TABLET PO (20:07)
[2024-10-25] MEDS: Losartan Potassium 50 MG TABLET PO (20:07)
[2024-10-26] MEDS: HYDROmorphone HCl 1 MG/ML SYRINGE IVPUSH ×3 (01:22→11:22)
[2024-10-26] MEDS: HYDROmorphone HCl 2 MG TABLET 4 MG PO ×4 (02:39→13:41)
[2024-10-26 03:19] VITALS: BP 127/63; PULSE 89; RESP 18; TEMP 36.7; O2SAT 97
[2024-10-26] MEDS: 0.9 % Sodium Chloride 1,000 ML 75 ML IVCONT (03:53)
[2024-10-26] MEDS: Ketorolac Tromethamine 15 MG/ML VIAL IVPUSH ×2 (04:56→10:14)
[2024-10-26] MEDS: Acetaminophen 1,000 MG/100 ML PIGGYBACK 400 MG IV ×2 (04:57→10:14)
[2024-10-26 07:48] VITALS: BP 121/67; PULSE 86; RESP 16; TEMP 36.7; O2SAT 95
[2024-10-26] MEDS: Loratadine 10 MG TABLET PO (08:57)
[2024-10-26] MEDS: Gabapentin 300 MG CAPSULE PO (08:57)
[2024-10-26] MEDS: Docusate Sodium 100 MG CAPSULE PO (08:58)
--- NOTE | 2024-10-26 09:25 | HO.NEURO.PN ---
Neurosurgery Operative Note Date of Service: 10/26/24 Narrative: Postop day 2., L3-4 oblique lumbar interbody fusion. Patient reports that his right leg pain seems to be increased. He is having a hard time walking on his right leg. His left leg feels like there some cramping but he is otherwise doing okay. He is tolerating a diet thus far and voiding okay. He is continuing to take p.o. and IV Dilaudid in addition to IV Toradol and Tylenol Afebrile, vital signs stable Physical exam: Patient examined today at bedside with Dr. Valdez, the patient resting comfortably but he is uncomfortable with positive straight leg raise. Difficult to test strength secondary to pain and discomfort but sensation is normal. Wounds clean and dry and intact. No signs of hematoma. Impression: Postop day 2. L3-4 oblique lumbar interbody fusion, patient continues to have his preoperative right leg pain in the same distribution as it was before surgery. Seems more intense now despite escalating levels of narcotics it, anti-inflammatories and Tylenol. Patient examined today with Dr. Valdez, given the increase in his symptoms we will check CT scan for evaluation of hardware. Plan to follow thereafter.
[2024-10-26] MEDS: Sennosides/Docusate Sodium TABLET 2 TAB PO (10:15)
--- NOTE | 2024-10-26 13:12 | PM.DS ---
DS: Providers Provider Date of Service: 10/26/24 Date of admission: 10/24/24 06:39 Date of discharge: 10/26/24 Primary care physician: MARI Gardner DS: Summary Time Attestation Discharge Coordination Time (in mins): 14 Quality: Safe Use of Opioids Does Pt have an Active Cancer Diagnosis on the Problem List?: No Quality: Stroke Does the patient have a stroke diagnosis?: No Physical Exam Vital Signs: Vital Signs: Last Vital Signs Temp 98.0 F 10/26/24 07:48 Pulse 86 10/26/24 07:48 Resp 16 10/26/24 07:48 BP 121/67 10/26/24 07:48 Pulse Ox 95 10/26/24 07:48 O2 Del Method Room Air 10/26/24 07:48 BMI result Body Mass Index 43.3 Discharge Plan Discharge Anticipated Discharge Date/Time: 10/26/24 13:28 Patient Disposition: Home, Self-Care Discharge Diagnosis: s/p L3-4 OLIF Referrals: Jeanne Dobson PA [Primary Care Provider] - 1 Week Discharge Medications: New hydromorphone 4 mg tablet 4 mg PO Q4-6H PRN (Reason: pain (scale score 7-10)) Qty: 42 0RF Rx Instructions: Partial Fill upon patient request. methocarbamol 500 mg tablet 500 mg PO TID Qty: 21 1RF acetaminophen 500 mg tablet 1,000 mg PO Q8H PRN (Reason: pain (scale score 4-6)) Qty: 42 0RF docusate sodium 100 mg capsule 100 mg PO BID Qty: 14 1RF Continued losartan 25 mg tablet 50 mg PO BEDTIME albuterol sulfate [Ventolin HFA] 90 mcg/actuation HFA aerosol inhaler 2 puff INHALATION Q4H PRN (Reason: wheezing) loratadine 10 mg Tablet 10 mg PO QAM ibuprofen 800 mg tablet 800 mg PO TID PRN (Reason: Pain) atorvastatin 10 mg tablet 10 mg PO BEDTIME multivitamin Tablet 1 tab PO BEDTIME Fiber Gummies 2 gram Tablet,Chewable 4 g PO BEDTIME Zepbound 5 mg/0.5 mL pen injector 5 mg subcut TH Discharge Orders: Discharge Order (Routine); Ordered 10/26/24 Ordered By: Nolan Freitas Diet: Advance to usual diet Activity on Discharge: As tolerated Stand Alone Forms: Patient Portal Discharge page Print Language: Guamanian Activity Restrictions/Additional Instructions: After your spinal surgery we ask you to observe the following restrictions/guidelines: Activity: It is normal to feel some discomfort as you increase your activity, but that will improve with time. We ask you avoid heavy lifting or acitivities that cause pain. As a general rule, 8lbs is a safe limit for lifting right after surgery. Walk as much as you feel comfortable but not to exhaustion. You will feel extra tired the first few days after surgery. Stay well hydrated. It is OK to walk up and down stairs You may return to driving when you are off narcotics (such as vicodin, oxycodone, dilaudid, etc), and you are back to normal functional capacity. If you have any concerns please check with office before driving. Return to work is specific to each patient and each surgery, so please speak with your doctor/PA at first follow up. Please bring paperwork such as FMLA at that time if you need it filled out. Medications: We recommend you take 1,000mg Tylenol every 8 hours for the first few weeks after surgery, if you do not have any liver issues and can tolerate this medication. Do not exceed 4,000mg daily. We will give you a short supply of narcotics after surgery (usually one weeks worth). If you need more please call the office but do not use more than prescribed. You will need to give our office 48 hours notice if you need narcotics refilled and we do not fill narcotics on weekends or evenings. If you are on a narcotic, it is a good idea to take a stool softener such as colace or senna to avoid constipation If you take blood thinner such as aspirin, Plavix, Coumadin, Effient, Eliquis etc for conditions such as Afib, DVT, Pulmonary embolus, coronary disease, stents etc please speak with your surgeon about specific details as to when you can resume these medications. You can resume NSAIDs on post op day 1 (eg: Motrin, Naproxen, etc). Follow up: Please call the office, , after surgery to arrange a 3 week follow up for wound check. Wound Care: You may remove your dressing on the first day after surgery. ?You may ?leave open to air. Please do not remove the steri strips underneath. they will fall off on their own in one week. IT IS NORMAL FOR THE WOUND TO OOZE OR BE BLOODY FOR A FEW DAYS AFTER SURGERY. ?IF THIS HAPPENS JUST PLACE NEW DRESSING OVER IT TO AVOID STAINING CLOTHES. You may shower on post op day # 1 We ask that you do not let the water soak the wound. If it does get wet, just towel dry lightly. Please do not scrub your incision or place any type of chemical/ointment on the wound. No tub baths, pools or jacuzzis for one month. If you have any leaking or redness from your wound, or fevers, please call the office. Care Plan Goals: Return to normal activity as tolerated Health Concerns: None Plan of Treatment: Follow-up in clinic in 2-3 weeks Assessment: Postop day 2, L3-4 oblique lumbar interbody fusion. Patient reports that his right leg pain seems to be increased. He is having a hard time walking on his right leg. His left leg feels like there some cramping but he is otherwise doing okay. He is tolerating a diet thus far and voiding okay. He is continuing to take p.o. and IV Dilaudid in addition to IV Toradol and Tylenol Afebrile, vital signs stable Physical exam: Patient examined today at bedside with Dr. Valdez, the patient resting comfortably but he is uncomfortable with positive straight leg raise. Difficult to test strength secondary to pain and discomfort but sensation is normal. Wounds clean and dry and intact. No signs of hematoma. Impression: Postop day 2. L3-4 oblique lumbar interbody fusion, patient continues to have his preoperative right leg pain in the same distribution as it was before surgery. Seems more intense now despite escalating levels of narcotics, anti-inflammatories and Tylenol. Patient examined today by Dr. Valdez and MARI Franco. After CT scan was obtained and reviewed by Dr. Valdez he was medically cleared for [place] home. Nolan Valdez MD,PhD [facility]
[2024-10-26] MEDS: methocarbamoL 750 MG TABLET PO (13:41)
--- NOTE | 2024-10-26 13:50 | MHC.CM.PN ---
PT TO DC HOME TODAY WITH NO SERVICES VIA PRIVATE TRANSPORT
[2024-10-26 14:00] VITALS: BP 127/63; PULSE 93; RESP 16; O2SAT 96
== END 2024-10-26 14:30 | disposition home or self-care (01) | DRG 304 ==
LOC: HO.SSSA 06:42 → HO.S3 10:57
PROVIDERS: Nurse Practitioner; Admitting Provider Physician Assistant; PCP Physician Assistant; Visit Provider Neurological Surgery
PROC: 0SG00A0 Fusion of Lumbar Vertebral Joint with Interbody Fusion Device, Anterior Approach, Anterior Column, Open Approach (ICD-10-PCS; principal; 2024-10-24 07:30)
DX: M51.369 Other intervertebral disc degeneration, lumbar region without mention of lumbar back pain or lower extremity pain (principal); J45.909 Unspecified asthma, uncomplicated; M48.062 Spinal stenosis, lumbar region with neurogenic claudication; Z86.14 Personal history of Methicillin resistant Staphylococcus aureus infection; Z79.899 Other long term (current) drug therapy
CPT/HCPCS: 36415; 72131; 80053; 85027; 86850; 86900; 86901; 97162; 97530; C1713; C1889; J0131; J0360; J0665; J0690; J1100; J1171; J1885; J2003; J2250; J2405; J2704; J3010; L8699

== ENCOUNTER → 2024-10-24 06:39 | Outpatient (BNV) | payer MEDICAID, SELFPAY | PROVIDERS: Admitting Provider Physician Assistant; PCP Physician Assistant; Visit Provider Neurological Surgery | DX: M51.362 Other intervertebral disc degeneration, lumbar region with discogenic back pain and lower extremity pain (principal) | CPT/HCPCS: 20930; 22558; 22612; 22840; 22853 ==

== ENCOUNTER 2024-11-14 14:19 | Outpatient (AMB) | payer MEDICAID, SELFPAY ==
--- NOTE | 2024-11-14 14:07 | HO.SPINEOV ---
Intake Visit Reasons: 1st post op Intake Note: Mr. Faust is here today for his 1st post op. Insurance Claims Adjuster Required: No Allergies aluminum Allergy (Intermediate, Verified 10/24/24 06:25) Rash banana Allergy (Intermediate, Verified 10/24/24 06:25) Itching Assessment & Plan Assessment & Plan (1) S/P spinal fusion: Code(s): Z98.1 - Arthrodesis status Category: Surgical Plan Procedure: L3-4 OLIF Yuval is a pleasant 39 year old male who underwent L3-[address] Valdez a few weeks ago. He comes in today for his 1st postoperative visit. Like darby reports that his 1st couple of weeks after surgery were quite painful. He was having difficulty mobilize around his home. Thankfully today he is feeling better. He does still have quite a bit of difficulty sleeping at night, and often finds himself waking up several times throughout the night in pain. We reviewed his x-ray images from fluoroscopy during this visit per his request. He asked several questions regarding the postoperative healing course all of which I answered to the best of my ability. No new neurological deficits. The patient ambulates well and rises from seated position without difficulty. His posterior and oblique incision sites appear closed and well healing. I would like Yuval to follow up with us again in 6 weeks and obtain a set of x-rays. Nolan Valdez MD,PhD [facility] Medications: New oxycodone Take 1-2 tablets by mouth at bedtime PRN; Partial Fill upon patient request. 14 tabs 0RF pain Coding Level of Care Code Global (45458) Diagnoses S/P spinal fusion Z98.1
--- OUTSIDE RECORDS SUMMARY | 2024-11-14 17:26 | XMS_ITS | Data Portability ---
Author Organization [facility], [employer] [facility] Address [address] [place] [address] Care Team Providers Care Occupational Psychologist Name Role Phone ESTRELLA GORDILLO Primary Care Provider DUY ESTRELLA Referring Provider [phone] Assessment No assessment recorded. Plan of Treatment Reminders Order Date Submit Date Provider Last Modified By Organization Details Last Modified Time Details Appointments None recorded. Lab drug of abuse panel, urine - chain of custody - 10 drug screen [id number] [facility], [address] [place], [address], 8 17:27:37 Referral None recorded. Procedures None [...] 8 93 /min 162.56 cm 36 kg/m2 24621.4 g 124 mm[Hg] 86 mm[Hg] Denise Lobato NP [facility] 8 10:58:29 Social History None recorded. Functional Status None recorded. Mental Status None recorded. Family History Nothing Reported. Medical History No medical history recorded. Past Encounters Encounter ID Performer Location Encounter Start Date Encounter Closed Date Diagnosis/Indication Diagnosis SNOMED-CT Code Diagnosis ICD10 Code Diagnosis Note [id number] Denise Lobato NP [facility] [address] [place] [address] 05/06/2018 09:44:02 05/06/2018 11:24:25 History and physical examination, pre-employment [id number] Z02.1 [id number] Silvio carrasquillo DO [facility] [address] [address] 08/14/2019 09:00:48 08/14/2019 09:59:25 [id number] Silvio carrasquillo DO [facility] [address] [address] 09/22/2019 12:57:49 09/22/2019 13:04:10 Health Concerns Section Related Observation LastModified by Organization Detai ls LastModified Time None Recorded Concern Status LastModified by Organization Details LastModified Time None Recorded Advance Directives Directive None Recorded Payers Encounter Date Sequence Insurance Name Policy Number Policy Drake Covered Member ID Darke Member ID Guarantor Name 05/06/2018 [employer] Yuval Faust Danger Yuval Faust Notes Date Note Type Note Provider Name and Address Organization Details Recorded Time 05/06/2018 text/html Patient presents to the office for a 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 He believes, based upon the job description that was provided to him that he can handle all duties and responsibilities of the job. He denies any history of work related injuries. Denise Lobato NP [facility], [facility] 05/06/2018 10:58:43
--- OUTSIDE RECORDS SUMMARY | 2024-11-14 17:26 | XMS_ITS | Clinical Summary ---
Author Organization [facility] Address [address] [place] [address] Care Team Providers Care Glass Glazier Name Role Phone Unavailable Primary Care Provider [...] age to complete this topic Meningococcal B Vaccine Aged Out No l onger eligible based on patient's age to complete [...]
--- OUTSIDE RECORDS SUMMARY | 2024-11-14 17:26 | XMS_ITS | Clinical Summary ---
Author Organization [facility] Address [address] [place] [address] Care Team Providers Care Director Of Infection Control Name Role Phone Jeanne Dobson Primary Care Provider [phone] Allergies Active Allergy Reactions Criticality Noted Date [...] tabletIndications :Moderate persistent asthma, unspecified whether complicated (HCC) Take 1 tablet (10 mg total) by mouth nightly. 90 tablet 1 024 Active budesonide-formot Tho (SYMBICORT) 160-4.5 mcg inhalerIndication s:Moderate persistent asthma without complication (HCC) Inhale 2 puffs by mouth 2 times a day. Rinse mouth with water after use. Do not swallow. 10.2 g 5 024 Active albuterol (Ventolin HFA) 90 mcg inhalerIndication s:Moderate persistent asthma, unspecified whether complicated (HCC) Inhale 2 puffs (180 mcg total) by mouth every 4 hours as needed for wheezing or shortness of breath. Use with spacer. 18 g 3 024 Active atorvastatin (LIPITOR) 10 mg tabletIndications :Hyperlipidemia, unspecified hyperlipidemia type TAKE 1 TABLET(10 MG) BY MOUTH EVERY NIGHT 30 tablet 2 025 Active LORazepam (ATIVAN) 0.5 mg tablet One po 1hr prior to procedure, may repeat x1 2 tablet 025 Active tirzepatide, weight loss, (Zepbound) 7.5 mg/0.5 mL pen injectorIndicatio ns:Morbid obesity (HCC) Inject 0.5 mL (7.5 mg total) under the skin once a week. 2 mL 1 025 Active losartan (COZAAR) 50 mg tabletIndications :Essential hypertension TAKE 1 TABLET(50 MG) BY MOUTH DAILY 90 tablet 025 Active losartan (COZAAR) 50 mg tabletIndications :Essential hypertension Take 1 tablet (50 mg total) by mouth once a day. 90 tablet 024 2024 Discontinued oxyCODONE IR (ROXICODONE) 5 mg tabletIndications :Spondylolysis 1-2 po at bedtime prn pain 26 tablet 025 2024 Active Problems Problem Noted Date Diagnosed Date Hyperlipidemia 01/12/2024 Assessment & Plan (01/12/2024 6:48 PM EDT): Check fasting labs at earliest convenience. Continue lipitor and lifestyle changes. Morbid obesity 10/13/2023 Overview (10/03/2024): Patient with alcohol use disorder and HTN, phentermine not recommended. Will increase to zepbound 7.5mg. Also recommend continued lifestyle changes including diet and exercise. Congratulated on his efforts! Assessment & Plan (07/19/2024 8:42 AM EST): Discuss GLP1s at OV next week. Assessment & Plan (01/12/2024 6:47 PM EDT): Continue with weight loss efforts. Use food for fuel, not comfort. 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 This is to last until surgery on 10/24/24. 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 Terri suggested the patient to check with [employer] leaders to see what type of accomodation they can make for him. After our conversation with Terri was completed, I also extensively discussed with the patient and his regarding various other vocational options. Seizure and fall precaution No driving until seizure free for 6 months in [place]. Please check with local DMV if need [...] Encounters Date Type Department Care Team Description 10/26/2024 Orders Only [facility] [address] [facility] [address] [place] [address] Provider, MD Ingrid 10/24/2024 Orders Only [facility] [address] [facility] [facility] [address] [place] [address] Provider, MD Ingrid 10/19/2024 Refill [facility] [address] [place] [address] Jeanne Dobson PA Essential hypertension 10/10/2024 Orders Only [facility] [address] [place] [address] Jeanne Dobson PA Spondylolysis 10/10/2024 myChart Message [facility] [address] [place] [address] Olya Eric, IRMA Oxycodone 10/09/2024 Refill [facility] [address] [place] [address] Jeanne Dobson PA Spondylolysis 10/03/2024 3:00 PM EST Follow-Up [facility] [address] [address] Jeanne Dobson PA Spondylolysis (Primary Dx); BMI 40.0-44.9, adult ([facility]) [Z68.41]; Encounter for tobacco use screening [Z01.89]; Morbid obesity 09/13/2024 Orders Only [facility] [address] [address] Yuval Franco PA Other intervertebral disc degeneration, lumbar region; Radiculopathy, cervical region 09/13/2024 Orders Only [facility] [address] [address] Yuval Franco PA Other intervertebral disc degeneration, lumbar region; Radiculopathy, cervical region 09/13/2024 Orders Only [facility] [address] [address] Yuval Franco, PA Other intervertebral disc degeneration, lumbar region; Radiculopathy, cervical region 09/12/2024 Orders Only [facility] [address] [address] Yuval Franco PA Other intervertebral disc degeneration, lumbar region; Radiculopathy, cervical region 09/12/2024 Orders Only [facility] [address] [address] Yuval Franco, PA Other intervertebral disc degeneration, lumbar region; Radiculopathy, cervical region 09/07/2024 Orders Only [address] [address] Jeanne Dobson PA 09/05/[address] [address] Jeanne Dobson PA [facility] Medication Refill 08/30/[address] [address] Jeanne Dobson PA Medication PA 08/28/2024 1:20 PM EST Follow-Up [address] [address] Jeanne Dobson PA Morbid obesity (Primary Dx); BMI 40.0-44.9, adult ([facility]) [Z68.41]; Encounter for tobacco use screening [Z01.89]; Screening for depression; Screening for substance abuse; Dietary counseling; Exercise counseling 08/22/[address] [address] Jeanne Dobson PA Hyperlipidemia, unspecified hyperlipidemia type from Last 3 Months Immunizations Immunization Administration Dates Next Due Covid-19 Monovalent Vaccine, Moderna, mRNA, PF 07/31/2021,11/11/2020,10/14/2020 Pneumococcal conjugate PCV20 ,polysaccharide [id number] conjugate, adjuvant, PF (Prevnar 20) 07/25/2024 Tetanus [...] Sign Reading Time Taken Comments Blood Pressure 138/70 10/03/2024 2:58 PM EST Pulse 88 10/03/2024 2:58 PM EST Temperature 36.6 ??C (97.8 ??F) 10/03/2024 2:58 PM ES T Respiratory Rate 20 05/20/2023 1:10 PM EDT Oxygen Saturation 97% 10/03/2024 2:58 PM EST Inhaled Oxygen Concentration - - Weight 112.5 kg (248 lb) 10/03/2024 2:58 PM EST Height 164.2 cm (5' 4.65 ) 10/03/2024 2:58 PM ES T Body Mass Index 41.72 10/03/2024 2:58 PM EST Plan of Treatment Upcoming Encounters Date Type Department Care Team (Late st Contact Info) Description 11/23/2024 11:20 AM EDT Follow-Up [facility] [address] [facility] [address] [place] [address] Jeanne Dobson PA [address] [place] [address] Health Maintenance Due Date Last Done Comments COVID-19 Vaccine (2023-2 5 season) 2024 07/31/2021, 11/11/2020, 10/14/2020 Basic Metabolic Panel 05/19/2024 05/19/2023 , 06/08/2017, 04/23/2015, Additional history exists Influenza Vaccine (Season Ended) 2025 Depression Screening and Follow-Up 08/28/2025 08/28/2024, 08/28/2024 [...] Varicella Vaccines Discontinued Procedures * Due to [place] [employer] law, this organization might not be sharing negative HIV tests. Procedure Name Priority Date/Time Associated Diagnosis Comments AMB EXTERNAL CT L-SPINE, OUTSIDE RESULT Routine 10/24/2024 11:39 AM EDT PROCEDURE - SCANNED Routine 10/24/2024 1 0:59 AM EDT MRI LUMBAR SPINE WO CONTRAST Routine 09/13/2024 [...] to Health Maintenance Results * Due to [place] [employer] law, this organization might not be sharing negative HIV tests. * CT L-Spine, Outside Result (10/24/2024 11:39 AM EDT) Anatomical Region Laterality Modality Other us Unknown Provider MD ISLAS EXTERNAL RESULT PROCEDUR ES Final Result * PROCEDURE - SCANNED (10/24/2024 10:59 AM EDT) us Unknown Provider SCANNED PROCEDURES Final Res ult * MRI Lumbar Spine WO Contrast (09/13/2024 [...] obtain the completed interpretation. ? Workstation ID: [id number] Narrative 09/14/2024 10:19 AM EST INDICATION: ?? [...] bilateral neural foraminal narrowing. Resulting Agency Comment [id number] Procedure Note Pierce Grullon MD - 09/14/2024 [...] possible to obtain thecompleted interpretation. Workstation ID: [id number] us Yuval GUERRA IMSteph MRI PROCEDURES Final R esult * MRI [...] obtain the completed interpretation. ? Workstation ID: [id number] Narrative 09/15/2024 3:24 PM EST EXAMINATION: MRI [...] uncovertebral arthropathy and facet degeneration causing bilateral wadg-jw-[id number] neural foramen narrowing. No canal stenosis. Unchanged [...] or neural foramina narrowing. Resulting Agency Comment [id number] Procedure Note Ravinder Mcmillan MD - 09/15/2024 [...] bilateral uncovertebral arthropathy and facetdegeneration causing bilateral [id number]-fi-ujyttodq neural foramen narrowing.No canal stenosis. Unchanged since [...] possible to obtain thecompleted interpretation. Workstation ID: [id number] us Yuval GUERRA IMG MRI PROCEDURES Final R esult * Hepatitis C Antibody w/Reflex to HCV RNA, Quantitative PCR (05/19/2023 10:31 AM EDT) Hepatitis C Antibody NON-REACT SVETLANA NON-REACT SVETLANA 05/20/2023 7:25 AM EDT [facility] Comment: HCV antibody was non-reactive. There is no laboratory evidence of HCV infection. In most cases, no further action is required. However, if recent HCV exposure is suspected, a test for HCV RNA (test code 56800) is suggested. For additional information please refer to http://education.Novelo.VideoSurf/faq/PCQ29t0 (This link is being provided for informational/ educational purposes only.) Blood Structure of peripheral vein / Unknown 05/19/2023 10:31 AM EDT 05/19/2023 11:20 PM EDT Narrative [facility] - 05/20/2023 7:28 AM EDT FASTING:NO Jeanne GUERRA LAB BLOOD ORDERABLES Final Result [facility] [address] [facility] [address], [place] [address], [employer] [address] [place] [address] * Comprehensive Metabolic Panel (05/19/2023 10:31 AM EDT) [facility] Glucose 93 65 - 139 mg/dL 05/20/2023 2:36 AM EDT [employer] Comment: ? Non-fasting reference interval BUN 12 7 - 25 mg/dL 05/20/2023 2:36 AM EDRue89 Creatinine 0.89 0.60 - 1.26 mg/dL 05/20/2023 2:36 AM EDRue89 eGFR 113 > OR = 60 mL/min/1. 73m2 05/20/2023 2:36 AM [facility] Bun/Creatinine Ratio SEE NOTE: (calc) 05/20/2023 2:36 AM [facility] Comment: ?? Not Reported: BUN and Creatinine are within ?? reference range. ? Sodium 137 135 - 146 mmol/L 05/20/2023 2:36 AM [facility]89 Potassium 4.5 3.5 - 5.3 mmol/L 05/20/2023 2:36 AM [facility] Chloride 101 98 - 110 mmol/L 05/20/2023 2:36 AM [facility] Carbon Dioxide 27 20 - 32 mmol/L 05/20/2023 2:36 AM [facility]DR[facility]89 Calcium 9.6 8.6 - 10.3 mg/dL 05/20/2023 2:36 AM [facility] Protein, Total 6.9 6.1 - 8.1 g/dL 05/20/2023 2:36 AM [facility] Albumin 4.4 3.6 - 5.1 g/dL 05/20/2023 2:36 AM [facility] Globulin 2.5 1.9 - 3.7 g/dL (calc) 05/20/2023 2:36 AM EDT [facility] Albumin/Globuli n Ratio 1.8 1.0 - 2.5 (calc) 05/20/2023 2:36 AM EDT [facility] Bilirubin, Total 0.5 0.2 - 1.2 mg/dL 05/20/2023 2:36 AM EDT [facility] Alkaline Phosphatase 57 36 - 130 U/L 05/20/2023 2:36 AM EDT [facility] AST 19 10 - 40 U/L 05/20/2023 2:36 AM EDT [facility] ALT 29 9 - 46 U/L 05/20/2023 2:36 AM EDT [facility] Blood Structure of peripheral vein / Unknown 05/19/2023 10:31 AM EDT 05/19/2023 11:02 PM EDT Narrative [facility] - 05/20/2023 7:28 AM EDT FASTING:NO Jeanne GUERRA LAB BLOOD ORDERABLES Final Result [facility] [address] [facility] [address], [place] [address], [facility] [address] [place] [address] from Last 3 Months or Most Recently Relevant to Health Maintenance Insurance [facility] HSNO/FREE [facility] Advance Directives Documents on File Type Date Recorded 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 Advance Directive 01/16/2013 12:00 AM Adva nce Care Directives Advance Directive 01/12/2013 12:00 AM Me dical Dec Making (Adv.Dir) * Full Code (Latest Code Status on File) Date Activated Date Inactivated Comments 09/08/2017 8:04 AM 09/08/2017 1:14 PM * Full Code Date Activated Date Inactivated Comments 06/08/2017 3:51 PM 06/11/2017 2:33 PM * Full Code Date Activated Date Inactivated Comments 06/08/2017 3:12 PM 06/08/2017 3:51 PM Care Teams Director Of Infection Control Relationship Specialty Start Date End Date Jeanne Dobson PA [address] [place] [id number] PCP - General Physician Solid Propellant Processor 03/09/22
--- OUTSIDE RECORDS SUMMARY | 2024-11-14 17:26 | XMS_ITS | Referral Summary ---
Author Organization [facility] Address [address] [place] [address] Care Team Providers Care Veterans Rehabilitation Counselor Name Role Phone Jeanne Dobson Primary Care Provider +1- [phone] Encounters Date Type Department Care Team Description 10/26/2024 Orders Only [facility] [address] [facility] [address] [place] [address] Provider, MD Ingrid 10/24/2024 Orders Only [facility] [address] [facility] [address] [place] [address] Provider, Unknown, 10/19/2024 Refill [facility] [address] [place] [address] Jeanne Dobson PA Essential hypertension 10/10/2024 Orders Only [facility] [address] [place] [address] Jeanne Dobson PA Spondylolysis 10/10/2024 myChart Message [facility] 175 [facility] [address] [facility] [place] [address] Olya Eric, RN Oxycodone 10/09/2024 Refill [facility] 175 [facility] [address] [facility] [place] [address] Jeanne Dobson PA Spondylolysis 10/03/2024 3:00 PM EST Follow-Up [facility] [address] [place] [address] Jeanne Dobson PA Spondylolysis (Primary Dx); BMI 40.0-44.9, adult (HCC) [Z68.41]; Encounter for tobacco use screening [Z01.89]; Morbid obesity 09/13/2024 Orders Only [facility] [address] [address] Yuval Franco PA Other intervertebral disc degeneration, lumbar region; Radiculopathy, cervical region 09/13/2024 Orders Only [facility] [address] [address] Yuval Franco PA Other intervertebral disc degeneration, lumbar region; Radiculopathy, cervical region 09/13/2024 Orders Only [facility] [address] [address] Yuval Franco PA Other intervertebral disc degeneration, lumbar region; Radiculopathy, cervical region 09/12/2024 Orders Only [facility] [address] [address] Yuval Franco PA Other intervertebral disc degeneration, lumbar region; Radiculopathy, cervical region 09/12/2024 Orders Only [facility] [address] [address] Yuval Franco PA Other intervertebral disc degeneration, lumbar region; Radiculopathy, cervical region 09/07/2024 Orders Only [facility] [address] [address] Jeanne Dobson PA 09/05/2024 Telephone [facility] [address] [address] Jaenne Dobson PA [facility] Medication Refill 08/30/2024 Telephone 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 Please check with local DMV if need [...] mRNA, PF 07/31/2021,11/11/2020,10/14/2020 Pneumococcal conjugate PCV20 ,polysaccharide [id number] conjugate, adjuvant, PF (Prevnar 20) 07/25/2024 Tetanus [...] Info) Description 11/23/2024 11:20 AM EDT Follow-Up [address] [id number] Jeanne Dobson PA 175 [place] [address] Procedures * Due to [place] state law, this organization might not be [...] to Health Maintenance Results * Due to [place] state law, this organization might not be sharing negative HIV tests. * CT L-Spine, Outside Result (10/24/2024 11:39 AM EDT) Anatomical Region Laterality Modality Other us Unknown Provider AMB EXTERNAL RESULT PROCEDUR ES Final Result * [...] obtain the completed interpretation. ? Workstation ID: [id number] Narrative 09/14/2024 10:19 AM EST INDICATION: ?? [...] bilateral neural foraminal narrowing. Resulting Agency Comment [id number] Procedure Note Pierce Grullon MD - 09/14/2024 [...] possible to obtain thecompleted interpretation. Workstation ID: [id number] us Yuval GUERRA G MRI PROCEDURES Final R esult * MRI [...] obtain the completed interpretation. ? Workstation ID: [id number] Narrative 09/15/2024 3:24 PM EST EXAMINATION: MRI [...] uncovertebral arthropathy and facet degeneration causing bilateral mimu-lv-rskkqmzh neural foramen narrowing. No canal stenosis. Unchanged [...] or neural foramina narrowing. Resulting Agency Comment [id number] Procedure Note Ravinder Mcmillan MD - 09/15/2024 [...] bilateral uncovertebral arthropathy and facetdegeneration causing bilateral lcll-ky-rtiznshz neural foramen narrowing.No canal stenosis. Unchanged since [...] at C3-C4. No intrinsic cord signal abnormality. IRavinder, have reviewed the examination and concurwith the findings as reported or so edited. Trainee: Michelle Dimas If this radiology report contains a blank impression section, it is anincomplete radiology report. Please contact the interpreting radiologistor applicable radiology division as soon as possible to obtain thecompleted interpretation. Workstation ID: [id number] us Yuval GUERRA IMG MRI PROCEDURES Final R esult * Hepatitis C Antibody w/Reflex to HCV RNA, Quantitative PCR (05/19/2023 10:31 AM EDT) Hepatitis C Antibody NON-REACT SVETLANA NON-REACT SVETLANA 05/20/2023 7:25 AM EDT [facility] Comment: HCV antibody was non-reactive. There is no laboratory evidence of HCV infection. In most cases, no further action is required. However, if recent HCV exposure is suspected, a test for HCV RNA (test code 66878) is suggested. For additional information please refer to http://education.AutoBike/faq/RLZ08q5 (This link is being provided for informational/ educational purposes only.) Blood Structure of peripheral vein / Unknown 05/19/2023 10:31 AM EDT 05/19/2023 11:20 PM EDT Narrative [facility] - 05/20/2023 7:28 AM EDT FASTING:NO Jeanne GUERRA LAB BLOOD ORDERABLES Final Result [facility] [address] [facility] 3rd Floor, [place] [address], [employer] [facility] [address] [place] [address] * Comprehensive Metabolic Panel (05/19/2023 10:31 AM EDT) Pathologist [facility] Glucose 93 65 - 139 mg/dL 05/20/2023 2:36 AM EDT [facility] Comment: ? Non-fasting reference interval BUN 12 7 - 25 mg/dL 05/20/2023 2:36 AM EDT [facility] Creatinine 0.89 0.60 - 1.26 mg/dL 05/20/2023 2:36 AM EDT [facility] eGFR 113 > OR = 60 mL/min/1. 73m2 05/20/2023 2:36 AM EDT [facility] Bun/Creatinine Ratio SEE NOTE: 6 22 (calc) 05/20/2023 2:36 AM EDT [facility] Comment: ?? Not Reported: BUN and Creatinine are within ?? reference range. ? Sodium 137 135 - 146 mmol/L 05/20/2023 2:36 AM EDT [employer] Potassium 4.5 3.5 - 5.3 mmol/L 05/20/2023 2:36 AM EDT [facility] Chloride 101 98 - 110 mmol/L 05/20/2023 2:36 AM EDT [employer] [facility] Carbon Dioxide 27 20 - 32 mmol/L 05/20/2023 2:36 AM EDT [employer] [facility] Calcium 9.6 8.6 - 10.3 mg/dL 05/20/2023 2:36 AM EDT [employer] [facility] Protein, Total 6.9 6.1 - 8.1 g/dL 05/20/2023 2:36 AM EDT [employer] [facility] Albumin 4.4 3.6 - 5.1 g/dL 05/20/2023 2:36 AM EDT [employer] [facility] Globulin 2.5 1.9 - 3.7 g/dL (calc) 05/20/2023 2:36 AM EDT [employer] [facility] Albumin/Globuli n Ratio 1.8 1.0 - 2.5 (calc) 05/20/2023 2:36 AM EDT [employer] [facility] Bilirubin, Total 0.5 0.2 - 1.2 mg/dL 05/20/2023 2:36 AM EDFSI [facility] Alkaline Phosphatase 57 36 - 130 U/L 05/20/2023 2:36 AM EDT [employer] [facility] AST 19 10 - 40 U/L 05/20/2023 2:36 AM EDT [employer] [facility] ALT 29 9 - 46 U/L 05/20/2023 2:36 AM MyDROBET [employer] [facility] Blood Structure of peripheral vein / Unknown 05/19/2023 10:31 AM EDT 05/19/2023 11:02 PM EDT Narrative [facility] - 05/20/2023 7:28 AM EDT FASTING:NO Jeanne GUERRA LAB BLOOD ORDERABLES Final Result [facility] [address] [facility] [address] [place] [address], [place] [phone] [facility] [address] [place] [address] from Last 3 Months or Most Recently Relevant to Health Maintenance [place] C[place] [facility] Advance Directives Documents on File Type Date Recorded Patient Free Lance Model Expl anation Advance Directive 01/16/2013 12:00 AM [...] 3:12 PM 06/08/2017 3:51 PM Care Teams Veterans Rehabilitation Counselor Relationship Specialty Start Date End Date Jeanne Dobson PA [address] [place], [place] [address] [address] PCP - General Physician Engine Assembly Supervisor 03/09/22
--- OUTSIDE RECORDS SUMMARY | 2024-11-14 17:26 | XMS_ITS | Encounter Summary ---
Author Organization [facility] Address [address] [place] [address] Care Team Providers Care Helpdesk Analyst Name Role Phone Jeanne Dobson Primary Care Provider +1- [phone] Encounter Details Date Type Department Care Team (Late st Contact Info) Description 10/10/2024 myChart Message [facility] 175 [facility] [address] [place] [address] Olya Eric, RN Oxycodone Social History Tobacco Use Types Packs/Day Years [...] Info) Description 11/23/2024 11:20 AM EDT Follow-Up [facility] 175 [facility] [address] [place] [address] Jeanne Dobson PA [address] [place] [address] documented as of this encounter Visit Diagnoses Not on filedocumented in this encounter Care Teams Helpdesk Analyst Relationship Specialty Start Date End Date Jeanne Dobson PA [address] [place] [address] PCP - General Physician Culinary Arts Instructor 03/09/22 documented as of this encounter
--- OUTSIDE RECORDS SUMMARY | 2024-11-14 17:26 | XMS_ITS | Clinical Summary ---
Author Organization [facility] Address [address] [place] [address] Care Team Providers Care Production Analyst Name Role Phone Unavailable Primary Care Provider [...]
--- OUTSIDE RECORDS SUMMARY | 2024-11-14 17:26 | XMS_ITS | Clinical Summary ---
Author Organization [facility], Address [address] [place] [address] Phone Care Team Providers Care Resident Physician In Radiology Name Role Phone Jeanne Dobson Primary Care [...] - 19+ 3-dose series) 06/27 Influenza Vaccine (Season Ended) [address] [place] [id number] [place] Care Teams Resident Physician In Radiology Relationship Specialty Start Date End Date Jeanne Dobson PA [address] [place] [address] [place] [address] PCP - General Nutrition 05/13/21
--- OUTSIDE RECORDS SUMMARY | 2024-11-14 17:27 | XMS_ITS | Data Portability ---
Author Organization [facility] Address [address] [place] [address] Care Team Providers Care Marine Equipment Design Engineer Name Role Phone HELENE GORDILLO Primary Care Provider HELENE GORDILLO Referring Provider [phone] SAM JOHNSON Primary Care Provider Assessment No [...] -- PATIE NT: ELSIE KEEN 840 LOC: [facility] [place] #: [id number] AGE/S X: 34/M ROOM: RE09/[address]: Robe Alex DO : 06/27 BED: DIS: STATU S: DEP REF PROCE DURE/ OPERA TION PERFO RMED: EXCIS ION SPEC #: [id number] RECD: 09/08-0 911 STATU S: RUBIA PONCE #: [id number] ALBERTA: 09/07-[address]: Mary Ellen carrasquilloHarveyneida fragoso DO ENTER ED: 09/08-0 913 SP TYPE: Surgi chica OTHR DR: Helene Gordillo MD TISSU E:Ski n ----- ----- ----- ----- ----- ----- ----- ----- ----- ----- ----- ----- ----- ----- ----- ----- ----- ----- -- Final Diagn osis A. SKIN, LEFT SCALP , EXCIS ION: - Epide rmal inclu kelsi cyst. B. SKIN, RIGHT SCALP , EXCIS ION: - Epide rmal inclu kelsi cyst. C. SKIN LESIO N, RIGHT NECK, EXCIS ION: - [place] l melan ocyti c nevus . Gross Exami natio n A. Recei les in forma simi label ed [facility], 06/27 and left scalp , cyst . It consi sts of an a well- circu mscri bed cysti c lesio n measu ring 0.7 x 0.4 x 0.4 cm. Bisec ana lilia, AP, one casse tte. B. Recei les in forma simi label ed [facility] Front [facility], 06/27 and rig t [...] ----- ----- ----- ----- -- Not Available [facility] [address] [place], [address], 09/11/2019 12:25:56 Result Notes None recorded. Problems No Known Problems Procedures Surgical History Date Name Laterality Status Provider Name and Address Organization Details Recorded Time 0 excision of cyst completed Denise Blas [facility] 09/20/2019 15:18:59 Imaging Results None recorded. Procedure Notes None recorded. Medical Equipment None Reported. Allergies Allergen ID Allergen Name Allergen Category Reaction Reaction Severity Criticality Documentation Date Start Date Code Code System Note Provider Name and Address Organization Details Recorded Time 359333 banana extract food,medi cation itching mild Not available 08/14/2019 75465 9 RxNorm [facility] NAGI Mosqueda [facility] 0 09:32:35 576484 aluminum environme nt,medica tion rash moderate Not available 08/14/2019 77466 04 [facility] 0 09:33:16 Medications Name Sig Start [...] Address Organization Details Last Updated DateTime 0 612982. 83 g 162.56 cm 40.7 kg/m2 87 /min 132 mm[Hg] 84 mm[Hg] Hanna Mosqueda [facility] 0 09:31:49 Date Recorded Body height Body mass index (BMI) Body weight Provider Name and Address Organization Details Last Updated DateTime 09/22/2019 162.56 cm 40.9 kg/m2 188568.42 g Olya Grayr [facility] 09/22/2019 13:00:46 Social History None recorded. Functional Status None recorded. Mental Status None recorded. Family History Nothing Reported. Medical History No medical history recorded. Past Encounters Encounter ID Performer Location Encounter Start Date Encounter Closed Date Diagnosis/Indication Diagnosis SNOMED-CT Code Diagnosis ICD10 Code Diagnosis Note [id number] Denise Lobato NP [facility] [address] [facility],[address] [place] [address] 05/06/2018 09:44:02 05/06/2018 11:24:25 [id number] Silvio carrasquillo DO [facility] [address] [facility] [address] 08/14/2019 09:00:48 08/14/2019 09:59:25 Cyst of scalp 766029549 L72.9 book for local excision Consent obtained [id number] Silvio carrasquillo DO [facility] [address] [facility] [address] 09/22/2019 12:57:49 09/22/2019 13:04:10 Postoperative visit 598171268 Z09 OK to D/C and follow up prn Health Concerns Section Related Observation LastModified by Organization Detai ls LastModified Time None Recorded Concern Status LastModified by Organization Details LastModified Time None Recorded Advance Directives Directive None Recorded Payers Encounter Date Sequence Insurance Name Policy Number Policy Drake Covered Member ID Drake Member ID Guarantor Name 08/14/2019 1 [employer] BLUE [employer] (PPO) [id number] Yuval Faust [id number] 1 [id number] Yuval Faust 08/14/2019 1 [place] Yuval Faust [id number] Yuval Reyese 09/22/2019 1 BCBS-ID BLUE [facility] (PPO) [id number] Yuval Faust [id number] 1 [id number] Yuval Faust 09/22/2019 1 [place] Yuval Faust [id number] Yuval Faust Notes Date Note Type Note Provider Name and Address Organization Details Recorded Time 08/14/2019 text/html 34 yo M with history o2 scalp cysts 3x3 and 1x1 cysts. No erythema or induration. Denies any pain, but notes discomfort due to location. Silvio Eason DO [address] [place] [address] [place], [address], [facility] 08/18/2019 13:02:37 09/22/2019 text/html 2 week follow-up from surgery fro scalp cysts removal. No complaints. Incisions healing well. Path cysts. Silvio Eason DO [address] [place] [address] [place], [address], [facility] 09/22/2019 13:15:27
== END 2024-11-14 14:44 | disposition home or self-care (01) ==
LOC: HO.HNS 14:20
PROVIDERS: PCP Physician Assistant; Visit Provider Physician Assistant
DX: Z98.1 Arthrodesis status (principal)
CPT/HCPCS: 99024

== ENCOUNTER → 2024-11-14 14:19 | Outpatient (BNVA) | payer MEDICAID, SELFPAY | PROVIDERS: PCP Physician Assistant; Visit Provider Physician Assistant | DX: Z47.89 Encounter for other orthopedic aftercare (principal); Z98.1 Arthrodesis status | CPT/HCPCS: 99212 ==

== ENCOUNTER 2024-12-26 08:45 | Outpatient (REF) | payer MEDICAID, SELFPAY ==
--- NOTE | ~2024-12-26 | XR_ITS ---
EXAMINATION: X-ray lumbar spine. CLINICAL INFORMATION: Status post arthrodesis. TECHNIQUE: AP and lateral views. Lateral views during flexion and extension position. COMPARISON: September 29, 2024. FINDINGS: Transpedicular screws at L3-4, bilaterally with the minimal loosening at the L4. Intervertebral disc spacer placement at L3-4, L4-5 and L5-S1 level. No acute cortical disruption. Grade 1 anterolisthesis L5-S1 in neutral position and persists during flexion and or extension position. Status post removal transpedicular screws at L5-S1.. No malalignment during flexion and or extension position. Rudimentary ribs at T12. XR/XR lumbar spine 4V min IMPRESSION: Status post removal transpedicular screws L5-S1 and new position transpedicular screws at L3-4. Grade 1 anterolisthesis L5-S1 without gross instability. Minimal loosening, transpedicular screws at L3. Electronically signed by: Jeovanny Hatfield MD 12/26/2024 02:54 PM EDT
--- OUTSIDE RECORDS SUMMARY | 2024-12-28 08:56 | XMS_ITS | Clinical Summary ---
Author Organization [facility] Address [address] [place] [address] Care Team Providers Care Banana Grader Name Role Phone Jeanne Dobson Primary Care Provider [phone] Allergies Active Allergy Reactions Criticality Noted Date [...] MG) BY MOUTH EVERY NIGHT 30 tablet 12/28/19 25 Active atorvastatin (LIPITOR) 10 mg tabletIndications :Hyperlipidemia, unspecified hyperlipidemia type TAKE 1 TABLET(10 MG) BY MOUTH EVERY NIGHT 30 tablet 2 08/22/19 25 025 Discontinued atorvastatin (LIPITOR) 10 mg tabletIndications :Hyperlipidemia, unspecified hyperlipidemia type TAKE 1 TABLET(10 MG) BY MOUTH EVERY NIGHT 30 tablet 12/01/19 25 025 Discontinued Active Problems Problem Noted [...] the patient, his and Terri, 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 Terri suggested the patient to check with [employer] leaders to see what type of accomodation they can make for him. After our conversation with Terri was completed, I also extensively discussed with the patient and his regarding various other vocational options. Seizure and fall precaution No driving until seizure free for 6 months in [place]. Please check with local DMV if need [...] and without contrast. Spoke to Dr. Scott, KJ attending on service regarding this admission. Assessment & Plan (05/11/2017 10:43 AM EDT): Wean off Topiramate by 50 mg weekly. Seizure and fall precaution Call me if there are any concerns for recurrent seizures while weaning or after completing the weaning. Encounters Date Type Department Care Team Description 12/27/2024 myChart Message [address] [phone] Elizabeth Biggs RN Labs needed 12/27/2024 Orders Only [address] [address] Jeanne Dobson PA Hyperlipidemia, unspecified hyperlipidemia type (Primary Dx) 12/27/[address] [address] Jeanne Dobson PA Hyperlipidemia, unspecified hyperlipidemia type 11/30/2024 myChart Message [address] [address] Olya Eric, RN Lipitor 11/30/2024 Refill [facility] [address] [place] [address] Jeanne Dobson PA Hyperlipidemia, unspecified hyperlipidemia type 11/23/2024 11:20 AM EDT Follow-Up [facility] [address] [place] [address] Jeanne Dobson PA Morbid obesity (HCC) (Primary Dx); Encounter for tobacco use screening; Moderate persistent asthma, unspecified whether complicated (HCC); 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 Orders Only [facility] [address] [facility] [address] [place] [address] Provider, Unknown, 10/24/2024 Orders Only [facility] [address] [facility] [address] [place] [address] Provider, Ingrid, 10/19/2024 Refill [facility] [address] [place] [address] Jeanne Dobson PA Essential hypertension 10/10/2024 Orders Only [facility] [address] [facility] [address] [place] [address] Jeanne Dobson PA Spondylolysis 10/10/2024 myChart Message [facility] [address] [place] [address] Olya Eric, RN Oxycodone 10/09/2024 Refill [facility] 175 [facility] [place] [address] Jeanne Dobson PA Spondylolysis 10/03/2024 3:00 PM EST Follow-Up [facility] [address] [place] [address] Jeanne Dobson PA Spondylolysis (Primary Dx); BMI 40.0-44.9, adult (HCC) [Z68.41]; Encounter for tobacco use screening [Z01.89]; Morbid obesity from Last 3 Months Immunizations Immunization Administration Dates Next Due Covid-19 Monovalent Vaccine, Moderna, mRNA, PF 07/31/2021,11/11/2020,10/14/2020 Pneumococcal conjugate PCV20 ,polysaccharide [id number] conjugate, adjuvant, PF (Prevnar 20) 07/25/2024 Tetanus [...] Info) Description 01/18/2025 9:40 AM EDT Follow-Up [facility] 175 [facility] [address] [place] [address] Jeanne Dobson PA [address] [place] [address] Health Maintenance Due Date Last Done Comments [...] Varicella Vaccines Discontinued Procedures * Due to [place] [employer] law, this organization might not be sharing [...] to Health Maintenance Results * Due to [place] [employer] law, this organization might not be sharing negative HIV tests. * CT L-Spine, Outside Result (10/24/2024 11:39 AM EDT) Anatomical Region Laterality Modality Other us Unknown Provider MD ISLAS EXTERNAL RESULT PROCEDUR ES Final Result * PROCEDURE - SCANNED (10/24/2024 10:59 AM EDT) us Unknown Provider SCANNED PROCEDURES Final Res ult * Hepatitis C Antibody w/Reflex to HCV RNA, Quantitative PCR (05/19/2023 10:31 AM EDT) Pathologist [facility] Hepatitis C Antibody NON-REACT SVETLANA NON-REACT SVETLANA 05/20/2023 7:25 AM EDT [facility] Comment: HCV antibody was non-reactive. There is no laboratory evidence of HCV infection. In most cases, no further action is required. However, if recent HCV exposure is suspected, a test for HCV RNA (test code 67096) is suggested. For additional information please refer to http://education.Carticipate/faq/JGB81m5 (This link is being provided for informational/ educational purposes only.) Blood Structure of peripheral vein / Unknown 05/19/2023 10:31 AM EDT 05/19/2023 11:20 PM EDT Narrative [facility] - 05/20/2023 7:28 AM EDT FASTING:NO us Jeanne GUERRA LAB BLOOD ORDERABLES Final Result [facility] [address] [facility] 3rd Floor, [place] [address], [employer] [facility] [address] [place] [address] * Comprehensive Metabolic Panel (05/19/2023 10:31 AM EDT) Pathologist [facility] Glucose 93 65 - 139 mg/dL 05/20/2023 2:36 AM EDT [facility] Comment: ? Non-fasting reference interval BUN 12 7 - 25 mg/dL 05/20/2023 2:36 AM EDT [facility] Creatinine 0.89 0.60 - 1.26 mg/dL 05/20/2023 2:36 AM EDT [facility] eGFR 113 > OR = 60 mL/min/1. 73m2 05/20/2023 2:36 AM EDT [facility] Bun/Creatinine Ratio SEE NOTE: 6 22 (calc) 05/20/2023 2:36 AM EDT [facility] Comment: ?? Not Reported: BUN and Creatinine are within ?? reference range. ? Sodium 137 135 - 146 mmol/L 05/20/2023 2:36 AM EDT [facility] Potassium 4.5 3.5 - 5.3 mmol/L 05/20/2023 2:36 AM EDT [facility] Chloride 101 98 - 110 mmol/L 05/20/2023 2:36 AM EDT [facility] Carbon Dioxide 27 20 - 32 mmol/L 05/20/2023 2:36 AM EDT [facility] Calcium 9.6 8.6 - 10.3 mg/dL 05/20/2023 2:36 AM EDT [facility] Protein, Total 6.9 6.1 - 8.1 g/dL 05/20/2023 2:36 AM ED1jiajie Albumin 4.4 3.6 - 5.1 g/dL 05/20/2023 2:36 AM EDT [facility] Globulin 2.5 1.9 - 3.7 g/dL (calc) 05/20/2023 2:36 AM ED1jiajie Albumin/Globuli n Ratio 1.8 1.0 - 2.5 (calc) 05/20/2023 2:36 AM [employer] Bilirubin, Total 0.5 0.2 - 1.2 mg/dL 05/20/2023 2:36 AM [employer] Alkaline Phosphatase 57 36 - 130 U/L 05/20/2023 2:36 AM [employer] [facility] AST 19 10 - 40 U/L 05/20/2023 2:36 AM [employer] ALT 29 9 - 46 U/L 05/20/2023 2:36 AM [employer] Blood Structure of peripheral vein / Unknown 05/19/2023 10:31 AM EDT 05/19/2023 11:02 PM EDT Narrative [facility] - 05/20/2023 7:28 AM EDT FASTING:NO us Jeanne GUERRA LAB BLOOD ORDERABLES Final Result [facility] [address] [facility] 3rd Floor, [place] [address], [place] [phone] [facility] [address] [place] [address] from Last 3 Months or Most Recently Relevant to Health Maintenance Insurance [facility] HSNO/FREE CARE [facility] Advance Directives Documents on File Type Date Recorded Patient Rn Hospice Expl anation Advance Directive 01/16/2013 12:00 AM [...] 3:12 PM 06/08/2017 3:51 PM Care Teams Banana Grader Relationship Specialty Start Date End Date Jeanne Dobson PA [address] [place] [address] PCP - General Physician Tree Pruner 03/09/22
--- OUTSIDE RECORDS SUMMARY | 2024-12-28 08:56 | XMS_ITS | Clinical Summary ---
Author Organization [facility] Address [address] [place] [address] Care Team Providers Care Product Strategy Director Name Role Phone Unavailable Primary Care Provider [...]
--- OUTSIDE RECORDS SUMMARY | 2024-12-28 08:56 | XMS_ITS | Data Portability ---
Author Organization [facility], [employer] [facility] Address [address] [place] [address] Care Team Providers Care Nursing Unit Coordinator Name Role Phone ESTRELLA GRODILLO Primary Care Provider DUY ESTRELLA Referring Provider Assessment No assessment recorded. Plan of Treatment Reminders Order Date Submit Date Provider Last Modified By Organization Details Last Modified Time Details Appointments None recorded. Lab drug of abuse panel, urine - chain of custody - 10 drug screen [id number] [facility] Patient Reg, [address] [place], [address], 8 17:27:37 Referral None recorded. Procedures None [...] 8 93 /min 162.56 cm 36 kg/m2 54900.4 g 124 mm[Hg] 86 mm[Hg] Shashi Lobato NP [facility] 8 10:58:29 Social History None recorded. Functional Status None recorded. Mental Status None recorded. Family History Nothing Reported. Medical History No medical history recorded. Past Encounters Encounter ID Performer Location Encounter Start Date Encounter Closed Date Diagnosis/Indication Diagnosis SNOMED-CT Code Diagnosis ICD10 Code Diagnosis Note [id number] SHASHI UP NP Occupatio [facility] [address] [place] [address] 05/06/2018 09:44:02 05/06/2018 11:24:25 History and physical examination, pre-employment 306639572 Z02.1 [id number] Silvio carrasquillo DO [facility] [address],[place] [address] 08/14/2019 09:00:48 08/14/2019 09:59:25 [id number] Silvio carrasquillo [facility] [address] [address] 09/22/2019 12:57:49 09/22/2019 13:04:10 Health Concerns Section Related Observation LastModified by Organization Detai ls LastModified Time None Recorded Concern Status LastModified by Organization Details LastModified Time None Recorded Advance Directives Directive None Recorded Payers Insurance Date Sequence Insurance Name Policy Number Policy Drake Covered Member ID Drake Member ID Guarantor Name 08/18/2019 [employer] Yuval Faust [employer] Yuval Reyeslakisha 06/01/2023 1 MEDICAID-[place]: [facility] Yuval Reyeslakisha [id number] Yuval Amylakisha 06/01/2023 1 BCBS-[place] BLUE SHIELD ([place]O) [id number] Yuval Faust [id number] 1 [id number] Yuval Faust Notes Date Note Type Note Provider Name and Address Organization Details Recorded Time 05/06/2018 text/html Patient presents to the office for a pre-employment physical as a new employee for [employer]. He believes, based upon the job description that was provided to him that he can handle all duties and responsibilities of the job. He denies any history of work related injuries. Shashi Lobato NP [facility] 05/06/2018 10:58:43
--- OUTSIDE RECORDS SUMMARY | 2024-12-28 08:56 | XMS_ITS | Encounter Summary ---
Author Organization [facility] Address [address] [place] [address] Care Team Providers Care Supervisor Fiberglass Boat Assembly Name Role Phone Jeanne Dobson Primary Care Provider [phone]- [phone] Encounter Details Date Type Department Care Team (Late st Contact Info) Description 12/27/2024 myChart Message [facility] [address] [facility] [address] [place] [address] Elizabeth Biggs RN Labs needed Social History Tobacco Use Types Packs/Day Years [...] Info) Description 01/18/2025 9:40 AM EDT Follow-Up [facility] 175 [facility] [address] [place] [address] Jeanne Dobson PA [address] [place] [address] documented as of this encounter Visit Diagnoses Not on filedocumented in this encounter Care Teams Supervisor [employer] Relationship Specialty Start Date End Date Jeanne Dobson PA [address] [place] [address] PCP - General Physician Litigation Legal Secretary 03/09/22 documented as of this encounter
--- OUTSIDE RECORDS SUMMARY | 2024-12-28 08:56 | XMS_ITS | Clinical Summary ---
Author Organization [facility], Address [address] [place] [address] Phone Care Team Providers Care Assembled Wood Products Repairer Name Role Phone Jeanne Dobson Primary Care [...] 2004 Influenza Vaccine (Season Ended) 2025 [facility] [place] [id number] Medicaid [place] Care Teams Assembled Wood Products Repairer Relationship Specialty Start Date End Date Jeanne Dobson PA [address] [place] [address] [place] [address] PCP - General Nutrition 05/13/21
--- OUTSIDE RECORDS SUMMARY | 2024-12-28 08:56 | XMS_ITS | Referral Summary ---
Author Organization [facility] Address [address] [place] [address] Care Team Providers Care Car Cleaner Name Role Phone Jeanne Dobson Primary Care Provider +1- [phone] Encounters Date Type Department Care Team Description 12/27/2024 myChart Message [facility] 175 [facility] 175 [place] [address] Elizabeth Biggs RN Labs needed 12/27/2024 Orders Only [facility] 175 [facility] 175 [place] [address] Jeanne Dobson PA Hyperlipidemia, unspecified hyperlipidemia type (Primary Dx) 12/27/2024 Refill [facility] 175 [facility] 175 [place] [address] Jeanne Dobson PA Hyperlipidemia, unspecified hyperlipidemia type 11/30/2024 myChart Message [facility] 175 [facility] 175 [place] [address] Olya Eric, RN Lipitor 11/30/2024 Refill [facility] 175 [facility] [address] [place] [address] Jeanne Dobson PA Hyperlipidemia, unspecified hyperlipidemia type 11/23/2024 11:20 AM EDT Follow-Up [facility] 175 [facility] 175 [place] [address] Jeanne Dobson PA Morbid obesity (HCC) (Primary Dx); Encounter for tobacco use screening; Moderate persistent asthma, unspecified whether complicated (HCC); 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 Orders Only [facility] [address] [facility] [address] [place] [address] Provider, UnknownMD 10/24/2024 Orders Only [facility] [address] [facility] [address] [place] NAG[place] ORDOÑEZ [address] Provider, MD Ingrid 10/19/2024 Refill [facility] 175 [facility] [address] [place] [address] Jeanne Dobson PA Essential hypertension 10/10/2024 Orders Only [facility] 175 [facility] 175 [place] [address] Jeanne Dobson PA Spondylolysis 10/10/2024 myChart Message [facility] 175 [facility] [address] [place] [address] Olya Eric, RN Oxycodone 10/09/2024 Refill [facility] 175 [facility] 175 [place] [address] Jeanne Dobson PA Spondylolysis 10/03/2024 3:00 PM EST Follow-Up [facility] 175 [facility] 175 [place] [address] Jeanne Dobson PA Spondylolysis (Primary Dx); BMI 40.0-44.9, adult ([facility]) [Z68.41]; Encounter for tobacco use screening [...] with the patient, his and Terri, his country manager who connected with us over the phone regarding the seizure and fall precaution and he needs to follow to ensure safety. Terri suggested the patient to check with [employer] leaders to see what type of accomodation [...] mRNA, PF 07/31/2021,11/11/2020,10/14/2020 Pneumococcal conjugate PCV20 ,polysaccharide [id number] conjugate, adjuvant, PF (Prevnar 20) 07/25/2024 Tetanus [...] Info) Description 01/18/2025 9:40 AM EDT Follow-Up [address] MED[facility] 175 [place] [address] Jeanne Dobson PA [address] [place] [address] Procedures * Due to [place] state law, this organization might not be [...] Health Maintenance Results * Due to [place] state law, this organization might not be sharing negative HIV tests. * CT L-Spine, Outside Result (10/24/2024 11:39 AM EDT) Anatomical Region Laterality Modality Other us Unknown Provider MD AMB EXTERNAL RESULT PROCEDUR ES Final Result * PROCEDURE - SCANNED (10/24/2024 10:59 AM EDT) us Unknown Provider MD SCANNED PROCEDURES Final Res ult * Hepatitis C Antibody w/Reflex to HCV RNA, Quantitative PCR (05/19/2023 10:31 AM EDT) Hepatitis C Antibody NON-REACT SVETLANA NON-REACT SVETLANA 05/20/2023 7:25 AM EDT [facility] Comment: HCV antibody was non-reactive. There is no laboratory evidence of HCV infection. In most cases, no further action is required. However, if recent HCV exposure is suspected, a test for HCV RNA (test code 90646) is suggested. For additional information please refer to http://education.ZarthCode/faq/IVH57a5 (This link is being provided for informational/ educational purposes only.) Blood Structure of peripheral vein / Unknown 05/19/2023 10:31 AM EDT 05/19/2023 11:20 PM EDT Narrative [facility] - 05/20/2023 7:28 AM EDT FASTING:NO us Jeanne GUERRA LAB BLOOD ORDERABLES Final Result [facility] [address] [facility] 3rd Floor, [place] [address], [place] [phone] [facility] [address] [place] [address] * Comprehensive Metabolic Panel (05/19/2023 10:31 AM EDT) [facility] Glucose 93 65 - 139 mg/dL 05/20/2023 2:36 AM EDT [employer] [facility] Comment: ? Non-fasting reference interval BUN 12 7 - 25 mg/dL 05/20/2023 2:36 AM [employer] [facility] Creatinine 0.89 0.60 - 1.26 mg/dL 05/20/2023 2:36 AM [employer] eGFR 113 > OR = 60 mL/min/1. 73m2 05/20/2023 2:36 AM [employer] [facility] Bun/Creatinine Ratio SEE NOTE: 6 (calc) 05/20/2023 2:36 AM [employer] [facility] Comment: ?? Not Reported: BUN and Creatinine are within ?? reference range. ? Sodium 137 135 - 146 mmol/L 05/20/2023 2:36 AM [employer] [facility] Potassium 4.5 3.5 - 5.3 mmol/L 05/20/2023 2:36 AM [employer] [place] [employer] Chloride 101 98 - 110 mmol/L 05/20/2023 2:36 AM [employer] [facility] Carbon Dioxide 27 20 - 32 mmol/L 05/20/2023 2:36 AM [employer] [facility] Calcium 9.6 8.6 - 10.3 mg/dL 05/20/2023 2:36 AM [employer] [facility] Protein, Total 6.9 6.1 - 8.1 g/dL 05/20/2023 2:36 AM [employer] [facility] Albumin 4.4 3.6 - 5.1 g/dL 05/20/2023 2:36 AM [employer] [place] [employer] Globulin 2.5 1.9 - 3.7 g/dL (calc) 05/20/2023 2:36 AM [employer] [place] [employer] Albumin/Globuli n Ratio 1.8 1.0 - 2.5 (calc) 05/20/2023 2:36 AM [employer] [facility] Bilirubin, Total 0.5 0.2 - 1.2 mg/dL 05/20/2023 2:36 AM EDT [facility] Alkaline Phosphatase 57 36 - 130 U/L 05/20/2023 2:36 AM EDT [facility] AST 19 10 - 40 U/L 05/20/2023 2:36 AM EDT [facility] ALT 29 9 - 46 U/L 05/20/2023 2:36 AM EDT [facility] Blood Structure of peripheral vein / Unknown 05/19/2023 10:31 AM EDT 05/19/2023 11:02 PM EDT Narrative [facility] - 05/20/2023 7:28 AM EDT FASTING:NO Jeanne GUERRA LAB BLOOD ORDERABLES Final Result [facility] [address] [facility] [address], [place] [address], [employer] [facility] [address] [place] [address] from Last 3 Months or Most Recently Relevant to Health Maintenance Insurance [facility] HSNO/FREE CARE [facility] Advance Directives Documents on File Type Date Recorded Patient Senior Staff Accountant Expl anation Advance Directive 01/16/2013 12:00 AM [...] 3:12 PM 06/08/2017 3:51 PM Care Teams Car Cleaner Relationship Specialty Start Date End Date Jeanne Dobson PA [address] [place] [address] [place] [address] PCP - General Physician High Pressure Operator 03/09/22
--- OUTSIDE RECORDS SUMMARY | 2024-12-28 08:56 | XMS_ITS | Data Portability ---
Author Organization [facility] Address [address] [place] [address] Care Team Providers Care Sugar Presser Name Role Phone HELENE LANGFORD Primary Care Provider [phone] HELENE LANGFORD Referring Provider SAM JOHNSON Primary [...] -- PATIE NT: ELSIE KEEN 840 LOC: [facility] U #: [id number] AGE/S X: 34/M ROOM: RE09/[address]: Robe Alex DO : 06/27 BED: DIS: STATU S: DEP REF PROCE DURE/ OPERA TION PERFO RMED: EXCIS ION SPEC #: [id number] RECD: 09/08-0 911 STATU S: RUBIA PONCE #: [id number] ALBERTA: 09/07-[address]: Mary [...] LESIO N, RIGHT NECK, EXCIS ION: - [place] l melan ocyti c nevus . Gross Exami natio n A. Recei les in forma simi label ed [facility] Front [facility], 06/27 and left scalp , cyst . It consi sts of an a well- circu mscri bed cysti c lesio n measu ring 0.7 x 0.4 x 0.4 cm. Bisec ana lilia, AP, one casse tte. B. Recei les in forma simi label ed [facility] Front [facility], 06/27 and rig t [...] ----- ----- ----- ----- -- Not Available [facility] [address] [place], [address], 09/11/2019 12:25:56 Result Notes None recorded. Problems No Known Problems Procedures Surgical History Date Name Laterality Status Provider Name and Address Organization Details Recorded Time 0 excision of cyst completed Shashi Blas [facility] 09/20/2019 15:18:59 Imaging Results None recorded. Procedure Notes None recorded. Medical Equipment None Reported. Allergies Allergen ID Allergen Name Allergen Category Reaction Reaction Severity Criticality Documentation Date Start Date Code Code System Note Provider Name and Address Organization Details Recorded Time 602268 banana extract food,medi cation itching mild Not available 08/14/2019 71136 9 RxNorm [facility] NAGI Mosqueda [facility] 0 09:32:35 266855 aluminum environme nt,medica tion rash moderate Not available 08/14/2019 49656 04 [facility] 0 09:33:16 Medications Name Sig Start [...] Address Organization Details Last Updated DateTime 0 253925. 83 g 162.56 cm 40.7 kg/m2 87 /min 132 mm[Hg] 84 mm[Hg] Hanna Mosqueda [place] [facility] 0 09:31:49 Date Recorded Body height Body mass index (BMI) Body weight Provider Name and Address Organization Details Last Updated DateTime 09/22/2019 162.56 cm 40.9 kg/m2 499649.42 g Olya Mohanasseur [facility] 09/22/2019 13:00:46 Social History None recorded. Functional Status None recorded. Mental Status None recorded. Family History Nothing Reported. Medical History No medical history recorded. Past Encounters Encounter ID Performer Location Encounter Start Date Encounter Closed Date Diagnosis/Indication Diagnosis SNOMED-CT Code Diagnosis ICD10 Code Diagnosis Note [id number] SHASHI UP NP [facility] [address] [facility],[address] [place] [address] 05/06/2018 09:44:02 05/06/2018 11:24:25 [id number] Silvio carrasquillo DO [facility] [address],[facility] [place] [address] 08/14/2019 09:00:48 08/14/2019 09:59:25 Cyst of scalp 007988258 L72.9 book for local excision Consent obtained [id number] Silvio carrasquillo DO [facility] [address],[facility] [place] [address] 09/22/2019 12:57:49 09/22/2019 13:04:10 Postoperative visit 539875609 Z09 OK to D/C and follow up prn Health Concerns Section Related Observation LastModified by Organization Detai ls LastModified Time None Recorded Concern Status LastModified by Organization Details LastModified Time None Recorded Advance Directives Directive None Recorded Payers Insurance Date Sequence Insurance Name Policy Number Policy Drake Covered Member ID Drake Member ID Guarantor Name 08/18/2019 [employer] Yuval Faust LEO Faust 06/01/2023 1 [place] Yuval Faust [id number] Yuval Faust 06/01/2023 1 [employer]-[place] [employer] [place]) [id number] Yuval Faust [id number] Yuval Faust Notes Date Note Type Note Provider Name and Address Organization Details Recorded Time 08/14/2019 text/html 34 yo M with history o2 scalp cysts 3x3 and 1x1 cysts. No erythema or induration. Denies any pain, but notes discomfort due to location. Silvio Eason DO [address] [place] [address] NAGI Schaefer, [phone], [facility] 08/18/2019 13:02:37 09/22/2019 text/html 2 week follow-up from surgery fro scalp cysts removal. No complaints. Incisions healing well. Path cysts. Silvio Eason DO [address] [place], [place] [address], [address], [facility] 09/22/2019 13:15:27
--- OUTSIDE RECORDS SUMMARY | 2024-12-28 08:56 | XMS_ITS | Encounter Summary ---
Author Organization [facility] Address [address] [place] [address] Care Team Providers Care Machine Group Leader Name Role Phone Jeanne Dobson Primary Care Provider +1- [phone] Encounter Details Date Type Department Care Team (Late st Contact Info) Description 11/30/2024 myChart Message [facility] 175 [facility] [address] [place] [address] Olya Eric, RN Lipitor Social History Tobacco [...] Info) Description 01/18/2025 9:40 AM EDT Follow-Up [facility] 175 [facility] [address] [place] [address] Jeanne Dobson PA [address] [place] [address] documented as of this encounter Visit Diagnoses Not on filedocumented in this encounter Care Teams Machine Group Leader Relationship Specialty Start Date End Date Jeanne Dobson PA [address] [place] [address] PCP - General Physician Surface Plate Inspector 8/1/22 documented as of this encounter
--- OUTSIDE RECORDS SUMMARY | 2024-12-28 08:56 | XMS_ITS | Encounter Summary ---
Author Organization [facility] Address [address] [place] [address] Care Team Providers Care Inside B2B Sales Name Role Phone Jeanne Dobson Primary Care Provider +1- [phone] Encounter Details Date Type Department Care Team (Late st Contact Info) Description 12/27/2024 Orders Only [facility] 175 [facility] 175 [place] [address] Jeanne Dobson PA [address] [place] [address] Hyperlipidemia, unspecified hyperlipidemia type (Primary Dx) Social History Tobacco Use Types Packs/Day Years [...] Info) Description 01/18/2025 9:40 AM EDT Follow-Up [facility] 175 [facility] [address] [place] [address] Jeanne Dobson PA [address] [place] [address] Scheduled Orders Name Type Priority Associated Diagnoses Orde r Schedule Lipid Panel w/Reflex to Direct LDL Lab Routine Hyperlipidemia, unspecified hyperlipidemia type Expected: 03/29/2025 (Approximate), Expires: 12/27/2025 documented as of this encounter Visit Diagnoses Diagnosis Hyperlipidemia, unspecified hyperlipidemia type- Primary documented in this encounter Care Teams Inside B2B Sales Relationship Specialty Start Date End Date Jeanne Dobson PA [address] [place] [address] PCP - General Physician Screen Printing Supervisor 03/09/22 documented as of this encounter
--- OUTSIDE RECORDS SUMMARY | 2024-12-28 08:56 | XMS_ITS | Encounter Summary ---
Author Organization [facility] Address [address] [place] [address] Care Team Providers Care Classified Advertising Clerk Name Role Phone Jeanne Dobson Primary Care Provider +1- [phone] Reason for Visit * Reason Comments Med Refill Encounter Details Date Type Department Care Team (Late st Contact Info) Description 12/27/2024 Refill [facility] 175 [facility] 175 [place] [address] Jeanne Dobson PA [address] [place] [address] Hyperlipidemia, unspecified hyperlipidemia type Social History Tobacco [...] Info) Description 01/18/2025 9:40 AM EDT Follow-Up [facility] 175 [facility] [address] [place] [address] Jeanne Dobson PA [address] [place] [address] documented as of this encounter Visit Diagnoses Diagnosis Hyperlipidemia, unspecified hyperlipidemia type documented in this encounter Care Teams Classified Advertising Clerk Relationship Specialty Start Date End Date Jeanne Dobson PA [address] [place] [address] PCP - General Physician Screen Printing Paster 03/09/22 documented as of this encounter
== END 2024-12-26 08:46 | disposition home or self-care (01) ==
LOC: HO.HOSX 08:45
PROVIDERS: Visit Provider Physician Assistant
DX: Z98.1 Arthrodesis status (principal)
CPT/HCPCS: 72110; 99212

== ENCOUNTER 2024-12-26 14:31 | Outpatient (AMB) | payer MEDICAID, SELFPAY ==
--- NOTE | 2024-12-26 14:43 | HO.SPINEOV ---
Intake Visit Reasons: 2nd post op with xrays Intake Note: Mr. Faust is here today for his 2nd post op with xrays. Dovetail Machine Operator Required: No Allergies aluminum Allergy (Intermediate, Verified 10/24/24 06:25) Rash banana Allergy (Intermediate, Verified 10/24/24 06:25) Itching Assessment & Plan Assessment & Plan (1) S/P spinal fusion: Code(s): Z98.1 - Arthrodesis status Category: Surgical Plan Procedure: L3-4 OLIF Yuval is a pleasant 39 year old male who underwent L3-[address] Valdez about 2 months ago. He comes in today for his 2nd postoperative visit. Yuval reports today that his daily pain has reduced to about a 3-4/10 which is significantly better than his 10/10 pain prior to surgery. He has not been taking any pain medication to help with his symptoms. He reports that overall he is very satisfied with his surgery. 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 No new neurological deficits. The patient ambulates well and rises from seated position without difficulty. His posterior and oblique incision sites appear closed and well healed. I would like Yuval to follow up with us again in 1 year out from surgery with a CT scan of his lumbar spine 10 months out from surgery. Nolan Valdez MD,PhD [facility] Orders: Orders XR lumbar spine 4V min 12/26/24 Z98.1 - Arthrodesis status CT lumbar spine wo IV con 08/26/25 Z98.1 - Arthrodesis status Coding Level of Care Code Global (27042) Diagnoses S/P spinal fusion Z98.1
--- OUTSIDE RECORDS SUMMARY | 2024-12-26 15:54 | XMS_ITS | Clinical Summary ---
Author Organization [facility], Address [address] [place] [address] Phone Care Team Providers Care Electric Arc Welder Name Role Phone Jeanne Dobson Primary Care [...] Due Date Last Done Comments Hepatitis B Vaccine (1 of 3 - 19+ 3-dose series) 06/27 Pneumococcal Vaccine: Peds ( 0 to 5 Years) and At-Risk Patients (6 to 49 Years) (1 of 2 - PCV) 2004 Influenza Vaccine (Season Ended) 2025 Insurance [facility] [place] [id number] Medicaid [place] Care Teams Electric Arc Welder Relationship Specialty Start Date End Date Jeanne Dobson PA [address] [place] [address] [place] [address] PCP - General Nutrition 05/13/21
--- OUTSIDE RECORDS SUMMARY | 2024-12-26 15:54 | XMS_ITS | Clinical Summary ---
Author Organization [facility] Address [address] [place] [address] Care Team Providers Care Massotherapist Name Role Phone Unavailable Primary Care Provider [...] Vaccine (2023-2 5 season) 2024 Influenza Vaccine (Season Ended) 2025 HIB Vaccines Aged Out No longer eligi [...]
--- OUTSIDE RECORDS SUMMARY | 2024-12-26 15:54 | XMS_ITS | Clinical Summary ---
Author Organization [facility] Address [address] [place] [address] Care Team Providers Care Lace Finisher Name Role Phone Jeanne Dobson Primary Care Provider +1- [phone] Allergies Active Allergy Reactions Criticality Noted Date [...] 10 mg by mouth every morning. Active albuterol (Ventolin HFA) 90 mcg inhalerIndication s:Moderate persistent asthma, unspecified whether complicated (HCC) Inhale 2 puffs (180 mcg total) by mouth every 4 hours as needed for wheezing or shortness of breath. Use with spacer. 18 g 3 07/19/20 24 Active losartan (COZAAR) 50 mg tabletIndications :Essential hypertension TAKE 1 TABLET(50 MG) BY MOUTH DAILY 90 tablet 10/20/19 25 Active tirzepatide, weight loss, (Zepbound) 10 mg/0.5 mL pen injector pen injectorIndicatio ns:Morbid obesity (HCC) Inject 0.5 mL (10 mg total) under the skin every 7 days. 2 mL 1 11/24/19 25 Active montelukast (SINGULAIR) 10 mg tabletIndications :Moderate persistent asthma, unspecified whether complicated (HCC) Take 1 tablet (10 mg total) by mouth nightly. 90 tablet 1 11/24/19 25 Active ibuprofen (MOTRIN) 800 mg tabletIndications :Spondylolysis Take 1 tablet (800 mg total) by mouth every 8 hours as needed for pain. 90 tablet 11/24/19 25 Active atorvastatin (LIPITOR) 10 mg tabletIndications :Hyperlipidemia, unspecified hyperlipidemia type TAKE 1 TABLET(10 MG) BY MOUTH EVERY NIGHT 30 tablet 12/01/19 25 Active atorvastatin (LIPITOR) 10 mg tabletIndications :Hyperlipidemia, unspecified hyperlipidemia type TAKE 1 TABLET(10 MG) BY MOUTH EVERY NIGHT 30 tablet 2 08/22/19 25 025 Discontinued Active Problems Problem Noted Date Diagnosed Date Hyperlipidemia 01/12/2024 Assessment & Plan (01/12/2024 6:48 PM EDT): Check fasting labs at earliest convenience. Continue lipitor and lifestyle changes. Morbid obesity 10/13/2023 Overview (11/23/2024): Starting weight 287lbs. Patient with alcohol use disorder and HTN, phentermine not recommended. Will increase to zepbound 10mg. 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 Orders Only [facility] [address] [facility] [address] [place] [address] Provider, MD Ingrid 10/24/2024 Orders Only [facility] 326 [facility] 326 [place] [address] Provider, MD Ingrid 10/19/2024 Refill [facility] 175 [facility] 175 [place] [address] Jeanne Dobson PA Essential hypertension 10/10/2024 Orders Only [facility] 175 [facility] 175 [place] [address] Jeanne Dobson PA Spondylolysis 10/10/2024 myChart Message [facility] 175 [facility] 175 [place] [address] Olya Eric, IRMA Oxycodone 10/09/2024 Refill [facility] 175 [facility] 175 [place] [address] Jeanne Dobson PA Spondylolysis 10/03/2024 3:00 PM EST Follow-Up [facility] 175 [facility] 175 [place] [address] Jeanne Dobson PA Spondylolysis (Primary Dx); BMI 40.0-44.9, adult ([facility]) [Z68.41]; Encounter for tobacco use screening [Z01.89]; Morbid obesity from Last 3 Months Immunizations Immunization Administration Dates Next Due Covid-19 Monovalent Vaccine, Moderna, mRNA, PF 07/31/2021,11/11/2020,10/14/2020 Pneumococcal conjugate PCV20 ,polysaccharide [id number] conjugate, adjuvant, PF (Prevnar 20) 07/25/2024 Tetanus [...] Sign Reading Time Taken Comments Blood Pressure 112/74 11/23/2024 11:13 AM EDT Pulse 88 11/23/2024 11:13 AM EDT Temperature 36.3 ??C (97.4 ??F) 11/23/2024 11:13 AM E DT Respiratory Rate 20 05/20/2023 1:10 PM EDT Oxygen Saturation 96% 11/23/2024 11:13 AM EDT Inhaled Oxygen Concentration - - Weight 102.1 kg (225 lb) 11/23/2024 11:13 AM EDT Height 164.2 cm (5' 4.65 ) 11/23/2024 11:13 AM E DT Body Mass Index 37.85 11/23/2024 11:13 AM EDT Plan of Treatment Upcoming Encounters Date Type Department Care Team (Late st Contact Info) Description 01/18/2025 9:40 AM EDT Follow-Up [facility] 175 [facility] 175 [place] [address] Jeanne Dobson PA 175 [place] [address] Health Maintenance Due Date Last Done Comments COVID-19 Vaccine (4 - 2023-2 5 season) 2024 07/31/2021, 11/11/2020, 10/14/2020 Basic [...] Varicella Vaccines Discontinued Procedures * Due to [place] [employer] law, this organization might not be sharing negative HIV tests. Procedure Name Priority Date/Time Associated Diagnosis Comments AMB EXTERNAL CT L-SPINE, OUTSIDE RESULT Routine 10/24/2024 11:39 AM EDT PROCEDURE - SCANNED Routine 10/24/2024 1 0:59 AM EDT HEPATITIS C ANTIBODY W/REFLEX TO HCV RNA, QUANTITATIVE PCR Routine 05/19/2023 10:31 AM EDT Essential (primary) hypertension COMPREHENSIVE METABOLIC PANEL Routine 05/19/2023 10:31 AM EDT Essential (primary) hypertension from Last 3 Months or Most Recently Relevant to Health Maintenance Results * Due to [place] [employer] law, this organization might not be sharing negative HIV tests. * CT L-Spine, Outside Result (10/24/2024 11:39 AM EDT) Anatomical Region Laterality Modality Other us Unknown Provider MD ISLAS EXTERNAL RESULT PROCEDUR ES Final Result * PROCEDURE - SCANNED (10/24/2024 10:59 AM EDT) us Unknown Provider MD SCANNED PROCEDURES Final Res ult * Hepatitis C Antibody w/Reflex to HCV RNA, Quantitative PCR (05/19/2023 10:31 AM EDT) Hepatitis C Antibody NON-REACT SVETLANA NON-REACT SVETLANA 05/20/2023 7:25 AM EDT [employer] Comment: HCV antibody was non-reactive. There is no laboratory evidence of HCV infection. In most cases, no further action is required. However, if recent HCV exposure is suspected, a test for HCV RNA (test code 13836) is suggested. For additional information please refer to http://education.[employer]/faq/FAC79u7 (This link is being provided for informational/ educational purposes only.) Blood Structure of peripheral vein / Unknown 05/19/2023 10:31 AM EDT 05/19/2023 11:20 PM EDT Narrative [facility] - 05/20/2023 7:28 AM EDT FASTING:NO Jeanne GUERRA LAB BLOOD ORDERABLES Final Result [facility] [address] [facility] 3[address] Floor, [place] [address], [employer] [facility] [address] [place] [address] * Comprehensive Metabolic Panel (05/19/2023 10:31 AM EDT) [facility] [address] Glucose 93 65 - 139 mg/dL 05/20/2023 2:36 AM EDT [employer] Comment: ? Non-fasting reference interval BUN 12 7 - 25 mg/dL 05/20/2023 2:36 AM [employer] Creatinine 0.89 0.60 - 1.26 mg/dL 05/20/2023 2:36 AM [employer] eGFR 113 > OR = 60 mL/min/1. 73m2 05/20/2023 2:36 AM [employer] Bun/Creatinine Ratio SEE NOTE: 6 22 (calc) 05/20/2023 2:36 AM [employer] Comment: ?? Not Reported: BUN and Creatinine are within ?? reference range. ? Sodium 137 135 - 146 mmol/L 05/20/2023 2:36 AM [facility] [employer] Potassium 4.5 3.5 - 5.3 mmol/L 05/20/2023 2:36 AM [employer] Chloride 101 98 - 110 mmol/L 05/20/2023 2:36 AM [employer] Carbon Dioxide 27 20 - 32 mmol/L 05/20/2023 2:36 AM [employer] Calcium 9.6 8.6 - 10.3 mg/dL 05/20/2023 2:36 AM [employer] Protein, Total 6.9 6.1 - 8.1 g/dL 05/20/2023 2:36 AM EDT [facility] Albumin 4.4 3.6 - 5.1 g/dL 05/20/2023 2:36 AM EDT [facility] Globulin 2.5 1.9 - 3.7 g/dL (calc) 05/20/2023 2:36 AM EDT [facility] Albumin/Globuli n Ratio 1.8 1.0 - 2.5 (calc) 05/20/2023 2:36 AM EDT [facility] Bilirubin, Total 0.5 0.2 - 1.2 mg/dL 05/20/2023 2:36 AM EDT [facility] Alkaline Phosphatase 57 36 - 130 U/L 05/20/2023 2:36 AM EDT [facility] AST 19 10 - 40 U/L 05/20/2023 2:36 AM EDT [facility] ALT 29 9 - 46 U/L 05/20/2023 2:36 AM EDT [facility] Blood Structure of peripheral vein / Unknown 05/19/2023 10:31 AM EDT 05/19/2023 11:02 PM EDT Narrative [facility] - 05/20/2023 7:28 AM EDT FASTING:NO Jeanne GUERRA LAB BLOOD ORDERABLES Final Result [facility] [address] [facility] [address], [place] [address], [employer] [facility] [address] [place] [address] from Last 3 Months or Most Recently Relevant to Health Maintenance Insurance [employer] HSNO/FREE CARE [facility] Advance Directives Documents on File Type Date Recorded 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
--- OUTSIDE RECORDS SUMMARY | 2024-12-26 15:54 | XMS_ITS | Referral Summary ---
Author Organization [facility] Address [address] [place] [address] Care Team Providers Care Percussion Tuner Name Role Phone Jeanne Dobson Primary Care Provider +1- [phone] Encounters Date Type Department Care Team Description 11/30/2024 myChart Message [facility] 175 [facility] [address] [place] [address] Olya Eric, IRMA Lipitor 11/30/2024 Refill [facility] 175 [facility] [address] [place] [address] Jeanne Dobson PA Hyperlipidemia, unspecified hyperlipidemia type 11/23/2024 11:20 AM EDT Follow-Up [facility] 175 [facility] [address] [place] [address] Jeanne Dobson PA Morbid obesity (HCC) (Primary Dx); Encounter for tobacco use screening; Moderate persistent asthma, unspecified whether complicated (HCC); 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 [place] [address] Provider, MD Ingrid 10/19/2024 Refill [facility] 175 [facility] [address] [place] [address] Jeanne Dobson PA Essential hypertension 10/10/2024 Orders Only [facility] 175 [facility] [address] [place] [address] Jeanne Dobson PA Spondylolysis 10/10/2024 myChart Message [facility] 175 [facility] [address] [place] [address], [place] [phone] Olya Eric RN Oxycodone 10/09/[address] [phone] Jeanne Dobson PA Spondylolysis 10/03/2024 3:00 PM EST Follow-Up [address] [id number] Jeanne Dobson PA Spondylolysis (Primary Dx); BMI 40.0-44.9, adult ([facility]) [Z68.41]; Encounter for tobacco use screening [Z01.89]; Morbid obesity from Last 3 Months Allergies Active Allergy [...] the patient, his and Terri, his manager interface who connected with us over the phone [...] until seizure free for 6 months in [place]. Please check with local DMV if need [...] mRNA, PF 07/31/2021,11/11/2020,10/14/2020 Pneumococcal conjugate PCV20 ,polysaccharide [id number] conjugate, adjuvant, PF (Prevnar 20) 07/25/2024 Tetanus [...] Info) Description 01/18/2025 9:40 AM EDT Follow-Up [address] [id number] Jeanne Dobson PA [address] [place] [address] Procedures * Due to [place] [employer] law, this organization might not be sharing [...] to Health Maintenance Results * Due to [place] [employer] law, this organization might not be sharing [...] RNA, Quantitative PCR (05/19/2023 10:31 AM EDT) Pathologist [facility] Hepatitis C Antibody NON-REACT SVETLANA NON-REACT SVETLANA 05/20/2023 7:25 AM EDT [employer] Comment: HCV antibody was non-reactive. There is no laboratory evidence of HCV infection. In most cases, no further action is required. However, if recent HCV exposure is suspected, a test for HCV RNA (test code 13295) is suggested. For additional information please refer to http://education.[employer]/faq/POO38d9 (This link is being provided for informational/ educational purposes only.) Blood Structure of peripheral vein / Unknown 05/19/2023 10:31 AM EDT 05/19/2023 11:20 PM EDT Narrative [facility] - 05/20/2023 7:28 AM EDT FASTING:NO us Jeanne GUERRA LAB BLOOD ORDERABLES Final Result [facility] 200 [facility] 3rd Floor, [place] [address], [place] [phone] [employer] [facility] [address] [place] [address] * Comprehensive Metabolic Panel (05/19/2023 10:31 AM EDT) Pathologist [facility] Glucose 93 65 - 139 mg/dL 05/20/2023 2:36 AM EDT [employer] [facility] Comment: ? Non-fasting reference interval BUN 12 7 - 25 mg/dL 05/20/2023 2:36 AM EDT [employer] Creatinine 0.89 0.60 - 1.26 mg/dL 05/20/2023 2:36 AM EDT [employer] eGFR 113 > OR = 60 mL/min/1. 73m2 05/20/2023 2:36 AM EDT [employer] Bun/Creatinine Ratio SEE NOTE: (calc) 05/20/2023 2:36 AM [employer] [employer] [email or web address] [facility] Comment: ?? Not Reported: BUN and Creatinine are within ?? reference range. ? Sodium 137 135 - 146 mmol/L 05/20/2023 2:36 AM [facility] [employer] [email or web address] [facility] Potassium 4.5 3.5 - 5.3 mmol/L 05/20/2023 2:36 AM [employer] Chloride 101 98 - 110 mmol/L 05/20/2023 2:36 AM EDLe [email or web address] Carbon Dioxide 27 20 - 32 mmol/L 05/20/2023 2:36 AM [facility]Le [employer] [email or web address] [facility] Calcium 9.6 8.6 - 10.3 mg/dL 05/20/2023 2:36 AM [employer] [facility] Protein, Total 6.9 6.1 - 8.1 g/dL 05/20/2023 2:36 AM [employer] [facility] Albumin 4.4 3.6 - 5.1 g/dL 05/20/2023 2:36 AM [employer] [facility] Globulin 2.5 1.9 - 3.7 g/dL (calc) 05/20/2023 2:36 AM [employer] [facility] Albumin/Globuli n Ratio 1.8 1.0 - 2.5 (calc) 05/20/2023 2:36 AM [employer] [facility] Bilirubin, Total 0.5 0.2 - 1.2 mg/dL 05/20/2023 2:36 AM [employer] [facility] Alkaline Phosphatase 57 36 - 130 U/L 05/20/2023 2:36 AM [employer] [facility] AST 19 10 - 40 U/L 05/20/2023 2:36 AM [employer] [facility] ALT 29 9 - 46 U/L 05/20/2023 2:36 AM [employer] [facility] Blood Structure of peripheral vein / Unknown 05/19/2023 10:31 AM EDT 05/19/2023 11:02 PM EDT Narrative [facility] - 05/20/2023 7:28 AM EDT FASTING:NO Jeanne GUERRA LAB BLOOD ORDERABLES Final Result [facility] [address] [facility] [address]rd Floor, [place] [address], [place] [phone] [facility] [address] [place] [address] from Last 3 Months or Most Recently Relevant to Health Maintenance Insurance [facility] HS/FREE CARE [facility] Advance Directives Documents on File Type Date Recorded Patient Loose Hand Packer Expl anation Advance Directive 01/16/2013 12:00 AM [...] 3:12 PM 06/08/2017 3:51 PM Care Teams Percussion Tuner Relationship Specialty Start Date End Date Jeanne Dobson PA [address] [place] [phone] PCP - General Physician Wireless Development Manager 03/09/22
--- OUTSIDE RECORDS SUMMARY | 2024-12-26 15:55 | XMS_ITS | Encounter Summary ---
Author Organization [facility] Address [address] [place] [address] Care Team Providers Care Rehabilitation Therapy Technician Name Role Phone Jeanne Dobson Primary Care Provider +1- [phone] Encounter Details Date Type Department Care Team (Late st Contact Info) Description 11/30/2024 myChart Message [facility] 175 [facility] [address] [place] [address] Olya Eric, RN Lipitor Social History Tobacco Use Types Packs/Day Years [...] Info) Description 01/18/2025 9:40 AM EDT Follow-Up [facility] 175 [facility] [address] [place] [address] Jeanne Dobson PA [address] [place] [address] documented as of this encounter Visit Diagnoses Not on filedocumented in this encounter Care Teams Rehabilitation Therapy Technician Relationship Specialty Start Date End Date Jeanne Dobson PA [address] [place] [address] PCP - General Physician Vb Net Programmer 8/1/22 documented as of this encounter
--- OUTSIDE RECORDS SUMMARY | 2024-12-26 15:55 | XMS_ITS | Data Portability ---
Author Organization [facility], [facility] Address [address] [place] [address] Care Team Providers Care Mold Press Operator Name Role Phone ESTRELLA GORDILLO Primary Care Provider DUY ESTRELLA Referring Provider Assessment No assessment recorded. Plan of Treatment Reminders Order Date Submit Date Provider Last Modified By Organization Details Last Modified Time Details Appointments None recorded. Lab drug of abuse panel, urine - chain of custody - 10 drug screen [id number] [facility] Patient [facility], [address] [place], [address], 8 17:27:37 Referral None recorded. Procedures None [...] 8 93 /min 162.56 cm 36 kg/m2 57375.4 g 124 mm[Hg] 86 mm[Hg] Shashi Lobato NP [facility] 8 10:58:29 Social History None recorded. Functional Status None recorded. Mental Status None recorded. Family History Nothing Reported. Medical History No medical history recorded. Past Encounters Encounter ID Performer Location Encounter Start Date Encounter Closed Date Diagnosis/Indication Diagnosis SNOMED-CT Code Diagnosis ICD10 Code Diagnosis Note [id number] SHASHI UP NP [facility] [employer] [address] [place] [address] 05/06/2018 09:44:02 05/06/2018 11:24:25 History and physical examination, pre-employment [id number] Z02.1 [id number] Silvio carrasquillo DO [facility] [address] [address] 08/14/2019 09:00:48 08/14/2019 09:59:25 [id number] Silvio carrasquillo [facility] [address] [address] 09/22/2019 12:57:49 09/22/2019 13:04:10 Health Concerns Section Related Observation LastModified by Organization Detai ls LastModified Time None Recorded Concern Status LastModified by Organization Details LastModified Time None Recorded Advance Directives Directive None Recorded Payers Insurance Date Sequence Insurance Name Policy Number Policy Drake Covered Member ID Drake Member ID Guarantor Name 08/18/2019 [employer] Yuval Faust [employer] Yuval Reyeslakisha 06/01/2023 1 MEDICAID-[place]: [facility] Yuval Reyeslakisha [id number] Yuval Amylakisha 06/01/2023 1 BCBS-[place] [employer] ([place]) [id number] Yuval Faust [id number] Yuval Faust Notes Date Note Type Note Provider Name and Address Organization Details Recorded Time 05/06/2018 text/html Patient presents to the office for a pre-employment physical as a new employee for [employer]. He believes, based upon the job description that was provided to him that he can handle all duties and responsibilities of the job. He denies any history of work related injuries. Shashi Lobato NP [facility] 05/06/2018 10:58:43
--- OUTSIDE RECORDS SUMMARY | 2024-12-26 15:55 | XMS_ITS | Data Portability ---
Author Organization [facility] Address [address] [place] [address] Care Team Providers Care Unload Associate Name Role Phone HELENE LANGFORD Primary Care Provider [phone] HELENE LANGFORD Referring Provider SAM JOHNSON Primary [...] -- PATIE NT: ELSIE KEEN 840 LOC: [facility] U #: [id number] AGE/S X: 34/M ROOM: RE09/[address]: Robe Alex DO : 06/27 BED: DIS: STATU S: DEP REF PROCE DURE/ OPERA TION PERFO RMED: EXCIS ION SPEC #: [id number] RECD: 09/08-0 911 STATU S: RUBIA PONCE #: [id number] ALBERTA: 09/07-[address]: Mary [...] LESIO N, RIGHT NECK, EXCIS ION: - [place] l melan ocyti c nevus . Gross Exami natio n A. Recei les in forma simi label ed [facility] Front [facility], 06/27 and left scalp , cyst . It consi sts of an a well- circu mscri bed cysti c lesio n measu ring 0.7 x 0.4 x 0.4 cm. Bisec ana lilia, AP, one casse tte. B. Recei les in forma simi label ed [facility] Front [facility], 06/27 and rig t scalp [...] ----- ----- ----- ----- -- Not Available [facility] [address] [place], [address], 09/11/2019 12:25:56 Result Notes None recorded. Problems No Known Problems Procedures Surgical History Date Name Laterality Status Provider Name and Address Organization Details Recorded Time 0 excision of cyst completed Shashi Blas [facility] 09/20/2019 15:18:59 Imaging Results None recorded. Procedure Notes None recorded. Medical Equipment None Reported. Allergies Allergen ID Allergen Name Allergen Category Reaction Reaction Severity Criticality Documentation Date Start Date Code Code System Note Provider Name and Address Organization Details Recorded Time 043059 banana extract food,medi cation itching mild Not available 08/14/2019 19325 9 RxNorm [facility] NAGI Mosqueda [facility] 0 09:32:35 278282 aluminum environme nt,medica tion rash moderate Not available 08/14/2019 91548 04 [facility] 0 09:33:16 Medications Name Sig Start [...] Address Organization Details Last Updated DateTime 0 288081. 83 g 162.56 cm 40.7 kg/m2 87 /min 132 mm[Hg] 84 mm[Hg] Hanna Mosqueda MA [facility] 0 09:31:49 Date Recorded Body height Body mass index (BMI) Body weight Provider Name and Address Organization Details Last Updated DateTime 09/22/2019 162.56 cm 40.9 kg/m2 213258.42 g Olya Mohanasseur [facility] 09/22/2019 13:00:46 Social History None recorded. Functional Status None recorded. Mental Status None recorded. Family History Nothing Reported. Medical History No medical history recorded. Past Encounters Encounter ID Performer Location Encounter Start Date Encounter Closed Date Diagnosis/Indication Diagnosis SNOMED-CT Code Diagnosis ICD10 Code Diagnosis Note [id number] SHASHI UP NP Occupatio [facility] [address] [place] [address] 05/06/2018 09:44:02 05/06/2018 11:24:25 [id number] Silvio carrasquillo DO [facility] [address],[facility] [place] [address] 08/14/2019 09:00:48 08/14/2019 09:59:25 Cyst of scalp 027046992 L72.9 book for local excision Consent obtained [id number] Silvio carrasquillo DO [facility] [address],[facility] [place] [address] 09/22/2019 12:57:49 09/22/2019 13:04:10 Postoperative visit 948190983 Z09 OK to D/C and follow up prn Health Concerns Section Related Observation LastModified by Organization Detai ls LastModified Time None Recorded Concern Status LastModified by Organization Details LastModified Time None Recorded Advance Directives Directive None Recorded Payers Insurance Date Sequence Insurance Name Policy Number Policy Drake Covered Member ID Drake Member ID Guarantor Name 08/18/2019 [email or web address] Yuval Faust LEO Faust 06/01/2023 1 [place] Yuval Faust [id number] Yuval Faust 06/01/2023 1 BCBS[place] BLUE SHIELD ([place]O) [id number] Yuval Faust [id number] 1 [id number] Yuval Faust Notes Date Note Type Note Provider Name and Address Organization Details Recorded Time 08/14/2019 text/html 34 yo M with history o2 scalp cysts 3x3 and 1x1 cysts. No erythema or induration. Denies any pain, but notes discomfort due to location. Silvio Eason DO [address] [place] [address] N[place], [address], [facility] 08/18/2019 13:02:37 09/22/2019 text/html 2 week follow-up from surgery fro scalp cysts removal. No complaints. Incisions healing well. Path cysts. Silvio Eason DO [address] [place], [place] [address], [address], [facility] 09/22/2019 13:15:27
--- OUTSIDE RECORDS SUMMARY | 2024-12-26 15:55 | XMS_ITS | Clinical Summary ---
Author Organization [facility] Address [address] [place] [address] Care Team Providers Care Babbitt Spinner Name Role Phone Unavailable Primary Care Provider [...]
== END 2024-12-26 15:17 | disposition home or self-care (01) ==
LOC: HO.HNS 14:32
PROVIDERS: PCP Physician Assistant; Visit Provider Physician Assistant
DX: Z98.1 Arthrodesis status (principal)
CPT/HCPCS: 99024

== ENCOUNTER → 2024-12-26 14:36 | Outpatient (BNV) | payer MEDICAID, SELFPAY | PROVIDERS: Visit Provider Radiology Diagnostic Radiology | DX: Z98.1 Arthrodesis status (principal) | CPT/HCPCS: 72110 ==

== ENCOUNTER 2025-05-17 12:28 | Outpatient (AMB) | payer MEDICAID, SELFPAY ==
--- NOTE | 2025-05-17 12:57 | HO.SPINEOV ---
Vital Signs 05/17/25 13:01 Weight 180 lb Intake Visit Reasons: pt fell Left sided pain Intake Note: Mr. Faust is here today c/o sharp neck and back pain and numbness as he fell. 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 He sustained a fall about 2 days ago where he landed on his left side, what it sounds like he has he was walking up a flight of stairs and fell forward. He landed on his left side. He did not strike his head or have any unconsciousness. Since that time though he has had terrible pain in his subscapular area, neck, low back as well as feelings of pain and numbness going down his left leg. 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 He may have some numbness of his hands. He drove himself here to the visit today, was able to ambulate around the office independently however. On examination, he appears uncomfortable, any attempts to manipulate his arm or leg give him significant pain in his back. He describes it as pain in encompassing his whole back. He has also has pain in his left knee with manipulation as well there is bruising on this. Getting a true neurological examination here is difficult secondary to pain and discomfort. Reflexes demonstrate hyperreflexia, no Yanez's sign but there is clonus in his ankles. I sent him for x-rays here in the office and the hardware from the artificial disc implant in his neck and the lumbar x-rays look stable compared to previous imaging. There is no final report back yet. There was a knee x-ray which was done, no report yet available. I talked to him about needing to get a proper evaluation in an emergency room. We had a discussion about whether or not he would be able to safely drive back to where he lives and get an evaluation. I offered and recommended him the option to go over to the emergency room here at [facility] and have some screening evaluations and possibly be transferred to a tertiary facility where he could be evaluated by the trauma team. He deferred, would like to just handle this on his own. I will review the x-rays with Dr. Valdez and follow up on the radiology reports once they are completed. I told him to call me in the next day or 2 and let me know how it is going, to make sure he did get evaluated. Total amount of time spent in this visit was 20 minutes in discussion of symptoms, cervical x-ray, lumbar x-ray and knee x-ray imaging results and subsequent plan of care Yuval Valdez MD,PhD [facility] Orders: Orders XR lumbar spine 4V min Today Z98.1 - Arthrodesis status XR cervical spine 4V Today M54.2 - Cervicalgia XR knee LT 2V Today M25.562 - Pain in left knee Coding Level of Care Code Est Pt Level 3 (49757) Diagnoses Neck pain M54.2 S/P spinal fusion Z98.1 Left knee pain M25.562
== END 2025-05-17 13:48 | disposition home or self-care (01) ==
PROVIDERS: Visit Provider Physician Assistant
DX: M54.2 Cervicalgia (principal); Z98.1 Arthrodesis status; M25.562 Pain in left knee
CPT/HCPCS: 99213

== ENCOUNTER 2025-05-17 12:28 | Outpatient (REF) | payer MEDICAID, SELFPAY ==
--- NOTE | ~2025-05-17 | XR_ITS ---
Exam: 4 view lumbar spine x-ray Technique AP, and lateral: Flexion, neutral, and extension view x-rays of the lumbar spine. Prior: December 26, 2024 INDICATION: Z98.1 - Arthrodesis status FINDINGS: There are 5 nonrib-bearing lumbar segments. T12-L1: Unremarkable L1-L2: Unremarkable L2-L3: Unremarkable L3-L4: Posterior pedicle screws and rods foot views the level. There is interbody spacer. There is no subsidence. There is no instability. L4-L5: There is interbody spacer without subsidence. There is no sign of instability. L5-S1: There is an abandoned headless screw in the right side of S1. There is interbody spacer with a stabilizing central screw with subsidence into inferior L5 and likely superior S1. There is subchondral sclerosis. There is grade 1 anterolisthesis which does not significantly change during flexion and extension. XR/XR lumbar spine 4V min IMPRESSION: Postoperative changes without instability. L5-S1 interbody spacer with subsidence into inferior L5 and probably into superior S1. Electronically signed by: Tj Mcdonald MD 05/17/2025 02:44 PM EDT
--- NOTE | ~2025-05-17 | XR_ITS ---
EXAMINATION: XR CERVICAL SPINE CLINICAL INFORMATION: M54.2 - Cervicalgia COMPARISON: Previous x-ray September 2024 TECHNIQUE: 4 views of the cervical spine were obtained including flexion and extension. FINDINGS: Stable postsurgical change post intervertebral body disc spacer/arthrodesis at C5-6. Bone alignment is normal. No fracture or dislocation. No evidence of instability on flexion and extension views. Disc spaces otherwise normal. Prevertebral soft tissues are normal. XR/XR cervical spine 4V IMPRESSION: Stable postsurgical change at C5-6. No instability on flexion and extension views. Electronically signed by: Magalys Mitchell MD 05/17/2025 02:47 PM EDT
--- NOTE | ~2025-05-17 | XR_ITS ---
EXAMINATION: XR KNEE, LEFT CLINICAL INFORMATION: M25.562 - Pain in left knee COMPARISON: None available. TECHNIQUE: AP and lateral views of the left knee. FINDINGS: There is no joint effusion. Small marginal osteophyte is are visible along the medial joint line. There is minimal narrowing of the medial joint space. No other abnormality is evident. XR/XR knee LT 2V IMPRESSION: Minimal degenerative change. Electronically signed by: Tj Mcdonald MD 05/17/2025 02:37 PM EDT
== END 2025-05-17 12:29 | disposition home or self-care (01) ==
LOC: HO.HOSX 12:28
PROVIDERS: Visit Provider Physician Assistant
DX: M25.562 Pain in left knee (principal); M54.2 Cervicalgia; Z98.1 Arthrodesis status
CPT/HCPCS: 72050; 72110; 73560; 99212

== ENCOUNTER → 2025-05-17 13:19 | Outpatient (BNV) | payer MEDICAID, SELFPAY | PROVIDERS: Visit Provider Radiology Diagnostic Radiology | DX: M54.2 Cervicalgia (principal); Z98.1 Arthrodesis status; M25.562 Pain in left knee | CPT/HCPCS: 72050; 72110; 73560 ==